=== PATIENT | male | born 1960 | race African-American/Black ===

== ENCOUNTER 2018-02-20 03:09 | Inpatient (IN) | payer OTHER, SELFPAY ==
[2018-02-20 03:38] LABS: #Basophils 0.1 thou/uL (0.0-0.2); #Eosinphils 0.3 thou/uL (0.0-0.7); #Lymphocytes 1.3 thou/uL (1.20-3.40); #Monocytes 0.7 thou/uL (0.11-0.59); #Neutrophils 5.5 thou/uL (1.40-6.50); %Basophils 0.7 % (0.0-1.0); %Eosinophils 3.7 % (0.0-10.0); %Lymphocytes 16.7 % (21.0-51.0); %Neutrophils 69.9 % (42.0-75.0); Mean Corpuscular HGB CONC 33.1 g/dL (32.0-36.0); Mean Corpuscular Hemoglobin 30.6 pg (27.0-31.0); Mean Corpuscular Volume 92.5 fL (78.0-98.0); Mean Platelet Volume 7.3 fL (7.4-10.4); Platelet Count 399 thou/uL (130-400); RBC Distribution Width 12.7 % (11.5-14.5); Red Blood Cell (RBC) Count 3.27 mill/uL (4.70-6.10); White Blood Cell (WBC) Count 7.9 thou/uL (4.8-10.8)
[2018-02-20] MEDS ORDERED: Furosemide 40 MG/4 ML VIAL ONE (03:44)
[2018-02-20] MEDS ORDERED: Nitroglycerin 2% Ointment 1 INCH/1 GM Packet ONE (03:44)
[2018-02-20 04:02] LABS: ALT (SGPT) 30 U/L (8-55); AST (SGOT) 22 U/L (5-34); Albumin 4.3 g/dL (3.5-5.0); Alkaline Phosphatase 82 U/L (40-150); Anion Gap 13 mmol/L (10-20); BUN (Urea Nitrogen) 27 mg/dL (8.4-25.7); Bilirubin, Total 0.7 mg/dL (0.2-1.2); Calc. Creatinine Clearance 0 mL/min (70-130); Calcium 9.7 mg/dL (7.8-10.44); Carbon Dioxide 23 mmol/L (22-29); Chloride 108 mmol/L (98-107); Estimated GFR-MDRD 36; Globulin 3.7 g/dL (2.4-3.5); Glucose 182 mg/dL (70-105); Potassium 4.5 mmol/L (3.5-5.1); Sodium 139 mmol/L (136-145)
[2018-02-20] MEDS ORDERED: Senokot S 8.6-50 MG TAB PO PRN (05:50)
[2018-02-20] MEDS ORDERED: Zolpidem Tartrate 5 MG TAB PO PRN (05:50)
[2018-02-20] MEDS ORDERED: Bisacodyl 10 MG SUPP PR PRN (05:50)
[2018-02-20] MEDS ORDERED: Ondansetron PF 4 MG/2 ML Vial IVP PRN (05:50)
[2018-02-20] MEDS ORDERED: Bisacodyl 5 MG TAB PO PRN (05:50)
[2018-02-20] MEDS ORDERED: Ondansetron ODT 4 MG TAB PO PRN (05:50)
[2018-02-20] MEDS ORDERED: Calcium Carbonate 500 MG ChewTAB PO PRN (05:50)
[2018-02-20] MEDS ORDERED: Acetaminophen 325 MG TAB PO PRN (05:50)
[2018-02-20 06:48] LABS: Troponin I Less than 0.010 ng/mL (< 0.028)
[2018-02-20] MEDS ORDERED: Eucerin (Mineral Oil/Petrolatum,White) 30 gm Jar TOP PRN (06:56)
[2018-02-20] MEDS ORDERED: Diabetic Tussin 200 MG/10 ML UDCUP PO PRN (06:56)
[2018-02-20] MEDS ORDERED: Loperamide HCl 2 MG CAP PO PRN (06:56)
[2018-02-20] MEDS ORDERED: Sodium Chloride 0.65% Nasal 44 ML BOT EA NARE PRN (06:56)
[2018-02-20] MEDS ORDERED: Artificial Tears 18 DROP/0.9 ML EA EYE PRN (06:56)
[2018-02-20] MEDS ORDERED: Cepastat Lozenges 1 LOZ PO PRN (06:56)
[2018-02-20] MEDS ORDERED: Loratadine 10 MG TAB PO PRN (06:56)
[2018-02-20] MEDS ORDERED: Nitroglycerin 0.4 MG TAB (25 Tab Bottle) SL PRN (06:56)
[2018-02-20] MEDS ORDERED: Dextrose 50% Abboject 50 ML SYRINGE SLOW IVP PRN (07:02)
[2018-02-20] MEDS ORDERED: Dextrose 5% in Water 1,000 ML IV PRN (07:02)
[2018-02-20] MEDS ORDERED: HumaLOG 300 UNITS/3 ML VIAL SC PRN ×2 (07:02)
--- NOTE | 2018-02-20 08:05 | RAD ---
SINGLE VIEW OF THE CHEST: COMPARISON: None. HISTORY: Shortness of breath. FINDINGS: A single view of the chest shows a normal-size cardiomediastinal silhouette. Bilateral perihilar ful lness is seen. No pleural effusion is seen. IMPRESSION: Perihilar fullness can be seen with reactive airways disease or atypical infection. POS: [facility]
[2018-02-20] MEDS: Ferrous Sulfate 325 MG TAB PO SCH (08:42)
[2018-02-20] MEDS: Carvedilol 6.25 MG TAB PO SCH ×2 (08:46→20:30)
[2018-02-20] MEDS: Heparin 5,000 UNITS/ML VIAL SC SCH ×3 (08:48→20:33)
[2018-02-20] MEDS ORDERED: Amlodipine 5 MG TAB ONE (08:57)
[2018-02-20] MEDS ORDERED: Aspirin 325 MG TAB ONE (08:57)
[2018-02-20] MEDS ORDERED: Famotidine 20 MG TAB ONE (08:57)
[2018-02-20] MEDS: Aspirin 325 MG TAB PO SCH (08:59)
[2018-02-20] MEDS: Amlodipine 5 MG TAB PO SCH (08:59)
[2018-02-20] MEDS: Famotidine 20 MG TAB PO SCH (08:59)
[2018-02-20] MEDS ORDERED: Famotidine/PF 20 mg/2ml Vial SLOW IVP SCH (09:00)
[2018-02-20] MEDS ORDERED: Amlodipine 10 MG TAB PO SCH (09:00)
[2018-02-20] MEDS ORDERED: Labetalol HCl 100 MG/20 ML VIAL SLOW IVP PRN (10:01)
[2018-02-20 10:24] LABS: Troponin I Less than 0.010 ng/mL (< 0.028)
--- NOTE | 2018-02-20 10:44 | HP ---
PRIMARY CARE PHYSICIAN: Dr. Grayson Corbin. REASON FOR ADMISSION: Acute pulmonary edema, acute diastolic heart failure. HISTORY OF PRESENT ILLNESS: A 58-year-old male, who has increasing shortness of breath for last 2 to 3 days. He also has increasing lower extremity edema for about a week or two. He has dyspnea at rest. Last night he woke up around 1:00 a.m. and he went to bathroom and he was feeling extremely short of breath and short of breath have gradually gotten worse to the point he was not able to breathe. He was not able to lie down flat and he was feeling congested in his chest and that is why he called 911 and the patient was brought to emergency room for evaluation. In the emergency room, the patient was hypertensive. His blood pressure was elevated to 217/122. He was in respiratory distress. He was given Lasix, labetalol, and nitro patch and after that, the patient slowly improved. The patient reports that he is taking medication as prescribed. He denies any chest pain, palpitation, or syncope. He denies any fever or chills. He denies any flu-like symptoms. He denies any UTI symptoms. He does report increased weight gain. He denies any constipation, diarrhea, melena, or hematochezia. REVIEW OF SYSTEMS: CONSTITUTIONAL: Negative for weight loss or gain, ability to conduct usual activities. SKIN: Negative for rash, itching. EYES: Negative for double vision, pain. ENT/MOUTH: Negative for nose bleeding, neck stiffness, pain, tenderness. CARDIOVASCULAR: Negative for palpitations, dyspnea on exertion, orthopnea. RESPIRATORY: Negative for shortness of breath, wheezing, cough, hemoptysis, fever or night sweats. GASTROINTESTINAL: Negative for poor appetite, abdominal pain, heartburn, nausea, vomiting, constipation, or diarrhea. GENITOURINARY: Negative for urgency, frequency, dysuria, nocturia. MUSCULOSKELETAL: Negative for pain, swelling. NEUROLOGIC/PSYCHIATRIC: Negative for anxiety, depression. ALLERGY/IMMUNOLOGIC: Negative for skin rash, bleeding tendency. See my HPI for pertinent positive and negative. All other review of systems reviewed and negative except as mentioned in HPI. ALLERGIES: NO KNOWN DRUG ALLERGIES. CURRENT HOME MEDICATIONS: 1. Glyburide with metformin 5/500 two tablets twice daily. 2. Coreg 25 mg twice daily. 3. Amlodipine 10 mg daily. 4. Zocor 20 mg p.o. at bedtime. PAST MEDICAL HISTORY: Diabetes, type 2; hypertension; dyslipidemia; CKD, stage 3; and normocytic anemia. PAST SURGICAL HISTORY: Reviewed and negative. PAST PSYCHIATRIC HISTORY: Reviewed and negative. SOCIAL HISTORY: The patient is , lives at home with family. No history of tobacco, alcohol, or illicit drug abuse. FAMILY HISTORY: No family history of stroke or cancer. Hypertension and diabetes runs among several family members. EMERGENCY ROOM COURSE: The patient is given labetalol 10 mg, Lasix 40 mg, and nitro patch. PHYSICAL EXAMINATION: VITAL SIGNS: On arrival, blood pressure 217/122, pulse 104, respiratory rate 25, and saturation 96% on 2 L oxygen. Weight 111.1 kg. GENERAL: The patient is currently alert, awake. No obvious acute distress. HEENT: Head; normocephalic, atraumatic. Eyes; pupils are round and reactive to light. Extraocular muscle intact. ENT; oropharynx within normal limits. Moist mucous membranes. No oral lesion. No pharyngeal erythema. No exudate. NECK: Supple. No JVD. No thyromegaly. No carotid bruit. LUNGS: Few basilar rales noted. Air entry reduced. CARDIAC: S1 and S2 regular. No murmur elicited. No gallop. No rub. ABDOMEN: Soft. Bowel sounds present. Nontender. Nondistended. No organomegaly. No mass. No suprapubic tenderness. BACK: Unremarkable. No CVA tenderness. EXTREMITIES: Upper extremities; passive movement of all joints are normal. Lower extremity; bilateral lower extremity pitting edema +2 up to knee level. NEUROLOGIC: Nonfocal examination. The patient moves all 4 limbs. Plantar bilateral flexor. SKIN: No skin rash. PSYCHIATRIC: Normal affect. SIGNIFICANT LABORATORY DATA: 1. EKG showing sinus tachycardia, low voltage QRS. 2. Chest x-ray showing pulmonary edema. 3. CBC; WBC 7.9, hemoglobin 10.0, and platelets 399. 4. BMP; sodium 139, potassium 4.5, chloride 108, carbon dioxide 23, BUN 27, creatinine 2.28, glucose 182, and calcium 9.7. 5. LFT; AST 22, ALT 30, alkaline phosphatase 82, and albumin 4.3. Cardiac enzyme negative x2. BNP 379.4. ASSESSMENT AND PLAN: 1. Acute pulmonary edema, likely due to underlying acute diastolic heart failure as well as hypertensive urgency. Currently, problem seems resolved and improved with Lasix and nitro patch. 2. Acute diastolic heart failure, stage C, likely precipitated by hypertensive urgency associated with acute pulmonary edema, seems like the condition is improving, but he still has significant fluid overload status, will require diuresis. 3. Hypertensive urgency, likely related with gradual worsening of fluid overload status. 4. Diabetes, type 2. 5. Anemia, normocytic normochromic. 6. Chronic kidney disease, stage 3. 7. Dyslipidemia. 8. Hypertension. PLAN: Full admission to telemetry floor. Nitro patch q.8 hourly. Restart amlodipine 10 mg daily. Coreg, we will reduce to 12.5 mg p.o. b.i.d. given pulmonary edema. Start Lipitor 10 mg p.o. at bedtime, ferrous sulfate 325 mg p.o. daily. Continue Lasix 40 mg IV b.i.d. We will monitor renal function, electrolytes, and replace accordingly. Daily weight. Echocardiography to assess EF and other structural abnormality. We will hold on his oral hypoglycemic medication because of renal insufficiency, instead we will start with hyperglycemia protocol order. We will check ferritin, hemoglobin A1c, magnesium, phosphorus, PTH, uric acid, TSH. Tomorrow morning, we will also check urine protein-creatinine ratio. Dietary education is given. Plan of care discussed with the patient and his . DVT prophylaxis, heparin 5000 units subcu twice daily. GI prophylaxis, Pepcid 20 mg p.o. daily. CODE STATUS: The patient is full code. The patient's is surrogate decision maker. DISPOSITION PLAN: Based on clinical course, we are expecting the patient's stay in hospital more than 2 midnights. Plan of care discussed with the patient in detail. Job ID: [id number]
[2018-02-20 11:05] VITALS: BMI 35.8
[2018-02-20] MEDS: hydrALAZINE 20 MG/ML VIAL SLOW IVP PRN ×2 (11:33→15:56)
[2018-02-20] MEDS ORDERED: hydrALAZINE 25 MG TAB PO SCH (13:15)
[2018-02-20 13:27] LABS: Bilirubin Negative (Negative); Blood, Urine Small (Negative); Clarity CLEAR (Clear); Glucose, Urine (Dipstick) 100 mg/dL (Negative); Leukocyte Negative (Negative); Nitrite Negative (Negative); Protein, Urine (Dipstick) 300 mg/dL (Neg-Trace); Specific Gravity, Urine 1.011 (1.002-1.036); pH, Urine 5.5 (5.0-9.0)
[2018-02-20 13:32] LABS: Bacteria/HPF None Seen HPF (None Seen); Hyaline Casts/LPF 0-3 HYALINE CAST LPF (0-3 Hyaline); RBC/HPF 0-3 HPF (0-3); Squamous Epithelial None Seen HPF (0-3); WBC/HPF None Seen HPF (0-3)
[2018-02-20] MEDS: Nitroglycerin 2% Ointment 1 INCH/1 GM Packet TOP SCH ×2 (13:48→21:27)
[2018-02-20] MEDS: Furosemide 40 MG/4 ML VIAL SLOW IVP SCH (13:48)
[2018-02-20 15:06] LABS: Creatinine, Urine 57.26 mg/dL (63-166)
[2018-02-20] MEDS: hydrALAZINE 25 MG TAB PO SCH ×2 (17:42→23:09)
[2018-02-20] MEDS: Atorvastatin Calcium 10 MG TAB PO SCH (20:30)
[2018-02-21] MEDS: Nitroglycerin 2% Ointment 1 INCH/1 GM Packet TOP SCH ×3 (05:29→21:26)
[2018-02-21] MEDS: hydrALAZINE 25 MG TAB PO SCH ×4 (05:29→23:19)
[2018-02-21] MEDS: Furosemide 40 MG/4 ML VIAL SLOW IVP SCH ×2 (05:29→14:12)
[2018-02-21 06:27] LABS: #Eosinphils 0.2 thou/uL (0.0-0.7); #Lymphocytes 1.6 thou/uL (1.20-3.40); #Monocytes 0.6 thou/uL (0.11-0.59); #Neutrophils 3.4 thou/uL (1.40-6.50); %Basophils 0.6 % (0.0-1.0); %Eosinophils 3.2 % (0.0-10.0); %Neutrophils 58.2 % (42.0-75.0); Hemoglobin 8.8 g/dL (14.0-18.0); Mean Corpuscular HGB CONC 32.9 g/dL (32.0-36.0); Mean Corpuscular Hemoglobin 30.8 pg (27.0-31.0); Mean Corpuscular Volume 93.7 fL (78.0-98.0); Mean Platelet Volume 7.2 fL (7.4-10.4); Platelet Count 338 thou/uL (130-400); RBC Distribution Width 12.9 % (11.5-14.5); Red Blood Cell (RBC) Count 2.85 mill/uL (4.70-6.10); White Blood Cell (WBC) Count 5.8 thou/uL (4.8-10.8)
[2018-02-21 06:32] LABS: Hemoglobin A1c 9.7 % (4.0-6.0)
[2018-02-21 06:45] LABS: Phosphorus 3.3 mg/dL (2.3-4.7)
[2018-02-21 06:52] LABS: Anion Gap 12 mmol/L (10-20); BUN (Urea Nitrogen) 26 mg/dL (8.4-25.7); Calc. Creatinine Clearance 51 mL/min (70-130); Calcium 9.1 mg/dL (7.8-10.44); Carbon Dioxide 23 mmol/L (22-29); Cardiac Risk 3.1 (Less than 4.5); Chloride 107 mmol/L (98-107); Cholesterol 118 mg/dl (< 200 Desired); Estimated GFR-MDRD 35; Glucose 142 mg/dL (70-105); HDL Cholesterol 38 mg/dL (>60 Neg Risk); LDL Cholesterol, Calculated 63 mg/dL; Magnesium 1.7 mg/dL (1.6-2.6); Potassium 3.8 mmol/L (3.5-5.1); Sodium 138 mmol/L (136-145); Triglycerides 86 mg/dL (Less than 150); Uric Acid 7.9 mg/dL (3.5-7.2)
[2018-02-21 07:08] LABS: Ferritin 111.85 ng/mL (22-322); Thyroid Stimulating Hormone 1.7295 uIU/mL (0.35-4.94)
[2018-02-21] MEDS: Amlodipine 5 MG TAB PO SCH (08:26)
[2018-02-21] MEDS: Famotidine 20 MG TAB PO SCH (08:26)
[2018-02-21] MEDS: hydrALAZINE 20 MG/ML VIAL SLOW IVP PRN (08:26)
[2018-02-21] MEDS: Heparin 5,000 UNITS/ML VIAL SC SCH ×3 (08:26→20:05)
[2018-02-21] MEDS: Ferrous Sulfate 325 MG TAB PO SCH (08:26)
[2018-02-21] MEDS: Aspirin 325 MG TAB PO SCH (08:27)
[2018-02-21] MEDS: Carvedilol 25 MG TAB PO SCH ×2 (08:29→20:04)
--- NOTE | 2018-02-21 10:54 | PDOC.PN ---
- Subjective Encounter Start Date: 02/21/18 Encounter Start Time: 07:20 Patient seen and examined. No new complaints. No overnight events - Objective MAR Reviewed: Yes Vital Signs & Weight: Vital Signs (12 hours) Temp Pulse Resp BP BP BP Pulse Ox 02/21/18 09:35 76 112/56 L 02/21/18 08:26 81 96 02/21/18 08:18 98.5 F 81 18 186/81 H 96 02/21/18 04:00 98.1 F 85 18 156/71 H 95 02/20/18 23:10 98 F 93 20 134/61 94 L 02/20/18 23:09 93 134/61 Weight Weight 230 lb I&O: 02/20/18 02/21/18 02/22/18 06:59 06:59 06:59 Intake Total 960 Output Total 1000 Balance -40 Result Diagrams: 02/21/18 06:01 02/21/18 06:01 Additional Labs: Accuchecks 02/20/18 02/20/18 02/20/18 20:24 16:45 11:15 POC Glucose 213 H 145 H 193 H EKG Reviewed by me: Yes (nsr) Phys Exam - Physical Examination Constitutional: NAD HEENT: PERRLA, moist MMs, sclera anicteric Neck: no JVD, supple Respiratory: no wheezing, no rales, no rhonchi Cardiovascular: RRR, no significant murmur, no rub Gastrointestinal: soft, non-tender, no distention, positive bowel sounds Musculoskeletal: pulses present, edema present Neurological: non-focal, normal sensation, moves all 4 limbs Lymphatic: no nodes Psychiatric: normal affect, A&O x 3 Skin: no rash, normal turgor Dx/Plan (1) Acute diastolic ACC/AHA stage C congestive heart failure Code(s): I50.31 - ACUTE DIASTOLIC (CONGESTIVE) HEART FAILURE Status: Acute (2) Acute pulmonary edema Code(s): J81.0 - ACUTE PULMONARY EDEMA Status: Resolved (3) Hypertensive urgency Code(s): I16.0 - HYPERTENSIVE URGENCY Status: Resolved (4) Nephrotic range proteinuria Code(s): R80.9 - PROTEINURIA, UNSPECIFIED Status: Acute (5) Anemia, normocytic normochromic Code(s): D64.9 - ANEMIA, UNSPECIFIED Status: Chronic (6) CKD (chronic kidney disease) stage 3, GFR 30-59 ml/min Code(s): N18.3 - CHRONIC KIDNEY DISEASE, STAGE 3 (MODERATE) Status: Chronic (7) Diabetes type 2, controlled Code(s): E11.9 - TYPE 2 DIABETES MELLITUS WITHOUT COMPLICATIONS Status: Chronic (8) Diabetic nephropathy Status: Chronic (9) Dyslipidemia Code(s): E78.5 - HYPERLIPIDEMIA, UNSPECIFIED Status: Chronic (10) Hypertension Code(s): I10 - ESSENTIAL (PRIMARY) HYPERTENSION Status: Chronic (11) Obesity (BMI 30-39.9) Code(s): E66.9 - OBESITY, UNSPECIFIED Status: Chronic - Plan cont current plan of care, plan discussed w/ family * echo pending * continue diuresis * medication reviewed as below * symptomatic treatment * discussed with * monitor labs * now BP well controlled. Review of Systems - Review of Systems Constitutional: negative: fever, chills, sweats, weakness, malaise, other Eyes: negative: Pain, Vision Change, Conjunctivae Inflammation, Eyelid Inflammation, Redness, Other ENT: negative: Ear Pain, Ear Discharge, Nose Pain, Nose Discharge, Nose Congestion, Mouth Pain, Mouth Swelling, Throat Pain, Throat Swelling, Other Respiratory: negative: Cough, Dry, Shortness of Breath, Hemoptysis, SOB with Excertion, Pleuritic Pain, Sputum, Wheezing Cardiovascular: edema. negative: chest pain, palpitations, orthopnea, paroxysmal nocturnal dyspnea, light headedness, other Gastrointestinal: negative: Nausea, Vomiting, Abdominal Pain, Diarrhea, Constipation, Melena, Hematochezia, Other Genitourinary: negative: Dysuria, Frequency, Incontinence, Hematuria, Retention , Other Musculoskeletal: negative: Neck Pain, Shoulder Pain, Arm Pain, Back Pain, Hand Pain, Leg Pain, Foot Pain, Other Skin: negative: Rash, Lesions, Garcia, Bruising, Other - Medications/Allergies Allergies/Adverse Reactions: Allergies Allergy/AdvReac Type Severity Reaction Status Date / Time No Known Allergies Allergy Verified 02/20/18 11:03 Medications: Current Medications Acetaminophen (Tylenol) 650 mg PO Q4H PRN PRN Reason: Headache/Fever/Mild Pain (1-3) Amlodipine Besylate (Norvasc) 10 mg PO DAILY [facility] Last Admin: 02/21/18 08:26 Dose: 10 mg Artificial Tears (Tears Naturale) 2 drop EA EYE PRN PRN PRN Reason: Dry Eyes Aspirin (Aspirin) 325 mg PO DAILY [facility] Last Admin: 02/21/18 08:27 Dose: 325 mg Atorvastatin Calcium (Lipitor) 10 mg PO HS [facility] Last Admin: 02/20/18 20:30 Dose: 10 mg Bisacodyl (Dulcolax) 10 mg PO DAILYPRN PRN PRN Reason: Constipation Bisacodyl (Dulcolax) 10 mg [place] DAILYPRN PRN PRN Reason: Constipation Calcium Carbonate (Tums) 1,000 mg PO Q4H PRN PRN Reason: Heartburn or Indigestion Carvedilol (Coreg) 25 mg PO BID [facility] Last Admin: 02/21/18 08:29 Dose: 25 mg Dextrose/Water (Dextrose 50%) 25 gm SLOW IVP PRN PRN PRN Reason: Hypoglycemia [facility]amotidine ([facility]epcid) [facility] Admin: 02/21/18 08:26 Dose: 20 mg Ferrous [facility] ([facility]) [facility] Last Admin: 02/21/18 08:26 Dose: 325 mg Furosemide (Lasix) 40 mg SLOW IVP 0600,1400 [facility] Last Admin: 02/21/18 05:29 Dose: 40 mg Glucagon (Glucagon) 1 mg IM PRN PRN PRN Reason: Hypoglycemia Guaifenesin (Robitussin Sf) 200 mg PO Q4H PRN PRN Reason: Cough Heparin Sodium (Porcine) (Heparin) 5,000 units SC TID [facility] Last Admin: 02/21/18 08:26 Dose: 5,000 units Hydralazine HCl (Apresoline) 10 mg SLOW IVP Q4H PRN PRN Reason: SBP > 180 and HR < 70 Last Admin: 02/21/18 08:26 Dose: 10 mg Hydralazine HCl (Apresoline) 25 mg PO Q6HR [facility] Last Admin: 02/21/18 05:29 Dose: 25 mg Dextrose/Water (D5w) 1,000 mls @ 0 mls/hr IV .Q0M PRN PRN Reason: Hypoglycemia Insulin Glargine 50 units/ (Miscellaneous Medication) 0.5 mls @ 0 mls/hr [facility] Insulin Human Lispro (Humalog) 0 units SC .MODERATE SLIDING SC PRN PRN Reason: Moderate Correctional Scale Insulin Human Lispro (Humalog) 0 units SC .BEDTIME SLIDING SC PRN PRN Reason: Bedtime Correctional Scale Loperamide HCl (Imodium) 2 mg PO PRN PRN PRN Reason: Diarrhea/Loose Stools Loratadine (Claritin) 10 mg PO DAILYPRN PRN PRN Reason: Sinus Symptoms Mineral Oil/White Petrolatum (Eucerin Cream) 0 gm TOP BIDPRN PRN PRN Reason: Dry Skin Nitroglycerin (Nitro-Bid 2% Ointment) 0.5 inch TOP Q8HR [facility] Last Admin: 02/21/18 05:29 Dose: 0.5 inch Nitroglycerin (Nitrostat) 0.4 mg SL Q5MIN PRN PRN Reason: Chest Pain Ondansetron HCl (Zofran Odt) 4 mg PO Q6H PRN PRN Reason: Nausea/Vomiting Ondansetron HCl (Zofran) 4 mg IVP Q6H PRN PRN Reason: Nausea/Vomiting Senna/Docusate Sodium (Senokot S) 2 tab PO BID PRN PRN Reason: Constipation Sodium Chloride (Flush - Normal Saline) 10 ml IVF Q12HR PRN PRN Reason: Saline Flush Sodium Chloride (Flush - Normal Saline) 10 ml IVF PRN PRN PRN Reason: Saline Flush Last Admin: 02/21/18 05:29 Dose: 10 ml Sodium Chloride ([place] Nasal [place] 0.65%) 0 ml EA NARE QIDPRN PRN PRN Reason: Nasal Congestion Throat Lozenges (Cepastat Lozenges) 1 annie PO Q2H PRN PRN Reason: Sore Throat Zolpidem Tartrate (Ambien) 5 mg PO HSPRN PRN PRN Reason: Insomnia
[2018-02-21] MEDS: Atorvastatin Calcium 10 MG TAB PO SCH (20:04)
[2018-02-21] MEDS: PRE FILLED SC SCH (20:06)
[2018-02-21] MEDS: INSULIN GLARGINE SC SCH (20:06)
[2018-02-22] MEDS: Furosemide 40 MG/4 ML VIAL SLOW IVP SCH ×2 (05:06→14:51)
[2018-02-22] MEDS: hydrALAZINE 25 MG TAB PO SCH ×4 (05:07→23:59)
[2018-02-22 05:08] LABS: #Basophils 0.1 thou/uL (0.0-0.2); #Eosinphils 0.2 thou/uL (0.0-0.7); #Lymphocytes 1.5 thou/uL (1.20-3.40); #Monocytes 0.7 thou/uL (0.11-0.59); #Neutrophils 2.7 thou/uL (1.40-6.50); %Eosinophils 4.3 % (0.0-10.0); %Lymphocytes 28.7 % (21.0-51.0); %Monocytes 13.3 % (0.0-10.0); %Neutrophils 52.7 % (42.0-75.0); Hemoglobin 8.4 g/dL (14.0-18.0); Mean Corpuscular HGB CONC 32.6 g/dL (32.0-36.0); Mean Corpuscular Hemoglobin 30.5 pg (27.0-31.0); Mean Corpuscular Volume 93.5 fL (78.0-98.0); Platelet Count 301 thou/uL (130-400); RBC Distribution Width 12.6 % (11.5-14.5); Red Blood Cell (RBC) Count 2.74 mill/uL (4.70-6.10); White Blood Cell (WBC) Count 5.2 thou/uL (4.8-10.8)
[2018-02-22] MEDS: Nitroglycerin 2% Ointment 1 INCH/1 GM Packet TOP SCH ×3 (05:08→21:14)
[2018-02-22 05:26] LABS: Anion Gap 14 mmol/L (10-20); BUN (Urea Nitrogen) 33 mg/dL (8.4-25.7); Calc. Creatinine Clearance 49 mL/min (70-130); Calcium 8.8 mg/dL (7.8-10.44); Carbon Dioxide 22 mmol/L (22-29); Chloride 106 mmol/L (98-107); Estimated GFR-MDRD 33; Glucose 83 mg/dL (70-105); Potassium 3.7 mmol/L (3.5-5.1); Sodium 138 mmol/L (136-145)
[2018-02-22] MEDS: Amlodipine 5 MG TAB PO SCH (08:16)
[2018-02-22] MEDS: Famotidine 20 MG TAB PO SCH (08:17)
[2018-02-22] MEDS: Aspirin 325 MG TAB PO SCH (08:17)
[2018-02-22] MEDS: Ferrous Sulfate 325 MG TAB PO SCH (08:17)
[2018-02-22] MEDS: Carvedilol 25 MG TAB PO SCH ×2 (08:17→21:17)
[2018-02-22] MEDS: Heparin 5,000 UNITS/ML VIAL SC SCH ×3 (08:18→21:16)
--- NOTE | 2018-02-22 09:46 | PDOC.PN ---
- Subjective Encounter Start Date: 02/22/18 Encounter Start Time: 07:20 Patient seen and examined. No new complaints. No overnight events - Objective MAR Reviewed: Yes Vital Signs & Weight: Vital Signs (12 hours) Temp Pulse Resp BP BP BP Pulse Ox 02/22/18 08:16 73 02/22/18 08:15 73 16 144/73 H 96 02/22/18 05:07 74 144/71 H 02/22/18 03:12 98.6 F 74 18 144/71 H 96 02/21/18 23:20 98.4 F 80 20 114/55 L 97 02/21/18 23:19 80 114/55 L Weight Weight 233 lb 6.4 oz I&O: 02/21/18 02/22/18 02/23/18 06:59 06:59 06:59 Intake Total 960 400 Output Total 1000 1200 800 Balance -40 -1200 -400 Result Diagrams: 02/22/18 04:56 02/22/18 04:56 Additional Labs: Accuchecks 02/22/18 02/21/18 02/21/18 05:43 20:17 16:38 POC Glucose 77 253 H 122 H 02/21/18 02/21/18 11:03 05:35 POC Glucose 208 H 146 H EKG Reviewed by me: Yes (nsr) Phys Exam - Physical Examination Constitutional: NAD HEENT: PERRLA, moist MMs, sclera anicteric Neck: no JVD, supple Respiratory: no wheezing, no rales, no rhonchi Cardiovascular: RRR, no significant murmur, no rub Gastrointestinal: soft, non-tender, no distention, positive bowel sounds Musculoskeletal: pulses present, edema present Neurological: non-focal, normal sensation, moves all 4 limbs Lymphatic: no nodes Psychiatric: normal affect, A&O x 3 Skin: no rash, normal turgor Dx/Plan (1) Acute diastolic ACC/AHA stage C congestive heart failure Code(s): I50.31 - ACUTE DIASTOLIC (CONGESTIVE) HEART FAILURE Status: Acute (2) Acute pulmonary edema Code(s): J81.0 - ACUTE PULMONARY EDEMA Status: Resolved (3) Hypertensive urgency Code(s): I16.0 - HYPERTENSIVE URGENCY Status: Resolved (4) Nephrotic range proteinuria Code(s): R80.9 - PROTEINURIA, UNSPECIFIED Status: Acute (5) Anemia, normocytic normochromic Code(s): D64.9 - ANEMIA, UNSPECIFIED Status: Chronic (6) CKD (chronic kidney disease) stage 3, GFR 30-59 ml/min Code(s): N18.3 - CHRONIC KIDNEY DISEASE, STAGE 3 (MODERATE) Status: Chronic (7) Diabetes type 2, controlled Code(s): E11.9 - TYPE 2 DIABETES MELLITUS WITHOUT COMPLICATIONS Status: Chronic (8) Diabetic nephropathy Status: Chronic (9) Dyslipidemia Code(s): E78.5 - HYPERLIPIDEMIA, UNSPECIFIED Status: Chronic (10) Hypertension Code(s): I10 - ESSENTIAL (PRIMARY) HYPERTENSION Status: Chronic (11) Obesity (BMI 30-39.9) Code(s): E66.9 - OBESITY, UNSPECIFIED Status: Chronic - Plan cont current plan of care, plan discussed w/ family * continue one more day IV diuresis * echo result pending * expecting discharge tomorrow * medication reviewed as below * symptomatic treatment. Review of Systems - Review of Systems ENT: negative: Ear Pain, Ear Discharge, Nose Pain, Nose Discharge, Nose Congestion, Mouth Pain, Mouth Swelling, Throat Pain, Throat Swelling, Other Respiratory: negative: Cough, Dry, Shortness of Breath, Hemoptysis, SOB with Excertion, Pleuritic Pain, Sputum, Wheezing Cardiovascular: edema. negative: chest pain, palpitations, orthopnea, paroxysmal nocturnal dyspnea, light headedness, other Gastrointestinal: negative: Nausea, Vomiting, Abdominal Pain, Diarrhea, Constipation, Melena, Hematochezia, Other Genitourinary: negative: Dysuria, Frequency, Incontinence, Hematuria, Retention , Other Musculoskeletal: negative: Neck Pain, Shoulder Pain, Arm Pain, Back Pain, Hand Pain, Leg Pain, Foot Pain, Other Skin: negative: Rash, Lesions, Garcia, Bruising, Other - Medications/Allergies Allergies/Adverse Reactions: Allergies Allergy/AdvReac Type Severity Reaction Status Date / Time No Known Allergies Allergy Verified 02/20/18 11:03 Medications: Current Medications Acetaminophen (Tylenol) 650 mg PO Q4H PRN PRN Reason: Headache/Fever/Mild Pain (1-3) Amlodipine Besylate (Norvasc) 10 mg PO DAILY [facility] Last Admin: 02/22/18 08:16 Dose: 10 mg Artificial Tears (Tears Naturale) 2 drop EA EYE PRN PRN PRN Reason: Dry Eyes Aspirin (Aspirin) 325 mg PO DAILY [facility] Last Admin: 02/22/18 08:17 Dose: 325 mg Atorvastatin Calcium (Lipitor) 10 mg PO [facility] Last Admin: 02/21/18 20:04 Dose: 10 mg Bisacodyl (Dulcolax) 10 mg PO DAILYPRN PRN PRN Reason: Constipation Bisacodyl (Dulcolax) 10 mg [place] DAILYPRN PRN PRN Reason: Constipation Calcium Carbonate (Tums) 1,000 mg PO Q4H PRN PRN Reason: Heartburn or Indigestion Carvedilol (Coreg) 25 mg PO BID [facility] Last Admin: 02/22/18 08:17 Dose: 25 mg Dextrose/Water (Dextrose 50%) 25 gm SLOW IVP PRN PRN PRN Reason: Hypoglycemia Famotidine (Pepcid) 20 mg PO QAM [facility] Last Admin: 02/22/18 08:17 Dose: 20 mg Ferrous Sulfate (Feosol) 325 mg PO [facility] Last Admin: 02/22/18 08:17 Dose: 325 mg Furosemide (Lasix) 40 mg SLOW IVP 0600,1400 [facility] Last Admin: 02/22/18 05:06 Dose: 40 mg Glucagon (Glucagon) 1 mg IM PRN PRN PRN Reason: Hypoglycemia Guaifenesin (Robitussin Sf) 200 mg PO Q4H PRN PRN Reason: Cough Heparin Sodium (Porcine) (Heparin) 5,000 units SC TID [facility] Last Admin: 02/22/18 08:18 Dose: 5,000 units Hydralazine HCl (Apresoline) 10 mg SLOW IVP Q4H PRN PRN Reason: SBP > 180 and HR < 70 Last Admin: 02/21/18 08:26 Dose: 10 mg Hydralazine HCl (Apresoline) 25 mg PO Q6HR [facility] Last Admin: 02/22/18 05:07 Dose: 25 mg Dextrose/Water (D5w) 1,000 mls @ 0 mls/hr IV .Q0M PRN PRN Reason: Hypoglycemia Insulin Glargine 50 units/ (Miscellaneous Medication) 0.5 mls @ 0 mls/hr SC [facility] Last Admin: 02/21/18 20:06 Dose: 0.5 mls Insulin Human Lispro (Humalog) 0 units SC .MODERATE SLIDING SC PRN PRN Reason: Moderate Correctional Scale Last Admin: 02/21/18 11:47 Dose: 4 unit Insulin Human Lispro (Humalog) 0 units SC .BEDTIME SLIDING SC PRN PRN Reason: Bedtime Correctional Scale Loperamide HCl (Imodium) 2 mg PO PRN PRN PRN Reason: Diarrhea/Loose Stools Loratadine (Claritin) 10 mg PO DAILYPRN PRN PRN Reason: Sinus Symptoms Mineral Oil/White Petrolatum (Eucerin Cream) 0 gm TOP BIDPRN PRN PRN Reason: Dry Skin Nitroglycerin (Nitro-Bid 2% Ointment) 0.5 inch TOP Q8HR [facility] Last Admin: 02/22/18 05:08 Dose: 0.5 inch Nitroglycerin (Nitrostat) 0.4 mg SL Q5MIN PRN PRN Reason: Chest Pain Ondansetron HCl (Zofran Odt) 4 mg PO Q6H PRN PRN Reason: Nausea/Vomiting Ondansetron HCl (Zofran) 4 mg IVP Q6H PRN PRN Reason: Nausea/Vomiting Senna/Docusate Sodium (Senokot S) 2 tab PO BID PRN PRN Reason: Constipation Sodium Chloride (Flush - Normal Saline) 10 ml IVF Q12HR PRN PRN Reason: Saline Flush Last Admin: 02/21/18 20:04 Dose: 10 ml Sodium Chloride (Flush - Normal Saline) 10 ml IVF PRN PRN PRN Reason: Saline Flush Last Admin: 02/22/18 05:06 Dose: 10 ml Sodium Chloride ([place] Nasal [place] 0.65%) 0 ml EA NARE QIDPRN PRN PRN Reason: Nasal Congestion Throat Lozenges (Cepastat Lozenges) 1 annie PO Q2H PRN PRN Reason: Sore Throat Zolpidem Tartrate (Ambien) 5 mg PO HSPRN PRN PRN Reason: Insomnia
[2018-02-22] MEDS: INSULIN GLARGINE SC SCH (21:17)
[2018-02-22] MEDS: Atorvastatin Calcium 10 MG TAB PO SCH (21:17)
[2018-02-22] MEDS: PRE FILLED SC SCH (21:17)
[2018-02-23] MEDS: hydrALAZINE 25 MG TAB PO SCH (05:59)
[2018-02-23] MEDS: Furosemide 40 MG/4 ML VIAL SLOW IVP SCH (05:59)
[2018-02-23] MEDS: Nitroglycerin 2% Ointment 1 INCH/1 GM Packet TOP SCH (06:00)
[2018-02-23] MEDS ORDERED: hydrALAZINE 25 MG TAB PO SCH (09:00)
[2018-02-23] MEDS: Ferrous Sulfate 325 MG TAB PO SCH (09:09)
[2018-02-23] MEDS: Carvedilol 25 MG TAB PO SCH (09:09)
[2018-02-23] MEDS: Aspirin 325 MG TAB PO SCH (09:09)
[2018-02-23] MEDS: Amlodipine 5 MG TAB PO SCH (09:09)
[2018-02-23] MEDS: Famotidine 20 MG TAB PO SCH (09:10)
[2018-02-23] MEDS: Heparin 5,000 UNITS/ML VIAL SC SCH (09:10)
--- NOTE | 2018-02-23 10:38 | DIS ---
DATE OF ADMISSION: 02/20/2018 DATE OF DISCHARGE: 02/23/2018 PRIMARY CARE PHYSICIAN: Dr. Grayson Corbin. DISCHARGE DISPOSITION: Home. PRIMARY DISCHARGE DIAGNOSES: 1. Acute pulmonary edema, resolved. 2. Hypertensive urgency, controlled. 3. Acute diastolic stage III congestive heart failure. 4. Nephrotic range proteinuria. SECONDARY DISCHARGE DIAGNOSES: 1. Obesity with BMI 33. 2. Hypertension. 3. Dyslipidemia. 4. Diabetes type 2. 5. Diabetic nephropathy. 6. Chronic kidney disease stage 3. 7. Normocytic normochromic anemia. PRIMARY PROCEDURE/OPERATION: None. RADIOLOGICAL INVESTIGATION: Chest x-ray showed pulmonary vascular congestion. Echocardiography showed diastolic dysfunction, moderate tricuspid regurgitation. SIGNIFICANT LABORATORY DATA: WBC 5.2, hemoglobin 8.4, and platelets 301. Sodium 138, potassium 3.7, BUN 23, creatinine 2.44, glucose 83, calcium 8.8. Hemoglobin A1c 9.7. Uric acid 7.9. LDL 63. DISCHARGE MEDICATIONS: 1. Amlodipine 10 mg daily. 2. Coreg 25 mg p.o. b.i.d. 3. Glyburide with metformin 5/500 two tablets twice daily. 4. Lantus insulin 50 units at bedtime. 5. Zocor 20 mg p.o. at bedtime. 6. Aspirin 325 mg daily. 7. Pepcid 20 mg daily. 8. Ferrous sulfate 325 mg daily. 9. Lasix 40 mg b.i.d. 10. Hydralazine 50 mg b.i.d. 11. Imdur 30 mg p.o. daily. CONTRAINDICATION: None. CODE STATUS: Full code. INPATIENT BELT MEASURER: None. ALLERGIES: NO KNOWN DRUG ALLERGIES. DISCHARGE PLAN: Posthospital, the patient will follow up with primary care physician in 1 week. HOSPITAL COURSE: A 58-year-old male, who was admitted by me on February 20, 2018. Please see my HPI for further details. The patient has underlying history of hypertension, diabetes, and diabetic nephropathy, who was acutely got short of breath during nighttime, but his shortness of breath and edema were gradually getting worse. He was admitted for hypertensive urgency and acute pulmonary edema in the emergency room, which were treated with Lasix and nitroglycerin patch, and after that, the patient's condition slightly improved. He was having significant edema and fluid overload status and that is why we admitted this patient to the hospital. We treated him with Lasix. His edema significantly improved. His pulmonary edema resolved. His blood pressure is well controlled with above-mentioned medication. The patient's renal function is stable in his range. We did echocardiography, which showed normal EF and tricuspid regurgitation. The patient wants to go home. I have provided necessary patient education about diet, fluid restriction, compliance with the treatment, and follow up with primary care physician. The patient agreed with the plan. I spoke with the patient and his . REVIEW OF SYSTEMS: Reviewed with him and negative. PHYSICAL EXAMINATION: VITAL SIGNS: Currently, temperature 97.9, pulse 71, respiratory rate 16, saturation 97%, and blood pressure 126/64. Weight 220 pounds. GENERAL: The patient is currently alert and awake, no obvious acute distress. HEENT: Head; normocephalic, atraumatic. Eyes; pupils round, reactive to light. Extraocular muscle intact. ENT; oropharynx within normal limits. Moist mucous membranes. No oral lesion. No pharyngeal erythema. No exudate. NECK: Supple. No JVD. No thyromegaly. No carotid bruit. LUNGS: Clear to auscultation without any rhonchi or rales. CARDIAC: S1 and S2 regular without any murmur. ABDOMEN: Soft and benign. EXTREMITIES: Trace edema noted. NEUROLOGICAL: Nonfocal examination. Overall, the patient is medically stable for discharge today. All new medication prescription sent to his pharmacy. Job ID: [id number]
[2018-02-23 12:00] VITALS: BP 134/63; TEMP 97.4
== END 2018-02-23 13:18 | disposition home or self-care (01) | DRG 291 ==
LOC: ERS 03:09 → ERHOLD 05:24 → 2NO 09:15
PROVIDERS: ADMIT Internal Medicine; ATTEND Internal Medicine
DX: I13.0 Hypertensive heart and chronic kidney disease with heart failure and stage 1 through stage 4 chronic kidney disease, or unspecified chronic kidney disease (principal); I50.31 Acute diastolic (congestive) heart failure; E11.22 Type 2 diabetes mellitus with diabetic chronic kidney disease; N18.3 Chronic kidney disease, stage 3 (moderate); E78.5 Hyperlipidemia, unspecified; I16.0 Hypertensive urgency; D64.9 Anemia, unspecified; R80.9 Proteinuria, unspecified; E11.21 Type 2 diabetes mellitus with diabetic nephropathy; Z83.3 Family history of diabetes mellitus; Z82.49 Family history of ischemic heart disease and other diseases of the circulatory system
CPT/HCPCS: 36415; 36416; 71045; 80048; 80053; 80061; 81001; 82570; 82728; 83036; 83735; 83880; 83970; 84100; 84156; 84443; 84484; 84550; 85025; 93005; 93306; 93798; 96374; 96375; J0360; J1644; J1940; J3490

== ENCOUNTER 2020-02-23 11:11 | Inpatient (IN) | payer SELFPAY ==
--- NOTE | 2020-02-23 11:43 | RAD ---
EXAM: CHEST ONE VIEW HISTORY: Altered mental status COMPARISON: 02/20/2018 FINDINGS: Cardiac silhouette is magnified by projection but does appear mildly enlarged. No consolidation or pl eural fluid is seen. Perihilar interstitial and patchy parenchymal densities seen on the prior study are no longer seen. There is mild prominence of the perihilar markings, but this is likely rela bean to vascular structures. No other interval change. IMPRESSION: 1. Cardiomegaly. 2. No acute cardiopulmonary process.
--- NOTE | 2020-02-23 11:56 | CT ---
Exam: Head CT without contrast HISTORY: Altered mental status. Patient is not driving appropriately. COMPARISON: none FINDINGS: Hemorrhage: No intraparenchymal hemorrhage or extra-axial hematoma. Brain parenchyma: Cortical boateng-white matter differentiation is preserved. No mass effect or midline shift. Basilar cisterns are patent.There appear to go white matter hypodensities due to chronic small vessel ischemic change Ventricular system: Ventricles and sulci are patent and symmetric. Calvarium: Intact. Sinuses and mastoid air cells: Mild maxillary sinus mucosal disease. IMPRESSION: No acute intracranial process.
[2020-02-23 11:59] LABS: #Lymphocytes 0.9 thou/uL (1.20-3.40); #Monocytes 0.4 thou/uL (0.11-0.59); #Neutrophils 5.9 thou/uL (1.40-6.50); %Basophils 0.2 % (0.0-1.0); %Eosinophils 0.1 % (0.0-10.0); %Lymphocytes 12.1 % (21.0-51.0); %Monocytes 5.8 % (0.0-10.0); %Neutrophils 81.9 % (42.0-75.0); Mean Corpuscular Hemoglobin 30.5 pg (27.0-31.0); Mean Corpuscular Volume 92.5 fL (78.0-98.0); Mean Platelet Volume 8.5 fL (7.4-10.4); Platelet Count 255 thou/uL (130-400); RBC Distribution Width 12.5 % (11.5-14.5); Red Blood Cell (RBC) Count 2.96 mill/uL (4.70-6.10); White Blood Cell (WBC) Count 7.2 thou/uL (4.8-10.8)
[2020-02-23] MEDS ORDERED: Acetaminophen 500 MG TAB ONE ×2 (12:01→12:16)
[2020-02-23 12:22] LABS: ALT (SGPT) 13 U/L (8-55); AST (SGOT) 21 U/L (5-34); Albumin 3.2 g/dL (3.5-5.0); Alkaline Phosphatase 51 U/L (40-110); Anion Gap 20 mmol/L (10-20); BUN (Urea Nitrogen) 83 mg/dL (8.4-25.7); Bilirubin, Total 0.7 mg/dL (0.2-1.2); Calc. Creatinine Clearance 0 mL/min (70-130); Carbon Dioxide 14 mmol/L (22-29); Chloride 102 mmol/L (98-107); Globulin 3.8 g/dL (2.4-3.5); Glucose 80 mg/dL (70-105); Potassium 3.8 mmol/L (3.5-5.1); Sodium 132 mmol/L (136-145)
[2020-02-23 13:05] LABS: SARS-CoV-2 NAA Rapid Test DETECTED (NotDetected)
--- NOTE | 2020-02-23 14:03 | PDOC.HHP ---
Hospitalist HPI - History of Present Illness confusion History of Present Illness: Patient is a 60 year old male with a PMH of HTN, type II diabetes mellitus, CAD. She presents to the ER brought in by his who was concerned about patient's driving. She states that patient was driving erratically and was slightly confused. Upon arrival in the ER, he was found to have a fever of 103 degrees. Patient states he has been lethargic over the past few days. He has been having chills and non-productive cough. Associated symptoms include malaise, poor appetite and PO intake. He denies any nausea, vomiting or diarrhea. During my encounter, patient was slow to respond to questions, was not elaborating on his answers, although he answered appropriately. ED Course: He arrived slightly lethargic, slow to answer questions but did so appropriately Multiple fever spikes Tested positive for COVID 19 CXR without infiltrates He is on room air Additional labs showed acute renal failure Hospitalist ROS - Review of Systems Constitutional: reports: fever, weakness, malaise - Exam General - other findings: Somnolent Eye: PERRL ENT: normocephalic atraumatic Gastrointestinal: soft, non-tender, non-distended Extremities: no cyanosis, no clubbing, no edema Musculoskeletal: generalized weakness Psychiatric: flat affect Hospitalist Results - Labs Result Diagrams: 02/23/20 11:34 02/23/20 11:34 Lab results: WBC 7.2 thou/uL (4.8-10.8) 02/23/20 11:34 Hgb 9.0 g/dL (14.0-18.0) L 02/23/20 11:34 Hct 27.3 % (42.0-52.0) L 02/23/20 11:34 MCV 92.5 fL (78.0-98.0) 02/23/20 11:34 Plt Count 255 thou/uL (130-400) 02/23/20 11:34 Neutrophils % 81.9 % (42.0-75.0) H 02/23/20 11:34 Sodium 132 mmol/L (136-145) L 02/23/20 11:34 Potassium 3.8 mmol/L (3.5-5.1) 02/23/20 11:34 Chloride 102 mmol/L (98-107) 02/23/20 11:34 Carbon Dioxide 14 mmol/L (22-29) L 02/23/20 11:34 BUN 83 mg/dL (8.4-25.7) H 02/23/20 11:34 Creatinine 12.73 mg/dL (0.7-1.3) H 02/23/20 11:34 Glucose 80 mg/dL (70-105) 02/23/20 11:34 Lactic Acid 1.7 mmol/L (0.5-2.2) 02/23/20 11:44 Calcium 8.0 mg/dL (7.8-10.44) 02/23/20 11:34 Total Bilirubin 0.7 mg/dL (0.2-1.2) 02/23/20 11:34 AST 21 U/L (5-34) 02/23/20 11:34 ALT 13 U/L (8-55) 02/23/20 11:34 Alkaline Phosphatase 51 U/L (40-110) 02/23/20 11:34 CK-MB (CK-2) 4.0 ng/mL (0-6.6) 02/23/20 11:34 Troponin I 0.274 ng/mL (< 0.028) H 02/23/20 11:34 B-Natriuretic Peptide 1615.0 pg/mL (0-100) H 02/23/20 11:34 Serum Total Protein 7.0 g/dL (6.0-8.3) 02/23/20 11:34 Albumin 3.2 g/dL (3.5-5.0) L 02/23/20 11:34 Hospitalist H&P A/P - Problem (1) COVID-19 Code(s): U07.1 - COVID-19 Status: Acute (2) Nephrotic range proteinuria Code(s): R80.9 - PROTEINURIA, UNSPECIFIED Status: Acute (3) CKD (chronic kidney disease) stage 3, GFR 30-59 ml/min Code(s): N18.3 - CHRONIC KIDNEY DISEASE, STAGE 3 (MODERATE) * DO NOT USE * Status: Chronic (4) Diabetes type 2, controlled Code(s): E11.9 - TYPE 2 DIABETES MELLITUS WITHOUT COMPLICATIONS Status: Chronic (5) Diabetic nephropathy Status: Chronic (6) Dyslipidemia Code(s): E78.5 - HYPERLIPIDEMIA, UNSPECIFIED Status: Chronic (7) Hypertension Code(s): I10 - ESSENTIAL (PRIMARY) HYPERTENSION Status: Chronic (8) Obesity (BMI 30-39.9) Code(s): E66.9 - OBESITY, UNSPECIFIED Status: Chronic - Plan Plan: Assessment Patient is a 60 year old male with a PMH of HTN, Type II diabetes mellitus with nephropathy, CKD stage III who presents with acute encephalopathy, which is most likely metabolic due to uremic encephalopathy and ongoing sepsis secondary to COVID 19. He is saturating well on room air. He received 2 L of IVF in the ER. He also has a mild troponin elevation, which is most likely from demand ischemia. Last echo FROM 2019 showed preserved LVEF, LVH and moderate TR. Metabolic encephalopathy COVID 19 Acute on chronic CKD stage III Nephrotic range proteinuria - hx of Metabolic acidosis Elevated troponins Type III diabetes mellitus PLAN: Admit with telemetry Remdesivir is contraindicated due to CHARLES I will hold off convalescent plasma due to lack of hypoxia and infiltrates on CXR Start patient on dexamethasone due to multiple End-organ damage I will also start him on Vitamins B1, C, D along with zinc Heparin subc for DVT ppx Renal US and renal consult Check urine Prot/Cr given history of nephrotic range proteinuria Strict intake and output Repeat BMP in the morning I will start the patient on ASA and atorvastatin given hx of CAD Trend troponin and EKG. Check for lipid panel and HbA1c Hold off long acting insulin since patient is already euglycemic
[2020-02-23] MEDS ORDERED: Aspirin 325 MG TAB PO SCH (14:15)
[2020-02-23] MEDS ORDERED: Ascorbic Acid 500 mg Chewable Tablet PO SCH (14:30)
[2020-02-23] MEDS ORDERED: Thiamine 100 MG TAB PO SCH (14:30)
[2020-02-23] MEDS ORDERED: Cholecalciferol (Vitamin D3) 400 UNITS TAB PO SCH (14:30)
[2020-02-23] MEDS ORDERED: Heparin 5,000 UNITS/ML VIAL SC SCH (15:00)
[2020-02-23] MEDS: Dexamethasone 4 mg/ml Vial SLOW IVP SCH (15:46)
[2020-02-23 16:51] LABS: Hemoglobin A1c 9.5 % (4.0-6.0)
[2020-02-23 17:02] LABS: Albumin 3.1 g/dL (3.5-5.0); Anion Gap 18 mmol/L (10-20); BUN (Urea Nitrogen) 87 mg/dL (8.4-25.7); BUN/Creatinine Ratio 7.01; Calc. Creatinine Clearance 9 mL/min (70-130); Calcium 7.6 mg/dL (7.8-10.44); Carbon Dioxide 16 mmol/L (22-29); Cardiac Risk 3.9 (Less than 4.5); Chloride 103 mmol/L (98-107); Cholesterol 109 mg/dl (< 200 Desired); HDL Cholesterol 28 mg/dL (>60 Neg Risk); LDL Cholesterol, Calculated 61 mg/dL; Potassium 3.6 mmol/L (3.5-5.1); Sodium 133 mmol/L (136-145); Triglycerides 98 mg/dL (Less than 150)
[2020-02-23 17:07] LABS: Troponin I 0.261 ng/mL (< 0.028)
--- NOTE | 2020-02-23 17:14 | ULT ---
Renal ultrasound: 02/23/2020 COMPARISON:None available HISTORY:Acute on chronic kidney disease TECHNIQUE: Multiplanar grayscale sonographic imaging of thekidneys and urinary bladder provided FINDINGS:Right kidney measures 10.2 x 5.0 x 6.3 cm and left kidney measures 11.0 x 5.8 x 2.9 cm. Urin alena bladder volume estimated at 20 cc. No renal mass, hydronephrosis, or renal stone noted on either side. IMPRESSION: No acute findings.
[2020-02-23 17:20] LABS: Glucose 43 mg/dL (70-105)
[2020-02-23] MEDS ORDERED: FLU VACC QS2020-21(6MOS UP)/PF 60 MCG/0.5 ML SYRINGE IM ONE (18:00)
[2020-02-23 19:34] LABS: Troponin I 0.227 ng/mL (< 0.028)
--- NOTE | 2020-02-23 21:05 | CON ---
DATE OF CONSULTATION: REQUESTING PHYSICIAN: Prince Marko Hensley MD REASON FOR CONSULTATION: Acute on chronic kidney disease. IMPRESSION: 1. Acute on chronic kidney disease. This is likely progression of baseline chronic kidney disease versus additional effect of COVID nephropathy. 2. Metabolic acidosis. 3. Mild hyponatremia. 4. Anemia likely anemia of chronic kidney disease. 5. Possible diabetic nephropathy. HISTORY OF PRESENT ILLNESS: A 60-year-old gentleman with chronic kidney disease stage 3, baseline creatinine is years ago. He was brought into the hospital because of mental status change and noted on presentation to be very afebrile with temperature of up to 103 and got diagnosed with COVID. The patient noted with a creatinine of 12.41 on presentation with a bicarb of 16. As a result of these findings, decision has been taken to involve Renal in the management of this case. The patient denies use of any known nephrotoxic agents recently. PAST MEDICAL HISTORY: Significant for chronic kidney disease stage 3, diabetes mellitus type 2, hypertension, coronary artery disease. MEDICATIONS: Reviewed as documented on [employer]. FAMILY HISTORY: No family history of kidney disease. SOCIAL HISTORY: Denies alcohol, tobacco, or illicit drug use. REVIEW OF SYSTEMS: As documented in the body of history. Otherwise, other systems not significantly related to present illness. PHYSICAL EXAMINATION: GENERAL: The patient was found not to be in any significant physical distress. Mild respiratory distress noted. VITAL SIGNS: With the following vital signs; afebrile, temperature 98.3, pulse 63, respiratory rate of 22, O2 saturation of 98%, blood pressure 148/67. HEENT: Unremarkable. CARDIOVASCULAR: First and second heart sounds were heard. RESPIRATORY: Clear to auscultation. DIGESTIVE: Revealed a benign abdomen. EXTREMITIES: No peripheral edema. SKIN: No new gross rash. LYMPHATICS: No peripheral lymphadenopathy. In summary, a 60-year-old gentleman with baseline chronic kidney disease stage 3, now presenting with stage 5 chronic kidney disease versus acute on chronic kidney disease compounded by COVID nephropathy. Thank you for this consultation. We will follow with you. Job ID: [id number]
[2020-02-23] MEDS: Atorvastatin Calcium 40 MG TAB PO SCH (22:03)
[2020-02-23] MEDS: Sodium Bicarbonate Tab 325 MG TAB PO SCH (22:04)
[2020-02-24 05:39] LABS: Bilirubin Negative (Negative); Blood, Urine 1+ (Negative); Clarity Turbid (Clear); Glucose, Urine (Dipstick) 300 mg/dL (Negative); Ketone, Urine Negative (Negative); Leukocyte Negative Leu/uL (Negative); Mucous/LPF Rare LPF (<2+); Nitrite Negative (Negative); Protein, Urine (Dipstick) 600 mg/dL (Neg-Trace); RBC/HPF 0-3 HPF (0-3); Specific Gravity, Urine 1.016 (1.002-1.036); Squamous Epithelial 0-3 HPF (0-3); Urobilinogen Normal mg/dL (Less than 2)
[2020-02-24 05:40] LABS: Bacteria/HPF 1+ HPF (None Seen); Urine Culture Reflex Yes Yes
[2020-02-24] MEDS ORDERED: Dextrose 50% Abboject 50 ML SYRINGE SLOW IVP PRN ×2 (05:45→08:40)
[2020-02-24] MEDS ORDERED: HumaLOG 300 UNITS/3 ML VIAL SC PRN (05:45)
[2020-02-24] MEDS ORDERED: Dextrose 5% in Water 1,000 ML IV PRN ×2 (05:45→08:40)
[2020-02-24] MEDS ORDERED: HumaLOG 300 UNITS/3 ML VIAL SC SCH (06:00)
[2020-02-24 06:02] LABS: Creatinine, Urine 165.83 mg/dL (63-166)
[2020-02-24 06:09] LABS: Albumin 3.3 g/dL (3.5-5.0); Anion Gap 25 mmol/L (10-20); BUN (Urea Nitrogen) 97 mg/dL (8.4-25.7); BUN/Creatinine Ratio 7.42; Calc. Creatinine Clearance 9 mL/min (70-130); Calcium 7.8 mg/dL (7.8-10.44); Carbon Dioxide 11 mmol/L (22-29); Chloride 99 mmol/L (98-107); Glucose 384 mg/dL (70-105); Iron 17 ug/dL (65-175); Iron Binding Capacity, Total 194 mcg/dL (261-462); Phosphorus 6.3 mg/dL (2.3-4.7); Potassium 4.6 mmol/L (3.5-5.1); Sodium 130 mmol/L (136-145)
[2020-02-24 06:11] LABS: Ferritin 297.45 ng/mL (22-322)
[2020-02-24 06:25] LABS: HBSAB Concentration Less than 8.00 mIU/mL; HBSAg Index 0.15 S/CO (0-0.99); Hep B Core Total Ab Non-Reactive (NonReactive); Hep B Core Total Index 0.06 S/CO (0-0.79); Hep B Surf AB Non-Reactive (NonReactive); Hep B Surf Ag Non-Reactive S/CO (NonReactive); Hep C IgG Ab Non-Reactive (NonReactive)
[2020-02-24] MEDS ORDERED: Sodium Ferric Gluconate 62.5 MG/5 ML AMP SLOW IVP SCH (09:00)
[2020-02-24] MEDS ORDERED: Lisinopril 20 MG TAB PO SCH (09:00)
[2020-02-24] MEDS: Zinc Sulfate 220 MG CAP PO SCH (09:06)
[2020-02-24] MEDS: Carvedilol 25 MG TAB PO SCH ×2 (09:06→21:23)
[2020-02-24] MEDS: Amlodipine 10 MG TAB PO SCH (09:07)
[2020-02-24] MEDS: Cholecalciferol (Vitamin D3) 400 UNITS TAB PO SCH (09:07)
[2020-02-24] MEDS: Thiamine 100 MG TAB PO SCH (09:07)
[2020-02-24] MEDS: Aspirin 81 mg Enteric Coated Tablet PO SCH (09:07)
[2020-02-24] MEDS: Sodium Bicarbonate Tab 325 MG TAB PO SCH ×2 (09:08→21:23)
[2020-02-24] MEDS: Ascorbic Acid 500 mg Chewable Tablet PO SCH (09:08)
[2020-02-24] MEDS: hydrALAZINE 25 MG TAB PO SCH ×2 (09:08→21:23)
[2020-02-24] MEDS ORDERED: Epoetin (ESRD) 20,000 UNITS/ML SC SCH (09:15)
[2020-02-24] MEDS: Enoxaparin Sodium 30 MG/0.3 ML SYRINGE SC SCH (09:24)
[2020-02-24] MEDS ORDERED: Iron, Sodium Ferric Gluconate 125 MG in Sodium Chloride 0.9% 100 ML IVPB SCH (10:00)
[2020-02-24 10:02] LABS: Troponin I 0.119 ng/mL (< 0.028)
[2020-02-24] MEDS: Calcium Carbonate 500 MG ChewTAB PO SCH ×2 (12:14→17:17)
[2020-02-24] MEDS: HumaLOG 300 UNITS/3 ML VIAL SC PRN (12:14)
[2020-02-24] MEDS: EPOETIN ALFA-EPBX (ESRD) 10,000 UNIT/ML VIAL SC SCH (12:14)
--- NOTE | 2020-02-24 14:03 | PDOC.HOSPP ---
- Subjective Encounter Date: 02/24/20 Subjective: Patient is doing well. No acute events overnight. He is on room air and euvolemic - Objective Vital Signs & Weight: Vital Signs (12 hours) Temp Pulse Resp BP Pulse Ox 02/24/20 11:14 97.7 F 74 16 162/77 H 100 02/24/20 09:15 98.3 F 73 20 200/91 H 97 02/24/20 03:45 97.3 F L 68 18 184/89 H 99 Weight Weight 229 lb 4.8 oz I&O: 02/23/20 02/24/20 02/25/20 06:59 06:59 06:59 Intake Total 480 Output Total 400 Balance 80 Result Diagrams: 02/23/20 11:34 02/24/20 05:02 Additional Labs: Accuchecks 02/24/20 02/24/20 02/23/20 11:14 05:29 20:37 POC Glucose 349 H 350 H 250 H 02/23/20 18:05 POC Glucose 88 Hospitalist ROS - Medication Medications: Active Medications Generic Name Dose Route Start Last Admin Trade Name Freq PRN Reason Stop Dose Admin Amlodipine Besylate 10 mg 02/24/20 09:00 02/24/20 09:07 Amlodipine 10 Mg Tab PO 10 mg DAILY ELIAS Administration Ascorbic Acid 500 mg 02/24/20 09:00 02/24/20 09:08 Ascorbic Acid 500 Mg Chewable Tablet PO 500 mg DAILY ELIAS Administration Aspirin 81 mg 02/24/20 09:00 02/24/20 09:07 Aspirin 81 Mg Enteric Coated Tablet PO 81 mg DAILY ELIAS Administration Atorvastatin Calcium 40 mg 02/23/20 21:00 02/23/20 22:03 Atorvastatin Calcium 40 Mg Tab PO 40 mg HS ELIAS Administration Calcium Carbonate 1,000 mg 02/24/20 12:00 02/24/20 12:14 Calcium Carbonate 500 Mg Chewtab PO 1,000 mg TID-WM ELIAS Administration Carvedilol 25 mg 02/24/20 09:00 02/24/20 09:06 Carvedilol 25 Mg Tab PO 25 mg BID ELIAS Administration Cholecalciferol 400 units 02/24/20 09:00 02/24/20 09:07 Cholecalciferol (Vitamin D3) 400 Units Tab PO 400 units DAILY ELIAS Administration Dexamethasone 8 mg 02/23/20 15:00 02/23/20 15:46 Dexamethasone 4 Mg/Ml Vial SLOW IVP 8 mg 1500 ELIAS Administration Enoxaparin Sodium 30 mg 02/24/20 09:00 02/24/20 09:24 Enoxaparin Sodium 30 Mg/0.3 Ml Syringe SC 30 mg 0900 ELIAS Administration Epoetin Nasim-epbx 10,000 unit 02/24/20 12:00 02/24/20 12:14 Epoetin Nasim-Epbx (Esrd) 10,000 Unit/Ml Vial SC 10,000 unit Q7D ELIAS Administration Hydralazine HCl 50 mg 02/24/20 09:00 02/24/20 09:08 Hydralazine 25 Mg Tab PO 50 mg BID ELIAS Administration Insulin Human Lispro 0 units 02/24/20 08:40 02/24/20 12:14 Humalog 300 Units/3 Ml Vial SC 11 unit .AGGRESSIVE SLIDING PRN Administration Aggressive Correctional Scale Isosorbide Mononitrate 30 mg 02/24/20 09:00 02/24/20 09:07 Isosorbide Mononitrate Er 30 Mg Tab PO 30 mg DAILY ELIAS Administration Pantoprazole Sodium 40 mg 02/24/20 09:00 02/24/20 09:08 Pantoprazole 40 Mg Tab PO 40 mg DAILY ELIAS Administration Sodium Bicarbonate 650 mg 02/23/20 21:00 02/24/20 09:08 Sodium Bicarbonate Tab 325 Mg Tab PO 650 mg BID ELIAS Administration Thiamine HCl 100 mg 02/24/20 09:00 02/24/20 09:07 Thiamine 100 Mg Tab PO 100 mg DAILY ELIAS Administration Zinc Sulfate 220 mg 02/24/20 09:00 02/24/20 09:06 Zinc Sulfate 220 Mg Cap PO 220 mg DAILY ELIAS Administration - Exam General Appearance: NAD, awake alert Eye - other findings: bilateral periorbital edema ENT: normocephalic atraumatic Neck: supple Heart: RRR, no murmur, no gallops Respiratory: CTAB, no wheezes, no rales, no ronchi Extremities: no cyanosis, no clubbing, no edema Neurological: cranial nerve grossly intact Musculoskeletal: normal tone, normal strength Psychiatric: normal affect, normal behavior Hosp A/P (1) COVID-19 Code(s): U07.1 - COVID-19 Status: Acute (2) Nephrotic range proteinuria Code(s): R80.9 - PROTEINURIA, UNSPECIFIED Status: Acute (3) CKD (chronic kidney disease) stage 3, GFR 30-59 ml/min Code(s): N18.3 - CHRONIC KIDNEY DISEASE, STAGE 3 (MODERATE) * DO NOT USE * Status: Chronic (4) Diabetes type 2, controlled Code(s): E11.9 - TYPE 2 DIABETES MELLITUS WITHOUT COMPLICATIONS Status: Chronic (5) Diabetic nephropathy Status: Chronic (6) Dyslipidemia Code(s): E78.5 - HYPERLIPIDEMIA, UNSPECIFIED Status: Chronic (7) Hypertension Code(s): I10 - ESSENTIAL (PRIMARY) HYPERTENSION Status: Chronic (8) Obesity (BMI 30-39.9) Code(s): E66.9 - OBESITY, UNSPECIFIED Status: Chronic - Plan Assessment Patient is a 60 year old male with a PMH of HTN, Type II diabetes mellitus with nephropathy, CKD stage III who presented with acute encephalopathy and was found to have acute on chronic CKD stage III along with COVID 19 without infiltrates on CXR. His mental status is back to baseline, no requirement for supplemental O2. No remdesivir or plasma given. However, his renal failure continues to persist. Urine work up suggestive of nephrotic range proteinuria. No structural abnormalities on renal US. Nephrology has been consulted. Other issues encountered include mild troponin rise. His troponin is now trending down. Patient did not report chest pain. Metabolic encephalopathy COVID 19 Acute on chronic CKD stage III Nephrotic range proteinuria - hx of Metabolic acidosis Elevated troponins Type III diabetes mellitus - A1c 8.5 Hyperlipidemia - LDL 61 PLAN: Follow up Nephrology recommendations Will defer decision to biopsy to Nephrology Continue dexamethasone along with vitamins B1, C, D along with zinc Heparin subc for DVT ppx Aggressive sliding scale insulin for hyperglycemia Start NPH 10 units while on dexamethasone Strict intake and output Continue ASA and atorvastatin given hx of CAD
[2020-02-24] MEDS: Dexamethasone 4 mg/ml Vial SLOW IVP SCH (15:11)
[2020-02-24] MEDS ORDERED: NPH, Human Insulin Isophane 300 UNIT/3 ML VIAL SC SCH (17:00)
--- NOTE | 2020-02-24 18:24 | PRG ---
DATE OF SERVICE: 02/24/2020 OBJECTIVE: VITAL SIGNS: The patient noted with the following vital signs: Afebrile, temperature 97.7, pulse 73, respiratory rate of 20, O2 saturation of 100%, blood pressure 161/72. HEENT: Unremarkable. CARDIOVASCULAR SYSTEM: First and second heart sounds were heard. RESPIRATORY SYSTEM: Clear to auscultation. DIGESTIVE SYSTEM: Revealed a benign abdomen. EXTREMITIES: Shows minimal peripheral edema. SKIN: No new gross rash. LABORATORY INVESTIGATIONS: Significant for creatinine has gone up to 13.08, BUN of 97, bicarb of 11, sodium of 130, phosphorus is 0.3, iron saturation of 9 with ferritin of 297, PTH 575. IMPRESSION: 1. Advanced kidney disease, likely stage 5. 2. Hyperphosphatemia with secondary hyperparathyroidism. 3. Anemia of chronic kidney disease. 4. COVID pneumonitis. 5. Mild hyponatremia. 6. Severe metabolic acidosis. PLAN: 1. Iron infusion. 2. Erythropoiesis stimulating agent. 3. Continue bicarb supplementation. 4. Start this patient on Tums. 5. Start the calcitriol. 6. Hemodialysis is imminent. We will re-evaluate this patient tomorrow for possible initiation of hemodialysis. 7. Further management will be dependent on the clinical course. Job ID: [id number]
[2020-02-24] MEDS: Atorvastatin Calcium 40 MG TAB PO SCH (21:23)
[2020-02-25] MEDS: HumaLOG 300 UNITS/3 ML VIAL SC PRN ×3 (00:16→12:04)
[2020-02-25 05:32] LABS: Albumin 3.1 g/dL (3.5-5.0); Anion Gap 23 mmol/L (10-20); BUN (Urea Nitrogen) 117 mg/dL (8.4-25.7); BUN/Creatinine Ratio 8.34; Calc. Creatinine Clearance 8 mL/min (70-130); Calcium 7.7 mg/dL (7.8-10.44); Carbon Dioxide 13 mmol/L (22-29); Chloride 97 mmol/L (98-107); Glucose 315 mg/dL (70-105); Phosphorus 5.3 mg/dL (2.3-4.7); Potassium 4.2 mmol/L (3.5-5.1); Sodium 129 mmol/L (136-145)
[2020-02-25] MEDS: Iron, Sodium Ferric Gluconate 125 MG in Sodium Chloride 0.9% 100 ML IVPB SCH (08:57)
[2020-02-25] MEDS: Enoxaparin Sodium 30 MG/0.3 ML SYRINGE SC SCH (08:58)
[2020-02-25] MEDS: Calcium Carbonate 500 MG ChewTAB PO SCH ×3 (08:58→17:37)
[2020-02-25] MEDS: Sodium Bicarbonate Tab 325 MG TAB PO SCH ×2 (08:59→20:13)
[2020-02-25] MEDS: Calcitriol 0.25 MCG CAP PO SCH (08:59)
[2020-02-25] MEDS: Aspirin 81 mg Enteric Coated Tablet PO SCH (08:59)
[2020-02-25] MEDS: hydrALAZINE 25 MG TAB PO SCH ×2 (08:59→20:14)
[2020-02-25] MEDS: Zinc Sulfate 220 MG CAP PO SCH (08:59)
[2020-02-25] MEDS: Thiamine 100 MG TAB PO SCH (08:59)
[2020-02-25] MEDS: Ascorbic Acid 500 mg Chewable Tablet PO SCH (08:59)
[2020-02-25] MEDS: Cholecalciferol (Vitamin D3) 400 UNITS TAB PO SCH (08:59)
[2020-02-25] MEDS: Carvedilol 25 MG TAB PO SCH ×2 (09:00→20:14)
[2020-02-25] MEDS: Amlodipine 10 MG TAB PO SCH (09:00)
[2020-02-25] MEDS ORDERED: IRON SUCROSE COMPLEX 100 MG/5 ML SLOW IVP SCH (09:00)
[2020-02-25] MEDS: NPH, Human Insulin Isophane 300 UNIT/3 ML VIAL SC SCH ×2 (09:05→20:15)
[2020-02-25] MEDS: Ferrous Sulfate 325 MG TAB PO SCH (09:40)
[2020-02-25] MEDS: Dexamethasone 4 mg/ml Vial SLOW IVP SCH (15:05)
--- NOTE | 2020-02-25 16:01 | PDOC.HOSPP ---
- Subjective Encounter Date: 02/25/20 Subjective: No acute events overnight. Patient denies any nausea, or vomiting. No function continues to worsen. Hemodialysis pending - Objective Vital Signs & Weight: Vital Signs (12 hours) Temp Pulse Resp BP Pulse Ox 02/25/20 11:15 98.7 F 71 22 H 124/65 100 02/25/20 08:58 100 02/25/20 08:00 98.3 F 73 18 154/73 H 100 Weight Weight 231 lb 14.4 oz I&O: 02/24/20 02/25/20 02/26/20 06:59 06:59 06:59 Intake Total 480 1760 Output Total 400 Balance 80 1760 Result Diagrams: 02/23/20 11:34 02/25/20 04:55 Additional Labs: Accuchecks 02/25/20 02/25/20 02/25/20 11:10 05:30 00:10 POC Glucose 310 H 284 H 309 H 02/24/20 02/24/20 20:22 16:44 POC Glucose 316 H 343 H Hospitalist ROS - Medication Medications: Active Medications Generic Name Dose Route Start Last Admin Trade Name Freq PRN Reason Stop Dose Admin Amlodipine Besylate 10 mg 02/24/20 09:00 02/25/20 09:00 Amlodipine 10 Mg Tab PO 10 mg DAILY ELIAS Administration Ascorbic Acid 500 mg 02/24/20 09:00 02/25/20 08:59 Ascorbic Acid 500 Mg Chewable Tablet PO 500 mg DAILY ELIAS Administration Aspirin 81 mg 02/24/20 09:00 02/25/20 08:59 Aspirin 81 Mg Enteric Coated Tablet PO 81 mg DAILY ELIAS Administration Atorvastatin Calcium 40 mg 02/23/20 21:00 02/24/20 21:23 Atorvastatin Calcium 40 Mg Tab PO 40 mg HS ELIAS Administration Calcitriol 0.25 mcg 02/25/20 09:00 02/25/20 08:59 Calcitriol 0.25 Mcg Cap PO 0.25 mcg DAILY ELIAS Administration Calcium Carbonate 1,000 mg 02/24/20 12:00 02/25/20 11:57 Calcium Carbonate 500 Mg Chewtab PO 1,000 mg TID- ELIAS Administration Carvedilol 25 mg 02/24/20 09:00 02/25/20 09:00 Carvedilol 25 Mg Tab PO 25 mg BID ELIAS Administration Cholecalciferol 400 units 02/24/20 09:00 02/25/20 08:59 Cholecalciferol (Vitamin D3) 400 Units Tab PO 400 units DAILY ELIAS Administration Dexamethasone 8 mg 02/23/20 15:00 02/25/20 15:05 Dexamethasone 4 Mg/Ml Vial SLOW IVP 8 mg 1500 ELIAS Administration Enoxaparin Sodium 30 mg 02/24/20 09:00 02/25/20 08:58 Enoxaparin Sodium 30 Mg/0.3 Ml Syringe SC 30 mg 0900 ELIAS Administration Epoetin Nasim-epbx 10,000 unit 02/24/20 12:00 02/24/20 12:14 Epoetin Nasim-Epbx (Esrd) 10,000 Unit/Ml Vial SC 10,000 unit Q7D [facility] Administration Ferrous Sulfate 325 mg 02/25/20 08:00 02/25/20 09:40 Ferrous Sulfate 325 Mg Tab PO Not Given QA[facility] Hydralazine HCl 50 mg 02/24/20 09:00 02/25/20 08:59 Hydralazine 25 Mg Tab PO 50 mg BID ELIAS Administration Ferric Sodium Gluconate 110 mls @ 110 mls/hr 02/25/20 09:00 02/25/20 08:57 Complex 125 mg/ Sodium IVPB 110 mls Chloride DAILY ELIAS Administration Insulin Human Lispro 0 units 02/24/20 08:40 02/25/20 12:04 Humalog 300 Units/3 Ml Vial SC 11 unit .AGGRESSIVE SLIDING PRN Administration Aggressive Correctional Scale Insulin Human Lispro 0 units 02/24/20 23:11 02/25/20 00:16 Humalog 300 Units/3 Ml Vial SC 4 unit .BEDTIME SLIDING SC PRN Administration Bedtime Correctional Scale Insulin Human NPH 20 unit 02/25/20 09:00 02/25/20 09:05 Nph, Human Insulin Isophane 300 Unit/3 Ml Vial SC 20 unit BID ELIAS Administration Isosorbide Mononitrate 30 mg 02/24/20 09:00 02/25/20 08:58 Isosorbide Mononitrate Er 30 Mg Tab PO 30 mg DAILY ELIAS Administration Pantoprazole Sodium 40 mg 02/24/20 09:00 02/25/20 09:00 Pantoprazole 40 Mg Tab PO 40 mg DAILY ELIAS Administration Sodium Bicarbonate 650 mg 02/23/20 21:00 01/15/21 08:59 Sodium Bicarbonate Tab 325 Mg Tab PO 650 mg BID ELIAS Administration Sodium Chloride 10 ml 02/24/20 21:00 02/25/20 08:58 Flush - Normal Saline 10 Ml Syringe IVF 10 ml Q12HR ELIAS Administration Thiamine HCl 100 mg 02/24/20 09:00 02/25/20 08:59 Thiamine 100 Mg Tab PO 100 mg DAILY ELIAS Administration Zinc Sulfate 220 mg 02/24/20 09:00 02/25/20 08:59 Zinc Sulfate 220 Mg Cap PO 220 mg DAILY ELIAS Administration - Exam General Appearance: NAD, awake alert Eye - other findings: Lateral periorbital edema ENT: normocephalic atraumatic Neck: supple, symmetric Heart: RRR, no murmur, no gallops, no rubs, normal peripheral pulses Respiratory: CTAB, no wheezes, no rales, no ronchi Gastrointestinal: soft, non-tender, non-distended, normal bowel sounds Extremities: no cyanosis, no clubbing, no edema Neurological: cranial nerve grossly intact Psychiatric: normal affect, normal behavior Hosp A/P (1) COVID-19 Code(s): U07.1 - COVID-19 Status: Acute (2) Nephrotic range proteinuria Code(s): R80.9 - PROTEINURIA, UNSPECIFIED Status: Acute (3) CKD (chronic kidney disease) stage 3, GFR 30-59 ml/min Code(s): N18.3 - CHRONIC KIDNEY DISEASE, STAGE 3 (MODERATE) * DO NOT USE * Status: Chronic (4) Diabetes type 2, controlled Code(s): E11.9 - TYPE 2 DIABETES MELLITUS WITHOUT COMPLICATIONS Status: Chronic (5) Diabetic nephropathy Status: Chronic (6) Dyslipidemia Code(s): E78.5 - HYPERLIPIDEMIA, UNSPECIFIED Status: Chronic (7) Hypertension Code(s): I10 - ESSENTIAL (PRIMARY) HYPERTENSION Status: Chronic (8) Obesity (BMI 30-39.9) Code(s): E66.9 - OBESITY, UNSPECIFIED Status: Chronic - Plan Assessment Patient is a 60 year old male with a PMH of HTN, Type II diabetes mellitus with nephropathy, CKD stage III who presented with acute encephalopathy and was found to have acute on chronic CKD stage III along with COVID 19 without infiltrates on CXR. His mental status is back to baseline, no requirement for supplemental O2. No remdesivir or plasma given. However, his renal failure continues to persist. Urine work up suggestive of nephrotic range proteinuria. No structural abnormalities on renal US. Infectious work-up negative so far except COVID-19. Nephrology is planning to start hemodialysis. Metabolic encephalopathy COVID 19 Acute on chronic CKD stage III Nephrotic range proteinuria - hx of Metabolic acidosis Elevated troponins Type III diabetes mellitus - A1c 8.5 Hyperlipidemia - LDL 61 PLAN: Follow up Nephrology recommendations Continue sodium bicarb, ferrous sulfate and EPO as per nephrology recommendation Continue dexamethasone along with vitamins B1, C, D along with zinc Heparin subc for DVT ppx Aggressive sliding scale insulin for hyperglycemia Increase NPH to 20 units twice daily since patient is on steroids Strict intake and output Continue ASA and atorvastatin given hx of CAD
--- NOTE | 2020-02-25 16:48 | PRG ---
DATE OF SERVICE: 02/25/2020 OBJECTIVE: VITAL SIGNS: The patient noted with the following vital signs; afebrile, temperature 98.7, pulse 71, respiratory rate of 22, O2 saturation of 100%, blood pressure 124/65. HEENT: Unremarkable. CARDIOVASCULAR SYSTEM: First and second heart sounds were heard. RESPIRATORY SYSTEM: Clear to auscultation. DIGESTIVE SYSTEM: Revealed a benign abdomen with positive bowel sounds. EXTREMITIES: No peripheral edema. SKIN: No new gross rash. LYMPHATICS: No peripheral lymphadenopathy. LABORATORY INVESTIGATION: Showed a chemistry with creatinine of 14.03, BUN of 117, bicarb of 13, and sodium of 129. IMPRESSION: 1. Advanced kidney failure. 2. Metabolic acidosis. 3. Hyperphosphatemia with secondary hyperparathyroidism. 4. COVID infection. 5. Hypocalcemia. 6. Diabetic nephropathy. PLAN: 1. The patient to be initiated on dialysis today. Therefore, we will consult surgeon for access placement. 2. The patient likely to require long-term dialysis, and once the patient's COVID infection is improved and the patient is no more in isolation, we will proceed to secure a long-term dialysis access for eventual transition to outpatient dialysis treatment. 3. Further management to be dependent on the clinical course. Meanwhile, we will continue with erythropoiesis stimulating agent. Job ID: [id number]
--- NOTE | 2020-02-25 20:06 | CON ---
DATE OF CONSULTATION: HISTORY OF PRESENT ILLNESS: Francois Altman is a 60-year-old black male, retired local [place] [employer]. He has known that he had chronic kidney disease, having seen a physician two years ago, but none since until this hospitalization. The patient is COVID positive, COVID isolation, and has diabetes, hypertension, and needs dialysis access to initiate dialysis. I have been asked by Dr. John to provide that. Plan is to place a hemodialysis catheter in femoral vein to initiate dialysis, and when he comes out of his COVID isolation, we can obtain ultrasound vein mapping of both arms and place a cuffed tunneled hemodialysis catheter and probably a primary AV fistula for long-term use. ALLERGIES: NONE. MEDICATIONS: At home: 1. Lisinopril. 2. Ferrous sulfate. 3. Hydralazine. 4. Simvastatin. 5. Isosorbide. 6. Insulin. 7. Glyburide. 8. Furosemide. 9. Famotidine. 10. Carvedilol. 11. Aspirin. 12. Amlodipine. 13. . SOCIAL HISTORY: The patient lives in [place]. He describes sedentary activity. He denies any surgical history. PAST MEDICAL HISTORY: Hypertension; diabetes mellitus, type 2; hyperlipidemia; high cholesterol. No history of colonoscopy. No past coronary artery disease known. No interventions necessary. PHYSICAL EXAMINATION: VITAL SIGNS: 5 feet 8 inches, 231 pounds, 35 BMI. 98.7, 71, 124/74. LUNGS: Clear to auscultation with few rhonchi at base. CARDIAC: Regular rate and rhythm. ABDOMEN: Soft, obese, nontender. No hernias. EXTREMITIES: Unremarkable. NEUROLOGICAL: Intact. LABORATORY DATA: White count 7.2, hemoglobin 9. Sodium 129, BUN 117, creatinine 14, GFR 4. Hemoglobin A1c 9.5 on admission. COVID positive on 02/23/2020. Brain CAT scan unremarkable. Noting past history records back as far as 2019, reveals creatinine 2.28. ASSESSMENT AND PLAN: 1. Chronic kidney disease culminating end-stage renal disease. Plan for placement of hemodialysis catheter as he is acidotic with CO2 of 13, BUN 117, creatinine 14. He understands risks and benefits and consents. He has IV in his hand. Fortunately, antecubital areas have not been violated. Once his COVID restrictions are lifted, we will obtain ultrasound vein mapping and plan placement of cuffed tunneled hemodialysis catheter as AV fistula. 2. Diabetes mellitus, type 2, insulin dependent. 3. Hypertension. 4. Elevated cholesterol. Job ID: [id number]
[2020-02-25] MEDS: Atorvastatin Calcium 40 MG TAB PO SCH (20:14)
[2020-02-26 05:42] LABS: Albumin 3.1 g/dL (3.5-5.0)
[2020-02-26 05:43] LABS: Chloride 98 mmol/L (98-107); Potassium 4.2 mmol/L (3.5-5.1); Sodium 129 mmol/L (136-145)
[2020-02-26 05:44] LABS: Calcium 7.8 mg/dL (7.8-10.44)
[2020-02-26 05:45] LABS: Glucose 161 mg/dL (70-105)
[2020-02-26 05:46] LABS: Anion Gap 20 mmol/L (10-20); Carbon Dioxide 15 mmol/L (22-29)
[2020-02-26 05:48] LABS: Calc. Creatinine Clearance 8 mL/min (70-130); Phosphorus 5.4 mg/dL (2.3-4.7)
[2020-02-26 05:49] LABS: Magnesium 2.1 mg/dL (1.6-2.6)
[2020-02-26 06:06] LABS: BUN (Urea Nitrogen) 120 mg/dL (8.4-25.7); BUN/Creatinine Ratio 8.01
--- NOTE | 2020-02-26 07:36 | OP ---
DATE OF PROCEDURE: 02/25/2020 PREOPERATIVE DIAGNOSES: End-stage renal disease, diabetes, hypertension, obesity, COVID illness. POSTOPERATIVE DIAGNOSES: End-stage renal disease, diabetes, hypertension, obesity, COVID illness. PROCEDURE PERFORMED: Right femoral vein Trialysis catheter. ANESTHESIA: 1% Xylocaine. DESCRIPTION OF PROCEDURE: With the patient at bedside in his room, his right groin had been clipped of hair, prepared with ChloraPrep, and draped in routine fashion. Local anesthetic of 1% Xylocaine was infiltrated in the skin and subcutaneous tissue. Trocar catheter cannulated the femoral vein, J-wire threaded, trocar catheter removed. Skin site enlarged sharply. Small and medium size dilators placed in the femoral vein and removed. The distal port of the Trialysis catheter placed with the J-wire into the femoral vein, J-wire removed, catheter secured with 3-0 nylon suture. Sterile dressing applied. Each port aspirated of blood, flushed with heparinized saline solution. The patient tolerated the procedure well. Job ID: [id number]
[2020-02-26] MEDS: Calcium Carbonate 500 MG ChewTAB PO SCH ×3 (08:11→15:52)
[2020-02-26] MEDS: Iron, Sodium Ferric Gluconate 125 MG in Sodium Chloride 0.9% 100 ML IVPB SCH (08:12)
[2020-02-26] MEDS: Cholecalciferol (Vitamin D3) 400 UNITS TAB PO SCH (08:13)
[2020-02-26] MEDS: Ascorbic Acid 500 mg Chewable Tablet PO SCH (08:13)
[2020-02-26] MEDS: Thiamine 100 MG TAB PO SCH (08:13)
[2020-02-26] MEDS: Aspirin 81 mg Enteric Coated Tablet PO SCH (08:13)
[2020-02-26] MEDS: Calcitriol 0.25 MCG CAP PO SCH (08:13)
[2020-02-26] MEDS: Sodium Bicarbonate Tab 325 MG TAB PO SCH ×2 (08:13→23:04)
[2020-02-26] MEDS: Zinc Sulfate 220 MG CAP PO SCH (08:13)
[2020-02-26] MEDS: Amlodipine 10 MG TAB PO SCH ×2 (08:14→15:49)
[2020-02-26] MEDS: Carvedilol 25 MG TAB PO SCH ×2 (08:15→23:04)
[2020-02-26] MEDS: Ferrous Sulfate 325 MG TAB PO SCH (08:15)
[2020-02-26] MEDS: Enoxaparin Sodium 30 MG/0.3 ML SYRINGE SC SCH (08:15)
[2020-02-26] MEDS: hydrALAZINE 25 MG TAB PO SCH ×3 (08:16→23:04)
[2020-02-26] MEDS: NPH, Human Insulin Isophane 300 UNIT/3 ML VIAL SC SCH ×2 (08:16→23:04)
[2020-02-26] MEDS ORDERED: Heparin 10,000 UNITS/ 10 ML VIAL ONE (09:56)
--- NOTE | 2020-02-26 12:23 | PDOC.HOSPP ---
- Subjective Encounter Date: 02/26/20 Subjective: Patient is doing well. R femoral HD catheter placed yesterday. Will be dialyzed this afternoon. Denies N/V or itching. No shortness of breath - Objective Vital Signs & Weight: Vital Signs (12 hours) Temp Pulse Resp BP BP Pulse Ox 02/26/20 11:54 96.2 F L 69 16 153/84 H 100 02/26/20 07:57 96.7 F L 66 20 169/79 H 02/26/20 03:26 97.8 F 65 17 155/78 H 100 Weight Weight 231 lb 14.4 oz I&O: 02/25/20 02/26/20 02/27/20 06:59 06:59 06:59 Intake Total 1760 720 Balance 1760 720 Result Diagrams: 02/23/20 11:34 02/26/20 04:30 Additional Labs: Accuchecks 02/26/20 02/26/20 02/25/20 10:04 04:34 20:09 POC Glucose 188 H 131 H 169 H 02/25/20 16:33 POC Glucose 118 H Hospitalist ROS - Medication Medications: Active Medications Generic Name Dose Route Start Last Admin Trade Name Freq PRN Reason Stop Dose Admin Amlodipine Besylate 10 mg 02/24/20 09:00 02/26/20 08:14 Amlodipine 10 Mg Tab PO Not Given DAILY ELIAS Ascorbic Acid 500 mg 02/24/20 09:00 02/26/20 08:13 Ascorbic Acid 500 Mg Chewable Tablet PO 500 mg DAILY ELIAS Administration Aspirin 81 mg 02/24/20 09:00 02/26/20 08:13 Aspirin 81 Mg Enteric Coated Tablet PO 81 mg DAILY ELIAS Administration Atorvastatin Calcium 40 mg 02/23/20 21:00 02/25/20 20:14 Atorvastatin Calcium 40 Mg Tab PO 40 mg HS ELIAS Administration Calcitriol 0.25 mcg 02/25/20 09:00 02/26/20 08:13 Calcitriol 0.25 Mcg Cap PO 0.25 mcg DAILY ELIAS Administration Calcium Carbonate 1,000 mg 02/24/20 12:00 02/26/20 11:54 Calcium Carbonate 500 Mg Chewtab PO 1,000 mg TID- ELIAS Administration Carvedilol 25 mg 02/24/20 09:00 02/26/20 08:15 Carvedilol 25 Mg Tab PO Not Given BID [facility] Cholecalciferol 400 units 02/24/20 09:00 02/26/20 08:13 Cholecalciferol (Vitamin D3) 400 Units Tab PO 400 units DAILY ELIAS Administration Dexamethasone 8 mg 02/23/20 15:00 02/25/20 15:05 Dexamethasone 4 Mg/Ml Vial SLOW IVP 8 mg 1500 ELIAS Administration Enoxaparin Sodium 30 mg 02/24/20 09:00 02/26/20 08:15 Enoxaparin Sodium 30 Mg/0.3 Ml Syringe SC 30 mg 0900 ELIAS Administration Epoetin Nasim-epbx 10,000 unit 02/24/20 12:00 02/24/20 12:14 Epoetin Nasim-Epbx (Esrd) 10,000 Unit/Ml Vial SC 10,000 unit Q7D ELIAS Administration Ferrous Sulfate 325 mg 02/25/20 08:00 02/26/20 08:15 Ferrous Sulfate 325 Mg Tab PO 325 mg QAM-WM ELIAS Administration Hydralazine HCl 50 mg 02/24/20 09:00 02/26/20 08:16 Hydralazine 25 Mg Tab PO Not Given BID [facility] Ferric Sodium Gluconate 110 mls @ 110 mls/hr 02/25/20 09:00 02/26/20 08:12 Complex 125 mg/ Sodium IVPB 110 mls Chloride DAILY ELIAS Administration Insulin Human Lispro 0 units 02/24/20 08:40 02/25/20 12:04 Humalog 300 Units/3 Ml Vial SC 11 unit .AGGRESSIVE SLIDING PRN Administration Aggressive Correctional Scale Insulin Human Lispro 0 units 02/24/20 23:11 02/25/20 00:16 Humalog 300 Units/3 Ml Vial SC 4 unit .BEDTIME SLIDING SC PRN Administration Bedtime Correctional Scale Insulin Human NPH 20 unit 02/25/20 09:00 02/26/20 08:16 Nph, Human Insulin Isophane 300 Unit/3 Ml Vial SC Not Given BID [facility] Isosorbide Mononitrate 30 mg 02/24/20 09:00 02/26/20 08:16 Isosorbide Mononitrate Er 30 Mg Tab PO Not Given DAILY ELIAS Pantoprazole Sodium 40 mg 02/24/20 09:00 02/26/20 08:13 Pantoprazole 40 Mg Tab PO 40 mg DAILY ELIAS Administration Sodium Bicarbonate 650 mg 02/23/20 21:00 02/26/20 08:13 Sodium Bicarbonate Tab 325 Mg Tab PO 650 mg BID ELIAS Administration Sodium Chloride 10 ml 02/24/20 21:00 02/26/20 08:17 Flush - Normal Saline 10 Ml Syringe IVF 10 ml Q12HR ELIAS Administration Thiamine HCl 100 mg 02/24/20 09:00 02/26/20 08:13 Thiamine 100 Mg Tab PO 100 mg DAILY ELIAS Administration Zinc Sulfate 220 mg 02/24/20 09:00 02/26/20 08:13 Zinc Sulfate 220 Mg Cap PO 220 mg DAILY ELIAS Administration - Exam General Appearance: NAD, awake alert Eye: anicteric sclera ENT: normocephalic atraumatic Neck: supple Heart: RRR, no murmur, no gallops Respiratory: CTAB, no wheezes, no rales, no ronchi Extremities: no cyanosis, no clubbing, no edema Neurological: cranial nerve grossly intact Musculoskeletal: normal tone, normal strength, no muscle wasting Psychiatric: normal affect, normal behavior Hosp A/P (1) COVID-19 Code(s): U07.1 - COVID-19 Status: Acute (2) Nephrotic range proteinuria Code(s): R80.9 - PROTEINURIA, UNSPECIFIED Status: Acute (3) CKD (chronic kidney disease) stage 3, GFR 30-59 ml/min Code(s): N18.3 - CHRONIC KIDNEY DISEASE, STAGE 3 (MODERATE) * DO NOT USE * Status: Chronic (4) Diabetes type 2, controlled Code(s): E11.9 - TYPE 2 DIABETES MELLITUS WITHOUT COMPLICATIONS Status: Chronic (5) Diabetic nephropathy Status: Chronic (6) Dyslipidemia Code(s): E78.5 - HYPERLIPIDEMIA, UNSPECIFIED Status: Chronic (7) Hypertension Code(s): I10 - ESSENTIAL (PRIMARY) HYPERTENSION Status: Chronic (8) Obesity (BMI 30-39.9) Code(s): E66.9 - OBESITY, UNSPECIFIED Status: Chronic - Plan Assessment Patient is a 60 year old male with a PMH of HTN, Type II diabetes mellitus with nephropathy, CKD stage III who presented with acute encephalopathy and was found to have acute on chronic CKD stage III, and COVID 19. He has no respirartory sx, no infiltrates on CXR. His mental status is back to baseline, no requirement for supplemental O2. No remdesivir or plasma given. However, his renal failure continues to persist. Urine work up suggestive of nephrotic range proteinuria. No structural abnormalities on renal US. Infectious work-up negative so far except COVID-19. Nephrology is planning to start hemodialysis. Metabolic encephalopathy COVID 19 Acute on chronic CKD stage III Nephrotic range proteinuria - hx of Metabolic acidosis Elevated troponins Type III diabetes mellitus - A1c 8.5 Hyperlipidemia - LDL 61 PLAN: HD this afternoon Nephrology anticipates continued outpatient HD sessions I will consult case management today to arrange for outpatient HD chair Continue sodium bicarb, ferrous sulfate and EPO as per nephrology recommendation Continue dexamethasone along with vitamins B1, C, D along with zinc Heparin subc for DVT ppx Aggressive sliding scale insulin for hyperglycemia Increase NPH to 20 units twice daily since patient is on steroids Strict intake and output Continue ASA and atorvastatin given hx of CAD
[2020-02-26] MEDS: Dexamethasone 4 mg/ml Vial SLOW IVP SCH (15:29)
[2020-02-26] MEDS: HumaLOG 300 UNITS/3 ML VIAL SC PRN ×2 (15:34→23:05)
--- NOTE | 2020-02-26 20:11 | PRG ---
DATE OF SERVICE: OBJECTIVE: VITAL SIGNS: The patient noted with the following vital signs; afebrile, temperature 97.6, pulse 73, respiratory rate of 19, O2 saturation of 100% with a blood pressure 170/84. HEENT: Unremarkable. CARDIOVASCULAR SYSTEM: Positive sounds were heard. RESPIRATORY SYSTEM: Clear to auscultation. DIGESTIVE SYSTEM: Revealed a benign abdomen. Positive bowel sounds. EXTREMITIES: No peripheral edema. SKIN: No new gross rash. LYMPHATICS: No peripheral lymphadenopathy. LABORATORY INVESTIGATION: Showed a creatinine of 15.13 with BUN of 120, bicarb of 15, sodium of 129. IMPRESSION: 1. Acute on chronic kidney disease, which seems to be progressively ending up at end-stage renal disease. 2. Metabolic acidosis. 3. Secondary hyperparathyroidism. 4. Coronavirus disease pneumonitis. PLAN: 1. The patient to be initiated on dialysis today with ultrafiltration as tolerated by hemodynamics. 2. Renally dose all medications and avoid potentially nephrotoxic agents. 3. Further management to be dependent on the clinical course. Job ID: [id number]
[2020-02-26] MEDS: Atorvastatin Calcium 40 MG TAB PO SCH (23:04)
[2020-02-27] MEDS: HumaLOG 300 UNITS/3 ML VIAL SC PRN ×3 (06:07→21:05)
[2020-02-27] MEDS: Ferrous Sulfate 325 MG TAB PO SCH (08:07)
[2020-02-27] MEDS: Calcium Carbonate 500 MG ChewTAB PO SCH ×3 (08:07→18:47)
[2020-02-27] MEDS: Thiamine 100 MG TAB PO SCH (08:08)
[2020-02-27] MEDS: Aspirin 81 mg Enteric Coated Tablet PO SCH (08:08)
[2020-02-27] MEDS: Amlodipine 10 MG TAB PO SCH (08:08)
[2020-02-27] MEDS: Ascorbic Acid 500 mg Chewable Tablet PO SCH (08:08)
[2020-02-27] MEDS: Calcitriol 0.25 MCG CAP PO SCH (08:08)
[2020-02-27] MEDS: Enoxaparin Sodium 30 MG/0.3 ML SYRINGE SC SCH (08:09)
[2020-02-27] MEDS: hydrALAZINE 25 MG TAB PO SCH ×2 (08:09→20:43)
[2020-02-27] MEDS: Carvedilol 25 MG TAB PO SCH ×2 (08:09→20:43)
[2020-02-27] MEDS: Cholecalciferol (Vitamin D3) 400 UNITS TAB PO SCH (08:09)
[2020-02-27] MEDS: NPH, Human Insulin Isophane 300 UNIT/3 ML VIAL SC SCH ×2 (08:10→20:45)
[2020-02-27] MEDS: Zinc Sulfate 220 MG CAP PO SCH (08:11)
[2020-02-27] MEDS: Sodium Bicarbonate Tab 325 MG TAB PO SCH (08:11)
[2020-02-27 09:10] LABS: #Lymphocytes 0.4 thou/uL (1.20-3.40); #Monocytes 0.4 thou/uL (0.11-0.59); #Neutrophils 8.2 thou/uL (1.40-6.50); %Eosinophils 0.2 % (0.0-10.0); %Lymphocytes 4.2 % (21.0-51.0); %Monocytes 4.2 % (0.0-10.0); %Neutrophils 91.4 % (42.0-75.0); Hemoglobin 9.5 g/dL (14.0-18.0); Mean Corpuscular HGB CONC 33.7 g/dL (32.0-36.0); Mean Corpuscular Volume 92.2 fL (78.0-98.0); Mean Platelet Volume 8.2 fL (7.4-10.4); Platelet Count 308 thou/uL (130-400); RBC Distribution Width 12.8 % (11.5-14.5); Red Blood Cell (RBC) Count 3.07 mill/uL (4.70-6.10)
[2020-02-27 09:28] LABS: Anion Gap 20 mmol/L (10-20); BUN (Urea Nitrogen) 105 mg/dL (8.4-25.7); Calc. Creatinine Clearance 9 mL/min (70-130); Calcium 7.9 mg/dL (7.8-10.44); Carbon Dioxide 19 mmol/L (22-29); Chloride 99 mmol/L (98-107); Glucose 212 mg/dL (70-105); Magnesium 2.1 mg/dL (1.6-2.6); Potassium 3.8 mmol/L (3.5-5.1); Sodium 134 mmol/L (136-145)
[2020-02-27 09:31] LABS: Phosphorus 4.2 mg/dL (2.3-4.7)
[2020-02-27] MEDS ORDERED: Heparin 10,000 UNITS/ 10 ML VIAL ONE (09:59)
[2020-02-27] MEDS: Dexamethasone 6 MG in Sodium Chloride 0.9% 50 ML IVPB SCH (11:10)
[2020-02-27] MEDS: Iron, Sodium Ferric Gluconate 125 MG in Sodium Chloride 0.9% 100 ML IVPB SCH (11:11)
[2020-02-27] MEDS: cefTRIAXone\\ROCEPHIN 1 GM in Sodium Chloride 0.9% 100 ML IVPB SCH (11:13)
--- NOTE | 2020-02-27 12:25 | PDOC.HOSPP ---
- Subjective Encounter Date: 02/27/20 Subjective: Patient was dialyzed yesterday for 2 hours. Comfortable this morning. Denies nausea, shortness of breath or itching - Objective Vital Signs & Weight: Vital Signs (12 hours) Temp Pulse Resp BP Pulse Ox 02/27/20 08:00 97.8 F 69 20 161/77 H 95 02/27/20 03:30 97.8 F 70 18 176/81 H 96 Weight Weight 226 lb 3.108 oz I&O: 02/26/20 02/27/20 02/28/20 06:59 06:59 06:59 Intake Total 720 800 Output Total 400 Balance 720 400 Result Diagrams: 02/27/20 08:40 02/27/20 08:40 Additional Labs: Accuchecks 02/27/20 02/27/20 02/26/20 11:03 05:52 22:19 POC Glucose 244 H 230 H 238 H 02/26/20 02/26/20 21:32 15:32 POC Glucose 261 H 406 H Hospitalist ROS - Medication Medications: Active Medications Generic Name Dose Route Start Last Admin Trade Name Freq PRN Reason Stop Dose Admin Amlodipine Besylate 10 mg 02/24/20 09:00 02/27/20 08:08 Amlodipine 10 Mg Tab PO 10 mg DAILY ELIAS Administration Ascorbic Acid 500 mg 02/24/20 09:00 02/27/20 08:08 Ascorbic Acid 500 Mg Chewable Tablet PO 500 mg DAILY ELIAS Administration Aspirin 81 mg 02/24/20 09:00 02/27/20 08:08 Aspirin 81 Mg Enteric Coated Tablet PO 81 mg DAILY ELIAS Administration Atorvastatin Calcium 40 mg 02/23/20 21:00 02/26/20 23:04 Atorvastatin Calcium 40 Mg Tab PO 40 mg HS ELIAS Administration Calcitriol 0.25 mcg 02/25/20 09:00 02/27/20 08:08 Calcitriol 0.25 Mcg Cap PO 0.25 mcg DAILY ELIAS Administration Calcium Carbonate 1,000 mg 02/24/20 12:00 02/27/20 11:16 Calcium Carbonate 500 Mg Chewtab PO 1,000 mg TID-WM ELIAS Administration Carvedilol 25 mg 02/24/20 09:00 02/27/20 08:09 Carvedilol 25 Mg Tab PO 25 mg BID ELIAS Administration Cholecalciferol 400 units 02/24/20 09:00 02/27/20 08:09 Cholecalciferol (Vitamin D3) 400 Units Tab PO 400 units DAILY ELIAS Administration Enoxaparin Sodium 30 mg 02/24/20 09:00 02/27/20 08:09 Enoxaparin Sodium 30 Mg/0.3 Ml Syringe SC 30 mg 0900 ELIAS Administration Epoetin Nasim-epbx 10,000 unit 02/24/20 12:00 02/24/20 12:14 Epoetin Nasim-Epbx (Esrd) 10,000 Unit/Ml Vial SC 10,000 unit Q7D ELIAS Administration Ferrous Sulfate 325 mg 02/25/20 08:00 02/27/20 08:07 Ferrous Sulfate 325 Mg Tab PO 325 mg QAM-WM ELIAS Administration Heparin Sodium (Porcine) 500 units 02/25/20 19:00 02/27/20 08:06 Heparin 500 Units/5 Ml Flush Syringe IVF 500 unit PRN PRN Administration Heparin Flush Hydralazine HCl 50 mg 02/24/20 09:00 02/27/20 08:09 Hydralazine 25 Mg Tab PO 50 mg BID ELIAS Administration Ferric Sodium Gluconate 110 mls @ 110 mls/hr 02/25/20 09:00 02/27/20 11:11 Complex 125 mg/ Sodium IVPB 110 mls Chloride DAILY ELIAS Administration Dexamethasone 6 mg/ Sodium 50.6 mls @ 100 mls/hr 02/27/20 09:00 02/27/20 11:10 Chloride IVPB 50.6 mls DAILY ELIAS Administration Ceftriaxone Sodium 1 gm/ 100 mls @ 200 mls/hr 02/27/20 08:00 02/27/20 11:13 Sodium Chloride IVPB 100 mls Q24HR ELIAS Administration Insulin Human Lispro 0 units 02/24/20 08:40 02/27/20 11:14 Humalog 300 Units/3 Ml Vial SC 6 unit .AGGRESSIVE SLIDING PRN Administration Aggressive Correctional Scale Insulin Human Lispro 0 units 02/24/20 23:11 02/26/20 23:05 Humalog 300 Units/3 Ml Vial SC 2 unit .BEDTIME SLIDING SC PRN Administration Bedtime Correctional Scale Insulin Human NPH 20 unit 02/25/20 09:00 02/27/20 08:10 Nph, Human Insulin Isophane 300 Unit/3 Ml Vial SC 20 unit BID ELIAS Administration Isosorbide Mononitrate 30 mg 02/24/20 09:00 02/27/20 08:09 Isosorbide Mononitrate Er 30 Mg Tab PO 30 mg DAILY ELIAS Administration Pantoprazole Sodium 40 mg 02/24/20 09:00 02/27/20 08:11 Pantoprazole 40 Mg Tab PO 40 mg DAILY ELIAS Administration Sodium Bicarbonate 650 mg 02/23/20 21:00 02/27/20 08:11 Sodium Bicarbonate Tab 325 Mg Tab PO 650 mg BID ELIAS Administration Sodium Chloride 10 ml 02/24/20 21:00 02/27/20 08:11 Flush - Normal Saline 10 Ml Syringe IVF 10 ml Q12HR ELIAS Administration Thiamine HCl 100 mg 02/24/20 09:00 02/27/20 08:08 Thiamine 100 Mg Tab PO 100 mg DAILY ELIAS Administration Zinc Sulfate 220 mg 02/24/20 09:00 02/27/20 08:11 Zinc Sulfate 220 Mg Cap PO 220 mg DAILY ELIAS Administration - Exam General Appearance: NAD, awake alert General - other findings: obese Eye - other findings: Periorbital edema - resolved ENT: normocephalic atraumatic Neck: supple, symmetric Heart: RRR, no murmur, no gallops Respiratory: CTAB, no wheezes, no rales, no ronchi Gastrointestinal: soft, non-tender, non-distended, normal bowel sounds Extremities: no clubbing, no edema Skin: normal turgor, no lesions, no rashes Neurological: cranial nerve grossly intact Musculoskeletal: normal tone, normal strength Psychiatric: normal affect, normal behavior Hosp A/P (1) COVID-19 Code(s): U07.1 - COVID-19 Status: Acute (2) Nephrotic range proteinuria Code(s): R80.9 - PROTEINURIA, UNSPECIFIED Status: Acute (3) CKD (chronic kidney disease) stage 3, GFR 30-59 ml/min Code(s): N18.3 - CHRONIC KIDNEY DISEASE, STAGE 3 (MODERATE) * DO NOT USE * Status: Chronic (4) Diabetes type 2, controlled Code(s): E11.9 - TYPE 2 DIABETES MELLITUS WITHOUT COMPLICATIONS Status: Chronic (5) Diabetic nephropathy Status: Chronic (6) Dyslipidemia Code(s): E78.5 - HYPERLIPIDEMIA, UNSPECIFIED Status: Chronic (7) Hypertension Code(s): I10 - ESSENTIAL (PRIMARY) HYPERTENSION Status: Chronic (8) Obesity (BMI 30-39.9) Code(s): E66.9 - OBESITY, UNSPECIFIED Status: Chronic - Plan Assessment Patient is a 60 year old male with a PMH of HTN, Type II diabetes mellitus with nephropathy, CKD stage III who presented with acute encephalopathy and was found to have acute on chronic CKD stage III, and COVID 19. He has no respiratory sx, or infiltrates on CXR. His mental status is back to baseline, no requirement for supplemental O2. No remdesivir or plasma given. HD access placed on 02/24 and he underwent his first session the next day. Well tolerated. Metabolic encephalopathy COVID 19 Acute on chronic CKD stage III Nephrotic range proteinuria - hx of Metabolic acidosis Elevated troponins Type III diabetes mellitus - A1c 8.5 Hyperlipidemia - LDL 61 UTI PLAN: Nephrology planning another HD session today Case management consult placed as Nephrology anticipates continued outpatient HD sessions Continue sodium bicarb, ferrous sulfate and EPO as per nephrology recommendation Continue dexamethasone along with vitamins B1, C, D along with zinc Lovenox subc for DVT ppx Aggressive sliding scale insulin for hyperglycemia Increase NPH to 25 units twice daily Strict intake and output Continue ASA and atorvastatin given hx of CAD
[2020-02-27] MEDS ORDERED: NPH, Human Insulin Isophane 300 UNIT/3 ML VIAL SC SCH (12:30)
--- NOTE | 2020-02-27 17:53 | PRG ---
DATE OF SERVICE: 02/27/2020 SUBJECTIVE: The patient is seen at dialysis, seems to be doing very well. OBJECTIVE: VITAL SIGNS: Noted with the following vital signs; afebrile, temperature 97.9, pulse 68, respiratory rate of 18, O2 saturation of 95%, blood pressure 127/64. HEENT: Unremarkable. CARDIOVASCULAR SYSTEM: First and second heart sounds were heard. RESPIRATORY SYSTEM: Clear to auscultation. DIGESTIVE SYSTEM: Benign abdomen. Positive bowel sounds. EXTREMITIES: No peripheral edema. SKIN: No new gross rash. LYMPHATICS: No peripheral lymphadenopathy. IMPRESSION: 1. Acute on chronic kidney disease with most likely as committing to end-stage renal disease. 2. Anemia of chronic kidney disease. 3. Metabolic acidosis, improving. 4. COVID pneumonitis. PLAN: 1. The patient is day #2 on hemodialysis today, doing very well, tolerating the procedure well. 2. We will continue with temporary dialysis for now until the access surgeon deem the patient is stable for long-term access. 3. We will begin to involve high risk case manager as relates to outpatient dialysis placement. 4. Discontinue bicarb supplementation as well as irons or oral iron supplementation. 5. Further management to be dependent on the clinical course. Job ID: [id number]
[2020-02-27] MEDS: Atorvastatin Calcium 40 MG TAB PO SCH (20:43)
[2020-02-28] MEDS: HumaLOG 300 UNITS/3 ML VIAL SC PRN ×3 (05:52→20:47)
[2020-02-28] MEDS: cefTRIAXone\\ROCEPHIN 1 GM in Sodium Chloride 0.9% 100 ML IVPB SCH (09:04)
[2020-02-28] MEDS: Enoxaparin Sodium 30 MG/0.3 ML SYRINGE SC SCH (09:06)
[2020-02-28] MEDS: Carvedilol 25 MG TAB PO SCH ×2 (09:07→20:40)
[2020-02-28] MEDS: Zinc Sulfate 220 MG CAP PO SCH (09:07)
[2020-02-28] MEDS: Calcium Carbonate 500 MG ChewTAB PO SCH ×3 (09:07→18:38)
[2020-02-28] MEDS: Aspirin 81 mg Enteric Coated Tablet PO SCH (09:07)
[2020-02-28] MEDS: Thiamine 100 MG TAB PO SCH (09:07)
[2020-02-28] MEDS: Cholecalciferol (Vitamin D3) 400 UNITS TAB PO SCH (09:07)
[2020-02-28] MEDS: Ascorbic Acid 500 mg Chewable Tablet PO SCH (09:07)
[2020-02-28] MEDS: hydrALAZINE 25 MG TAB PO SCH ×2 (09:08→20:40)
[2020-02-28] MEDS: Calcitriol 0.25 MCG CAP PO SCH (09:08)
[2020-02-28] MEDS: NPH, Human Insulin Isophane 300 UNIT/3 ML VIAL SC SCH ×2 (09:12→20:40)
[2020-02-28] MEDS: NIFEdipine XL 60 MG TAB PO SCH (09:13)
[2020-02-28] MEDS ORDERED: Heparin 10,000 UNITS/ 10 ML VIAL ONE (09:31)
[2020-02-28] MEDS: Iron, Sodium Ferric Gluconate 125 MG in Sodium Chloride 0.9% 100 ML IVPB SCH (11:02)
[2020-02-28] MEDS: Dexamethasone 6 MG in Sodium Chloride 0.9% 50 ML IVPB SCH (12:32)
--- NOTE | 2020-02-28 12:42 | PDOC.HOSPP ---
- Subjective Encounter Date: 02/28/20 Subjective: No acute events overnight. Patient was dialyzed again yesterday. Is as ymptomatic today. - Objective Vital Signs & Weight: Vital Signs (12 hours) Temp Pulse Resp BP Pulse Ox 02/28/20 08:05 97.7 F 68 17 168/82 H 98 02/28/20 06:34 174/84 H 02/28/20 05:15 97.7 F 66 18 193/96 H 96 Weight Weight 225 lb 8.526 oz I&O: 02/27/20 02/28/20 02/29/20 06:59 06:59 06:59 Intake Total 800 1000 Output Total 400 400 Balance 400 600 Result Diagrams: 02/27/20 08:40 02/27/20 08:40 Additional Labs: Accuchecks 02/28/20 02/28/20 02/27/20 10:55 05:15 20:55 POC Glucose 211 H 177 H 244 H Hospitalist ROS - Medication Medications: Active Medications Generic Name Dose Route Start Last Admin Trade Name Herve PRN Reason Stop Dose Admin Ascorbic Acid 500 mg 02/24/20 09:00 02/28/20 09:07 Ascorbic Acid 500 Mg Chewable Tablet PO 500 mg DAILY ELIAS Administration Aspirin 81 mg 02/24/20 09:00 02/28/20 09:07 Aspirin 81 Mg Enteric Coated Tablet PO 81 mg DAILY ELIAS Administration Atorvastatin Calcium 40 mg 02/23/20 21:00 02/27/20 20:43 Atorvastatin Calcium 40 Mg Tab PO 40 mg HS ELIAS Administration Calcitriol 0.25 mcg 02/25/20 09:00 02/28/20 09:08 Calcitriol 0.25 Mcg Cap PO 0.25 mcg DAILY ELIAS Administration Calcium Carbonate 1,000 mg 02/24/20 12:00 02/28/20 12:32 Calcium Carbonate 500 Mg Chewtab PO 1,000 mg TID-WM ELIAS Administration Carvedilol 25 mg 02/24/20 09:00 02/28/20 09:07 Carvedilol 25 Mg Tab PO 25 mg BID ELIAS Administration Cholecalciferol 400 units 02/24/20 09:00 02/28/20 09:07 Cholecalciferol (Vitamin D3) 400 Units Tab PO 400 units DAILY ELIAS Administration Enoxaparin Sodium 30 mg 02/24/20 09:00 02/28/20 09:06 Enoxaparin Sodium 30 Mg/0.3 Ml Syringe SC 30 mg 0900 ELIAS Administration Epoetin Nasim-epbx 10,000 unit 02/24/20 12:00 02/24/20 12:14 Epoetin Nasim-Epbx (Esrd) 10,000 Unit/Ml Vial SC 10,000 unit Q7D ELIAS Administration Heparin Sodium (Porcine) 500 units 02/25/20 19:00 02/27/20 08:06 Heparin 500 Units/5 Ml Flush Syringe IVF 500 unit PRN PRN Administration Heparin Flush Hydralazine HCl 50 mg 02/24/20 09:00 02/28/20 09:08 Hydralazine 25 Mg Tab PO 50 mg BID ELIAS Administration Ferric Sodium Gluconate 110 mls @ 110 mls/hr 02/25/20 09:00 02/28/20 11:02 Complex 125 mg/ Sodium IVPB 110 mls Chloride DAILY ELIAS Administration Dexamethasone 6 mg/ Sodium 50.6 mls @ 100 mls/hr 02/27/20 09:00 02/28/20 12:32 Chloride IVPB 50.6 mls DAILY ELIAS Administration Ceftriaxone Sodium 1 gm/ 100 mls @ 200 mls/hr 02/27/20 08:00 02/28/20 09:04 Sodium Chloride IVPB 100 mls Q24HR ELIAS Administration Insulin Human Lispro 0 units 02/24/20 08:40 02/28/20 12:33 Humalog 300 Units/3 Ml Vial SC 6 unit .AGGRESSIVE SLIDING PRN Administration Aggressive Correctional Scale Insulin Human Lispro 0 units 02/24/20 23:11 02/27/20 21:05 Humalog 300 Units/3 Ml Vial SC 2 unit .BEDTIME SLIDING SC PRN Administration Bedtime Correctional Scale Insulin Human NPH 25 unit 02/27/20 21:00 02/28/20 09:12 Nph, Human Insulin Isophane 300 Unit/3 Ml Vial SC 25 unit BID ELIAS Administration Isosorbide Mononitrate 30 mg 02/24/20 09:00 02/28/20 09:13 Isosorbide Mononitrate Er 30 Mg Tab PO Not Given DAILY [facility] Nifedipine 60 mg 02/28/20 09:00 02/28/20 09:13 Nifedipine Xl 60 Mg Tab PO Not Given DAILY [facility] Pantoprazole Sodium 40 mg 02/24/20 09:00 02/28/20 09:08 Pantoprazole 40 Mg Tab PO 40 mg DAILY ELIAS Administration Sodium Chloride 10 ml 02/24/20 21:00 02/28/20 09:07 Flush - Normal Saline 10 Ml Syringe IVF 10 ml Q12HR ELIAS Administration Thiamine HCl 100 mg 02/24/20 09:00 02/28/20 09:07 Thiamine 100 Mg Tab PO 100 mg DAILY ELIAS Administration Zinc Sulfate 220 mg 02/24/20 09:00 02/28/20 09:07 Zinc Sulfate 220 Mg Cap PO 220 mg DAILY ELIAS Administration - Exam General Appearance: NAD, awake alert Eye: anicteric sclera ENT: normocephalic atraumatic Neck: supple, symmetric Heart: RRR, no murmur, no gallops, no rubs Respiratory: CTAB, no wheezes, no rales, no ronchi Gastrointestinal - other findings: Right femoral dialysis catheter Extremities: no clubbing, no edema Neurological: cranial nerve grossly intact Psychiatric: normal affect, normal behavior Hosp A/P (1) COVID-19 Code(s): U07.1 - COVID-19 Status: Acute (2) Nephrotic range proteinuria Code(s): R80.9 - PROTEINURIA, UNSPECIFIED Status: Acute (3) CKD (chronic kidney disease) stage 3, GFR 30-59 ml/min Code(s): N18.3 - CHRONIC KIDNEY DISEASE, STAGE 3 (MODERATE) * DO NOT USE * Status: Chronic (4) Diabetes type 2, controlled Code(s): E11.9 - TYPE 2 DIABETES MELLITUS WITHOUT COMPLICATIONS Status: Chronic (5) Diabetic nephropathy Status: Chronic (6) Dyslipidemia Code(s): E78.5 - HYPERLIPIDEMIA, UNSPECIFIED Status: Chronic (7) Hypertension Code(s): I10 - ESSENTIAL (PRIMARY) HYPERTENSION Status: Chronic (8) Obesity (BMI 30-39.9) Code(s): E66.9 - OBESITY, UNSPECIFIED Status: Chronic - Plan Assessment Patient is a 60 year old male with a PMH of HTN, Type II diabetes mellitus with nephropathy, CKD stage III who presented with acute encephalopathy and was found to have acute on chronic CKD stage III, and COVID 19. He has no respiratory sx, or infiltrates on CXR. His mental status is back to baseline, no requirement for supplemental O2. No remdesivir or plasma given. HD access placed on 02/24 and he underwent his first session the next day. Well tolerated. Metabolic encephalopathy COVID 19 Acute on chronic CKD stage III Nephrotic range proteinuria - hx of Metabolic acidosis Elevated troponins Type III diabetes mellitus - A1c 8.5 Hyperlipidemia - LDL 61 UTI PLAN: Case management has been consulted to help secure a chair for outpatient dialysis Nephrology recommends discontinuing sodium bicarb and ferrous sulfate Patient is still on EPO I will continue dexamethasone along with vitamins B1, C, D along with zinc Lovenox subc for DVT ppx Continue NPH and insulin sliding scale for hyperglycemia Also on multiple blood pressure medications. Some of which are being held pre-dialysis Monitor BP post HD. Order placed to notify physician about BP after HD Strict intake and output
[2020-02-28 13:42] LABS: Anion Gap 18 mmol/L (10-20); BUN (Urea Nitrogen) 77 mg/dL (8.4-25.7); Calc. Creatinine Clearance 10 mL/min (70-130); Calcium 7.8 mg/dL (7.8-10.44); Carbon Dioxide 22 mmol/L (22-29); Chloride 99 mmol/L (98-107); Glucose 218 mg/dL (70-105); Potassium 3.6 mmol/L (3.5-5.1); Sodium 135 mmol/L (136-145)
--- NOTE | 2020-02-28 18:39 | PRG ---
DATE OF SERVICE: SUBJECTIVE: The patient noted with the following vital signs. OBJECTIVE: VITAL SIGNS: Afebrile, temperature 98.6, pulse 80, respiratory rate of 16, O2 saturations of 98%, blood pressure 170/100. HEENT: Unremarkable. CARDIOVASCULAR SYSTEM: First and second heart sounds were heard. RESPIRATORY SYSTEM: Clear to auscultation. DIGESTIVE SYSTEM: Revealed a benign abdomen with positive bowel sounds. EXTREMITIES: No peripheral edema. SKIN: No new gross rash. LYMPHATICS: No peripheral lymphadenopathy. LABORATORY INVESTIGATION: Showed a creatinine of 10.8, BUN of 77. Hemoglobin of 9. IMPRESSION: 1. End-stage renal disease, hemodialysis dependent. 2. Anemia of chronic kidney disease. 3. COVID infection. 4. Secondary hyperparathyroidism. PLAN: 1. The patient undergoing hemodialysis with ultrafiltration as tolerated by hemodynamics today. 2. Begin to involve upper caser as relates to outpatient dialysis placement. 3. Continue erythropoiesis stimulating agent. 4. Further management to be dependent on the clinical course. Job ID: [id number]
[2020-02-28] MEDS ORDERED: NIFEdipine XL 60 MG TAB PO SCH (19:30)
[2020-02-28] MEDS: Atorvastatin Calcium 40 MG TAB PO SCH (20:40)
[2020-02-28] MEDS: Labetalol HCl 100 MG/20 ML VIAL SLOW IVP PRN (23:59)
[2020-02-29] MEDS: HumaLOG 300 UNITS/3 ML VIAL SC PRN ×3 (05:43→17:32)
[2020-02-29] MEDS: Iron, Sodium Ferric Gluconate 125 MG in Sodium Chloride 0.9% 100 ML IVPB SCH (08:13)
[2020-02-29] MEDS: Enoxaparin Sodium 30 MG/0.3 ML SYRINGE SC SCH (08:14)
[2020-02-29] MEDS: cefTRIAXone\\ROCEPHIN 1 GM in Sodium Chloride 0.9% 100 ML IVPB SCH (08:16)
[2020-02-29] MEDS: Cholecalciferol (Vitamin D3) 400 UNITS TAB PO SCH (08:17)
[2020-02-29] MEDS: Zinc Sulfate 220 MG CAP PO SCH (08:17)
[2020-02-29] MEDS: Calcium Carbonate 500 MG ChewTAB PO SCH ×3 (08:18→18:15)
[2020-02-29] MEDS: Aspirin 81 mg Enteric Coated Tablet PO SCH (08:19)
[2020-02-29] MEDS: Ascorbic Acid 500 mg Chewable Tablet PO SCH (08:19)
[2020-02-29] MEDS: Calcitriol 0.25 MCG CAP PO SCH (08:19)
[2020-02-29] MEDS: Carvedilol 25 MG TAB PO SCH ×2 (08:22→20:32)
[2020-02-29] MEDS: hydrALAZINE 25 MG TAB PO SCH ×2 (08:23→20:32)
[2020-02-29] MEDS: NPH, Human Insulin Isophane 300 UNIT/3 ML VIAL SC SCH ×2 (08:24→20:49)
[2020-02-29] MEDS ORDERED: Heparin 10,000 UNITS/ 10 ML VIAL ONE (09:33)
[2020-02-29] MEDS: Thiamine 100 MG TAB PO SCH (09:46)
[2020-02-29] MEDS: NIFEdipine XL 60 MG TAB PO SCH (11:40)
--- NOTE | 2020-02-29 11:47 | PDOC.HOSPP ---
- Subjective Encounter Date: 02/29/20 Subjective: No acute events overnight. Patient is having another session of hemodialysis this morning. - Objective Vital Signs & Weight: Vital Signs (12 hours) Temp Pulse Resp BP BP Pulse Ox 02/29/20 11:40 68 02/29/20 08:55 97 02/29/20 08:23 68 02/29/20 08:15 97.8 F 71 20 123/67 97 02/29/20 03:39 97.9 F 68 14 176/84 H 98 02/28/20 23:59 70 182/84 H 02/28/20 23:46 98.2 F 70 14 188/89 H 98 Weight Weight 225 lb 8.526 oz I&O: 02/28/20 02/29/20 03/01/20 06:59 06:59 06:59 Intake Total 1000 1430 Output Total 400 2602 Balance 600 -1172 Result Diagrams: 02/27/20 08:40 02/28/20 12:58 Additional Labs: Accuchecks 02/29/20 02/29/20 02/28/20 11:17 05:07 20:44 POC Glucose 155 H 163 H 218 H 02/28/20 17:46 POC Glucose 109 H Hospitalist ROS - Medication Medications: Active Medications Generic Name Dose Route Start Last Admin Trade Name Donnieq PRN Reason Stop Dose Admin Ascorbic Acid 500 mg 02/24/20 09:00 02/29/20 08:19 Ascorbic Acid 500 Mg Chewable Tablet PO 500 mg DAILY ELIAS Administration Aspirin 81 mg 02/24/20 09:00 02/29/20 08:19 Aspirin 81 Mg Enteric Coated Tablet PO 81 mg DAILY ELIAS Administration Atorvastatin Calcium 40 mg 02/23/20 21:00 02/28/20 20:40 Atorvastatin Calcium 40 Mg Tab PO 40 mg HS ELIAS Administration Calcitriol 0.25 mcg 02/25/20 09:00 02/29/20 08:19 Calcitriol 0.25 Mcg Cap PO 0.25 mcg DAILY ELIAS Administration Calcium Carbonate 1,000 mg 02/24/20 12:00 02/29/20 08:18 Calcium Carbonate 500 Mg Chewtab PO 1,000 mg TID-WM ELIAS Administration Carvedilol 25 mg 02/24/20 09:00 02/29/20 08:22 Carvedilol 25 Mg Tab PO Not Given BID [facility] Cholecalciferol 400 units 02/24/20 09:00 02/29/20 08:17 Cholecalciferol (Vitamin D3) 400 Units Tab PO 400 units DAILY ELIAS Administration Enoxaparin Sodium 30 mg 02/24/20 09:00 02/29/20 08:14 Enoxaparin Sodium 30 Mg/0.3 Ml Syringe SC 30 mg 0900 ELIAS Administration Epoetin Nasim-epbx 10,000 unit 02/24/20 12:00 02/24/20 12:14 Epoetin Nasim-Epbx (Esrd) 10,000 Unit/Ml Vial SC 10,000 unit Q7D ELIAS Administration Heparin Sodium (Porcine) 500 units 02/25/20 19:00 02/27/20 08:06 Heparin 500 Units/5 Ml Flush Syringe IVF 500 unit PRN PRN Administration Heparin Flush Hydralazine HCl 50 mg 02/24/20 09:00 02/29/20 08:23 Hydralazine 25 Mg Tab PO Not Given BID ELIAS Ferric Sodium Gluconate 110 mls @ 110 mls/hr 02/25/20 09:00 02/29/20 08:13 Complex 125 mg/ Sodium IVPB 110 mls Chloride DAILY ELIAS Administration Dexamethasone 6 mg/ Sodium 50.6 mls @ 100 mls/hr 02/27/20 09:00 02/28/20 12:32 Chloride IVPB 50.6 mls DAILY ELIAS Administration Ceftriaxone Sodium 1 gm/ 100 mls @ 200 mls/hr 02/27/20 08:00 02/29/20 08:16 Sodium Chloride IVPB 100 mls Q24HR ELIAS Administration Insulin Human Lispro 0 units 02/24/20 08:40 02/29/20 05:45 Humalog 300 Units/3 Ml Vial SC 3 unit .AGGRESSIVE SLIDING PRN Administration Aggressive Correctional Scale Insulin Human Lispro 0 units 02/24/20 23:11 02/28/20 20:47 Humalog 300 Units/3 Ml Vial SC 2 unit .BEDTIME SLIDING SC PRN Administration Bedtime Correctional Scale Insulin Human NPH 25 unit 02/27/20 21:00 02/29/20 08:24 Nph, Human Insulin Isophane 300 Unit/3 Ml Vial SC 25 unit BID ELIAS Administration Isosorbide Mononitrate 30 mg 02/24/20 09:00 02/29/20 08:26 Isosorbide Mononitrate Er 30 Mg Tab PO 30 mg DAILY ELIAS Administration Labetalol HCl 10 mg 02/28/20 07:53 02/28/20 23:59 Labetalol Hcl 100 Mg/20 Ml Vial SLOW IVP 10 mg Q4H PRN Administration SBP Greater Than 180 Nifedipine 60 mg 02/28/20 09:00 02/29/20 11:40 Nifedipine Xl 60 Mg Tab PO Not Given DAILY ELIAS Pantoprazole Sodium 40 mg 02/24/20 09:00 02/29/20 08:17 Pantoprazole 40 Mg Tab PO 40 mg DAILY ELIAS Administration Sodium Chloride 10 ml 02/24/20 21:00 02/29/20 09:46 Flush - Normal Saline 10 Ml Syringe IVF 10 ml Q12HR ELIAS Administration Thiamine HCl 100 mg 02/24/20 09:00 02/29/20 09:46 Thiamine 100 Mg Tab PO 100 mg DAILY ELIAS Administration Zinc Sulfate 220 mg 02/24/20 09:00 02/29/20 08:17 Zinc Sulfate 220 Mg Cap PO 220 mg DAILY ELIAS Administration - Exam General Appearance: NAD, awake alert Eye: anicteric sclera ENT: normocephalic atraumatic Heart: RRR, no murmur Respiratory: CTAB, no wheezes, no rales, no ronchi Gastrointestinal: soft, non-tender, non-distended Extremities: no clubbing, no edema Neurological: cranial nerve grossly intact Musculoskeletal: normal tone, normal strength Psychiatric: normal affect, normal behavior Hosp A/P (1) COVID-19 Code(s): U07.1 - COVID-19 Status: Acute (2) Nephrotic range proteinuria Code(s): R80.9 - PROTEINURIA, UNSPECIFIED Status: Acute (3) CKD (chronic kidney disease) stage 3, GFR 30-59 ml/min Code(s): N18.3 - CHRONIC KIDNEY DISEASE, STAGE 3 (MODERATE) * DO NOT USE * Status: Chronic (4) Diabetes type 2, controlled Code(s): E11.9 - TYPE 2 DIABETES MELLITUS WITHOUT COMPLICATIONS Status: Chronic (5) Diabetic nephropathy Status: Chronic (6) Dyslipidemia Code(s): E78.5 - HYPERLIPIDEMIA, UNSPECIFIED Status: Chronic (7) Hypertension Code(s): I10 - ESSENTIAL (PRIMARY) HYPERTENSION Status: Chronic (8) Obesity (BMI 30-39.9) Code(s): E66.9 - OBESITY, UNSPECIFIED Status: Chronic - Plan Assessment Patient is a 60 year old male with a PMH of HTN, Type II diabetes mellitus with nephropathy, CKD stage III who presented with acute encephalopathy. Please refer to H&P for details. He was found to have acute on chronic CKD stage III, and COVID 19. He has no respiratory sx, or infiltrates on CXR. His mental status is back to baseline, no requirement for supplemental O2. No remdesivir or plasma given. HD access placed on 02/24 and he underwent his first session the next day. He is currently undergoing daily hemodialysis. Otherwise no complications during this hospitalization. He is pending clearance from nephrology. Metabolic encephalopathy COVID 19 Acute on chronic CKD stage III Nephrotic range proteinuria - hx of Metabolic acidosis Elevated troponins Type III diabetes mellitus - A1c 8.5 Hyperlipidemia - LDL 61 UTI PLAN: Case management has been consulted to help secure a chair for outpatient dialysis Patient has been presented choices nearby hemodialysis centers. Continue EPO as per nephrology Continue dexamethasone along with vitamins B1, C, D along with zinc Lovenox subc for DVT ppx Continue NPH and insulin sliding scale for hyperglycemia Continue current blood pressure regimen: Coreg, nifedipine and hydralazine Monitor BP post HD. Strict intake and output Patient can be discharged home once cleared by egg caser and nephrology.
[2020-02-29] MEDS: Dexamethasone 6 MG in Sodium Chloride 0.9% 50 ML IVPB SCH (14:21)
[2020-02-29 14:26] LABS: Anion Gap 13 mmol/L (10-20); BUN (Urea Nitrogen) 32 mg/dL (8.4-25.7); Calc. Creatinine Clearance 23 mL/min (70-130); Carbon Dioxide 27 mmol/L (22-29); Chloride 101 mmol/L (98-107); Glucose 194 mg/dL (70-105); Potassium 3.2 mmol/L (3.5-5.1); Sodium 138 mmol/L (136-145)
--- NOTE | 2020-02-29 17:55 | PRG ---
DATE OF SERVICE: 02/29/2020 SUBJECTIVE: The patient seems to be doing much better, noted with the following vital signs. OBJECTIVE: VITAL SIGNS: Afebrile, temperature 97.8, pulse 63, respiratory rate of 18, O2 sat is 97%, and blood pressure 124/69. HEENT: Unremarkable. CARDIOVASCULAR SYSTEM: First and second heart sounds were heard. RESPIRATORY SYSTEM: Clear to auscultation. DIGESTIVE SYSTEM: Revealed a benign abdomen. Positive bowel sounds. EXTREMITIES: No peripheral edema. SKIN: No new gross rash. LYMPHATICS: No peripheral lymphadenopathy. LABORATORY INVESTIGATION: Showed a creatinine of 4.99 with BUN of 32, potassium 3.2. IMPRESSION: 1. End-stage renal disease. 2. Metabolic acidosis, resolved. 3. COVID infection. 4. Anemia of chronic kidney disease. 5. Diabetic nephropathy. PLAN: 1. The patient dialysis today and afterwards, will be on a Friday, schedule dialysis; therefore, no dialysis tomorrow. 2. Renally dose all medications. 3. manager desktop working on outpatient dialysis placement. 4. Further management to be dependent on the clinical course. Job ID: [id number]
[2020-02-29] MEDS: Atorvastatin Calcium 40 MG TAB PO SCH (20:32)
[2020-03-01] MEDS: Labetalol HCl 100 MG/20 ML VIAL SLOW IVP PRN ×3 (00:25→12:08)
[2020-03-01] MEDS ORDERED: hydrALAZINE 20 MG/ML VIAL SLOW IVP PRN (06:14)
[2020-03-01] MEDS: Enoxaparin Sodium 30 MG/0.3 ML SYRINGE SC SCH (09:13)
[2020-03-01] MEDS: Thiamine 100 MG TAB PO SCH (09:14)
[2020-03-01] MEDS: Zinc Sulfate 220 MG CAP PO SCH (09:14)
[2020-03-01] MEDS: hydrALAZINE 25 MG TAB PO SCH ×2 (09:14→21:35)
[2020-03-01] MEDS: Ascorbic Acid 500 mg Chewable Tablet PO SCH (09:15)
[2020-03-01] MEDS: NIFEdipine XL 60 MG TAB PO SCH (09:15)
[2020-03-01] MEDS: Aspirin 81 mg Enteric Coated Tablet PO SCH (09:15)
[2020-03-01] MEDS: Calcium Carbonate 500 MG ChewTAB PO SCH ×3 (09:15→16:45)
[2020-03-01] MEDS: Carvedilol 25 MG TAB PO SCH ×2 (09:15→21:35)
[2020-03-01] MEDS: Dexamethasone 4 mg/ml Vial SLOW IVP SCH (09:16)
[2020-03-01] MEDS: Cholecalciferol (Vitamin D3) 400 UNITS TAB PO SCH (09:16)
[2020-03-01] MEDS: Calcitriol 0.25 MCG CAP PO SCH (09:16)
[2020-03-01] MEDS: cefTRIAXone\\ROCEPHIN 1 GM in Sodium Chloride 0.9% 100 ML IVPB SCH (09:17)
[2020-03-01] MEDS: NPH, Human Insulin Isophane 300 UNIT/3 ML VIAL SC SCH ×2 (09:20→21:45)
[2020-03-01] MEDS: Iron, Sodium Ferric Gluconate 125 MG in Sodium Chloride 0.9% 100 ML IVPB SCH (10:41)
[2020-03-01] MEDS: HumaLOG 300 UNITS/3 ML VIAL SC PRN ×2 (12:08→18:42)
--- NOTE | 2020-03-01 18:29 | PRG ---
DATE OF SERVICE: 03/01/2020 OBJECTIVE: VITAL SIGNS: The patient noted with the following vital signs; afebrile, temperature 98.6, pulse 76, respiratory rate of 20, O2 saturations of 99%, blood pressure 165/74. HEENT: Unremarkable. CARDIOVASCULAR SYSTEM: Positive first and second heart sounds heard. RESPIRATORY SYSTEM: Clear to auscultation. DIGESTIVE SYSTEM: Revealed a benign abdomen. Positive bowel sounds. EXTREMITIES: No peripheral edema. SKIN: No new gross rash. LYMPHATICS: No peripheral lymphadenopathy. IMPRESSION: 1. End-stage renal disease. 2. COVID pneumonitis . 3. Respiratory distress. 4. Anemia of chronic kidney disease. 5. Secondary hyperparathyroidism. PLAN: 1. The patient to continue with current schedule of dialysis with ultrafiltration as tolerated. 2. Erythropoiesis stimulating agent to continue. 3. Outpatient dialysis placement in progress; however, the patient will need a secure dialysis access prior to being discharged to outpatient dialysis facility for now. The patient does have only temporary dialysis access. 4. Further management to be dependent on the clinical course. Job ID: [id number]
[2020-03-01] MEDS: Atorvastatin Calcium 40 MG TAB PO SCH (21:35)
[2020-03-02] MEDS: Cholecalciferol (Vitamin D3) 400 UNITS TAB PO SCH (08:14)
[2020-03-02] MEDS: NIFEdipine XL 60 MG TAB PO SCH (08:15)
[2020-03-02] MEDS: Calcitriol 0.25 MCG CAP PO SCH (08:15)
[2020-03-02] MEDS: Calcium Carbonate 500 MG ChewTAB PO SCH ×3 (08:15→17:15)
[2020-03-02] MEDS: Thiamine 100 MG TAB PO SCH (08:15)
[2020-03-02] MEDS: Ascorbic Acid 500 mg Chewable Tablet PO SCH (08:15)
[2020-03-02] MEDS: Zinc Sulfate 220 MG CAP PO SCH (08:15)
[2020-03-02] MEDS: Enoxaparin Sodium 30 MG/0.3 ML SYRINGE SC SCH (08:16)
[2020-03-02] MEDS: Carvedilol 25 MG TAB PO SCH ×2 (08:16→20:26)
[2020-03-02] MEDS: hydrALAZINE 25 MG TAB PO SCH ×2 (08:16→20:25)
[2020-03-02] MEDS: Aspirin 81 mg Enteric Coated Tablet PO SCH (08:16)
[2020-03-02] MEDS: Dexamethasone 4 mg/ml Vial SLOW IVP SCH (08:17)
[2020-03-02] MEDS: NPH, Human Insulin Isophane 300 UNIT/3 ML VIAL SC SCH ×2 (08:17→20:27)
[2020-03-02] MEDS: cefTRIAXone\\ROCEPHIN 1 GM in Sodium Chloride 0.9% 100 ML IVPB SCH (08:17)
--- NOTE | 2020-03-02 08:28 | PDOC.HOSPP ---
- Subjective Encounter Date: 03/01/20 Encounter Time: 10:30 Subjective: pt up in bed no complains - Objective Vital Signs & Weight: Vital Signs (12 hours) Pulse Resp BP Pulse Ox 03/02/20 04:00 18 148/72 H 96 03/01/20 21:35 76 Weight Weight 219 lb 12.814 oz I&O: 03/01/20 03/02/20 03/03/20 06:59 06:59 06:59 Intake Total 100 1840 Output Total 300 Balance 100 1540 Result Diagrams: 02/27/20 08:40 02/29/20 13:41 Additional Labs: Accuchecks 03/02/20 03/01/20 03/01/20 05:20 21:54 17:27 POC Glucose 131 H 229 H 232 H 03/01/20 11:20 POC Glucose 162 H Hospitalist ROS - Review of Systems Cardiovascular: denies: chest pain, palpitations, orthopnea, paroxysmal noc. dyspnea, edema, light headedness, other Gastrointestinal: denies: nausea, vomiting, abdominal pain, diarrhea, constipation, melena, hematochezia, other Genitourinary: denies: dysuria, frequency, incontinence, hematuria, retention, other - Medication Medications: Active Medications Generic Name Dose Route Start Last Admin Trade Name Freq PRN Reason Stop Dose Admin Ascorbic Acid 500 mg 02/24/20 09:00 03/01/20 09:15 Ascorbic Acid 500 Mg Chewable Tablet PO 500 mg DAILY ELIAS Administration Aspirin 81 mg 02/24/20 09:00 03/01/20 09:15 Aspirin 81 Mg Enteric Coated Tablet PO 81 mg DAILY ELIAS Administration Atorvastatin Calcium 40 mg 02/23/20 21:00 03/01/20 21:35 Atorvastatin Calcium 40 Mg Tab PO 40 mg HS ELIAS Administration Calcitriol 0.25 mcg 02/25/20 09:00 03/01/20 09:16 Calcitriol 0.25 Mcg Cap PO 0.25 mcg DAILY ELIAS Administration Calcium Carbonate 1,000 mg 02/24/20 12:00 03/01/20 16:45 Calcium Carbonate 500 Mg Chewtab PO 1,000 mg TID- ELIAS Administration Carvedilol 25 mg 02/24/20 09:00 03/01/20 21:35 Carvedilol 25 Mg Tab PO 25 mg BID ELIAS Administration Cholecalciferol 400 units 02/24/20 09:00 03/01/20 09:16 Cholecalciferol (Vitamin D3) 400 Units Tab PO 400 units DAILY ELIAS Administration Dexamethasone 6 mg 03/01/20 09:00 03/01/20 09:16 Dexamethasone 4 Mg/Ml Vial SLOW IVP 6 mg DAILY ELIAS Administration Enoxaparin Sodium 30 mg 02/24/20 09:00 03/01/20 09:13 Enoxaparin Sodium 30 Mg/0.3 Ml Syringe SC 30 mg 0900 ELIAS Administration Epoetin Nasim-epbx 10,000 unit 02/24/20 12:00 02/24/20 12:14 Epoetin Nasim-Epbx (Esrd) 10,000 Unit/Ml Vial SC 10,000 unit Q7D ELIAS Administration Heparin Sodium (Porcine) 500 units 02/25/20 19:00 02/27/20 08:06 Heparin 500 Units/5 Ml Flush Syringe IVF 500 unit PRN PRN Administration Heparin Flush Hydralazine HCl 50 mg 02/24/20 09:00 03/01/20 21:35 Hydralazine 25 Mg Tab PO 50 mg BID ELIAS Administration Hydralazine HCl 10 mg 03/01/20 06:14 03/01/20 06:36 Hydralazine 20 Mg/Ml Vial SLOW IVP 10 mg Q4H PRN Administration SBP > 180 Ferric Sodium Gluconate 110 mls @ 110 mls/hr 02/25/20 09:00 03/01/20 10:41 Complex 125 mg/ Sodium IVPB 110 mls Chloride DAILY ELIAS Administration Ceftriaxone Sodium 1 gm/ 100 mls @ 200 mls/hr 02/27/20 08:00 03/01/20 09:17 Sodium Chloride IVPB 100 mls Q24HR ELIAS Administration Insulin Human Lispro 0 units 02/24/20 08:40 03/01/20 18:42 Humalog 300 Units/3 Ml Vial SC 6 unit .AGGRESSIVE SLIDING PRN Administration Aggressive Correctional Scale Insulin Human Lispro 0 units 02/24/20 23:11 02/28/20 20:47 Humalog 300 Units/3 Ml Vial SC 2 unit .BEDTIME SLIDING SC PRN Administration Bedtime Correctional Scale Insulin Human NPH 25 unit 02/27/20 21:00 03/01/20 21:45 Nph, Human Insulin Isophane 300 Unit/3 Ml Vial SC 25 unit BID ELIAS Administration Isosorbide Mononitrate 30 mg 02/24/20 09:00 03/01/20 09:16 Isosorbide Mononitrate Er 30 Mg Tab PO 30 mg DAILY ELIAS Administration Labetalol HCl 10 mg 02/28/20 07:53 03/01/20 12:08 Labetalol Hcl 100 Mg/20 Ml Vial SLOW IVP 10 mg Q4H PRN Administration SBP Greater Than 180 Nifedipine 60 mg 02/28/20 09:00 03/01/20 09:15 Nifedipine Xl 60 Mg Tab PO 60 mg DAILY ELIAS Administration Pantoprazole Sodium 40 mg 02/24/20 09:00 03/01/20 09:14 Pantoprazole 40 Mg Tab PO 40 mg DAILY ELIAS Administration Sodium Chloride 10 ml 02/24/20 21:00 03/01/20 21:36 Flush - Normal Saline 10 Ml Syringe IVF 10 ml Q12HR ELIAS Administration Thiamine HCl 100 mg 02/24/20 09:00 03/01/20 09:14 Thiamine 100 Mg Tab PO 100 mg DAILY ELIAS Administration Zinc Sulfate 220 mg 02/24/20 09:00 03/01/20 09:14 Zinc Sulfate 220 Mg Cap PO 220 mg DAILY ELIAS Administration - Exam Neck: negative: supple, symmetric, no JVD, no thyromegaly, no lymphadenopathy, no carotid bruit, JVD Heart: negative: RRR, no murmur, no gallops, no rubs, normal peripheral pulses, irregular, diminshed peripheral pulses, murmur present, II/IV, III/IV Respiratory: negative: CTAB, no wheezes, no rales, no ronchi, normal chest expansion, no tachypnea, normal percussion, rales, rhonchi, tachypneic, wheezes Gastrointestinal: negative: soft, non-tender, non-distended, normal bowel sounds, no palpable masses, no hepatomegaly, no splenomegaly, no bruit, no guarding, no rigidity, tender to palpation, distended, diminished bowl sounds, voluntary guarding Hosp A/P (1) COVID-19 Code(s): U07.1 - COVID-19 Status: Acute (2) Diabetes type 2, controlled Code(s): E11.9 - TYPE 2 DIABETES MELLITUS WITHOUT COMPLICATIONS Status: Chronic (3) Diabetic nephropathy Status: Chronic (4) Dyslipidemia Code(s): E78.5 - HYPERLIPIDEMIA, UNSPECIFIED Status: Chronic (5) Hypertension Code(s): I10 - ESSENTIAL (PRIMARY) HYPERTENSION Status: Chronic - Plan (1) COVID-19 Code(s): U07.1 - COVID-19 Status: Acute (2) Nephrotic range proteinuria Code(s): R80.9 - PROTEINURIA, UNSPECIFIED Status: Acute (3) CKD (chronic kidney disease) stage 3, GFR 30-59 ml/min Code(s): N18.3 - CHRONIC KIDNEY DISEASE, STAGE 3 (MODERATE) * DO NOT USE * Status: Chronic (4) Diabetes type 2, controlled Code(s): E11.9 - TYPE 2 DIABETES MELLITUS WITHOUT COMPLICATIONS Status: Chronic (5) Diabetic nephropathy Status: Chronic (6) Dyslipidemia Code(s): E78.5 - HYPERLIPIDEMIA, UNSPECIFIED Status: Chronic (7) Hypertension Code(s): I10 - ESSENTIAL (PRIMARY) HYPERTENSION Status: Chronic (8) Obesity (BMI 30-39.9) Code(s): E66.9 - OBESITY, UNSPECIFIED Status: Chronic - Plan Assessment Patient is a 60 year old male with a PMH of HTN, Type II diabetes mellitus with nephropathy, CKD stage III who presented with acute encephalopathy. Please refer to H&P for details. He was found to have acute on chronic CKD stage III, and COVID 19. He has no respiratory sx, or infiltrates on CXR. His mental status is back to baseline, no requirement for supplemental O2. No remdesivir or plasma given. HD access placed on 02/24 and he underwent his first session the next day. He is currently undergoing daily hemodialysis. Otherwise no complications during this hospitalization. He is pending clearance from nephrology. Metabolic encephalopathy COVID 19 Acute on chronic CKD stage III Nephrotic range proteinuria - hx of Metabolic acidosis Elevated troponins Type III diabetes mellitus - A1c 8.5 Hyperlipidemia - LDL 61 UTI PLAN: Case management has been consulted to help secure a chair for outpatient dialysis Patient has been presented choices nearby hemodialysis centers. Continue EPO as per nephrology Continue dexamethasone along with vitamins B1, C, D along with zinc Lovenox subc for DVT ppx Continue NPH and insulin sliding scale for hyperglycemia Continue current blood pressure regimen: Coreg, nifedipine and hydralazine Monitor BP post HD. Strict intake and output Patient can be discharged home once cleared by continuous pillowcase cutter and nephrology.
[2020-03-02] MEDS: Iron, Sodium Ferric Gluconate 125 MG in Sodium Chloride 0.9% 100 ML IVPB SCH (09:33)
--- NOTE | 2020-03-02 11:42 | PDOC.HOSPP ---
- Subjective Encounter Date: 03/02/20 Encounter Time: 11:00 Subjective: pt up in bed no complains. - Objective Vital Signs & Weight: Vital Signs (12 hours) Temp Pulse Resp BP Pulse Ox 03/02/20 08:00 98.3 F 76 16 169/81 H 97 03/02/20 04:00 18 148/72 H 96 Weight Weight 219 lb 12.814 oz I&O: 03/01/20 03/02/20 03/03/20 06:59 06:59 06:59 Intake Total 100 1840 Output Total 300 175 Balance 100 1540 -175 Result Diagrams: 02/27/20 08:40 02/29/20 13:41 Additional Labs: Accuchecks 03/02/20 03/02/20 03/01/20 10:40 05:20 21:54 POC Glucose 134 H 131 H 229 H 03/01/20 17:27 POC Glucose 232 H Hospitalist ROS - Review of Systems Cardiovascular: denies: chest pain, palpitations, orthopnea, paroxysmal noc. dyspnea, edema, light headedness, other Gastrointestinal: denies: nausea, vomiting, abdominal pain, diarrhea, constipation, melena, hematochezia, other Genitourinary: denies: dysuria, frequency, incontinence, hematuria, retention, other - Medication Medications: Active Medications Generic Name Dose Route Start Last Admin Trade Name Donnieq PRN Reason Stop Dose Admin Ascorbic Acid 500 mg 02/24/20 09:00 03/02/20 08:15 Ascorbic Acid 500 Mg Chewable Tablet PO 500 mg DAILY ELIAS Administration Aspirin 81 mg 02/24/20 09:00 03/02/20 08:16 Aspirin 81 Mg Enteric Coated Tablet PO 81 mg DAILY ELIAS Administration Atorvastatin Calcium 40 mg 02/23/20 21:00 03/01/20 21:35 Atorvastatin Calcium 40 Mg Tab PO 40 mg HS ELIAS Administration Calcitriol 0.25 mcg 02/25/20 09:00 03/02/20 08:15 Calcitriol 0.25 Mcg Cap PO 0.25 mcg DAILY ELIAS Administration Calcium Carbonate 1,000 mg 02/24/20 12:00 03/02/20 08:15 Calcium Carbonate 500 Mg Chewtab PO 1,000 mg TID-WM ELIAS Administration Carvedilol 25 mg 02/24/20 09:00 03/02/20 08:16 Carvedilol 25 Mg Tab PO 25 mg BID ELIAS Administration Cholecalciferol 400 units 02/24/20 09:00 03/02/20 08:14 Cholecalciferol (Vitamin D3) 400 Units Tab PO 400 units DAILY ELIAS Administration Dexamethasone 6 mg 03/01/20 09:00 03/02/20 08:17 Dexamethasone 4 Mg/Ml Vial SLOW IVP 6 mg DAILY ELIAS Administration Enoxaparin Sodium 30 mg 02/24/20 09:00 03/02/20 08:16 Enoxaparin Sodium 30 Mg/0.3 Ml Syringe SC 30 mg 0900 ELIAS Administration Epoetin Nasim-epbx 10,000 unit 02/24/20 12:00 02/24/20 12:14 Epoetin Nasim-Epbx (Esrd) 10,000 Unit/Ml Vial SC 10,000 unit Q7D ELIAS Administration Heparin Sodium (Porcine) 500 units 02/25/20 19:00 02/27/20 08:06 Heparin 500 Units/5 Ml Flush Syringe IVF 500 unit PRN PRN Administration Heparin Flush Hydralazine HCl 50 mg 02/24/20 09:00 03/02/20 08:16 Hydralazine 25 Mg Tab PO 50 mg BID ELIAS Administration Hydralazine HCl 10 mg 03/01/20 06:14 03/01/20 06:36 Hydralazine 20 Mg/Ml Vial SLOW IVP 10 mg Q4H PRN Administration SBP > 180 Ferric Sodium Gluconate 110 mls @ 110 mls/hr 02/25/20 09:00 03/02/20 09:33 Complex 125 mg/ Sodium IVPB 110 mls Chloride DAILY ELIAS Administration Ceftriaxone Sodium 1 gm/ 100 mls @ 200 mls/hr 02/27/20 08:00 03/02/20 08:17 Sodium Chloride IVPB 100 mls Q24HR ELIAS Administration Insulin Human Lispro 0 units 02/24/20 08:40 03/01/20 18:42 Humalog 300 Units/3 Ml Vial SC 6 unit .AGGRESSIVE SLIDING PRN Administration Aggressive Correctional Scale Insulin Human Lispro 0 units 02/24/20 23:11 02/28/20 20:47 Humalog 300 Units/3 Ml Vial SC 2 unit .BEDTIME SLIDING SC PRN Administration Bedtime Correctional Scale Insulin Human NPH 25 unit 02/27/20 21:00 03/02/20 08:17 Nph, Human Insulin Isophane 300 Unit/3 Ml Vial SC 25 unit BID ELIAS Administration Isosorbide Mononitrate 30 mg 02/24/20 09:00 03/02/20 08:16 Isosorbide Mononitrate Er 30 Mg Tab PO 30 mg DAILY ELIAS Administration Labetalol HCl 10 mg 02/28/20 07:53 03/01/20 12:08 Labetalol Hcl 100 Mg/20 Ml Vial SLOW IVP 10 mg Q4H PRN Administration SBP Greater Than 180 Nifedipine 60 mg 02/28/20 09:00 03/02/20 08:15 Nifedipine Xl 60 Mg Tab PO 60 mg DAILY ELIAS Administration Pantoprazole Sodium 40 mg 02/24/20 09:00 03/02/20 08:15 Pantoprazole 40 Mg Tab PO 40 mg DAILY ELIAS Administration Sodium Chloride 10 ml 02/24/20 21:00 03/02/20 08:18 Flush - Normal Saline 10 Ml Syringe IVF 10 ml Q12HR ELIAS Administration Thiamine HCl 100 mg 02/24/20 09:00 03/02/20 08:15 Thiamine 100 Mg Tab PO 100 mg DAILY ELIAS Administration Zinc Sulfate 220 mg 02/24/20 09:00 03/02/20 08:15 Zinc Sulfate 220 Mg Cap PO 220 mg DAILY ELIAS Administration - Exam Neck: negative: supple, symmetric, no JVD, no thyromegaly, no lymphadenopathy, no carotid bruit, JVD Heart: negative: RRR, no murmur, no gallops, no rubs, normal peripheral pulses, irregular, diminshed peripheral pulses, murmur present, II/IV, III/IV Respiratory: negative: CTAB, no wheezes, no rales, no ronchi, normal chest expansion, no tachypnea, normal percussion, rales, rhonchi, tachypneic, wheezes Gastrointestinal: negative: soft, non-tender, non-distended, normal bowel sounds, no palpable masses, no hepatomegaly, no splenomegaly, no bruit, no guarding, no rigidity, tender to palpation, distended, diminished bowl sounds, voluntary guarding Hosp A/P (1) COVID-19 Code(s): U07.1 - COVID-19 Status: Acute (2) Diabetes type 2, controlled Code(s): E11.9 - TYPE 2 DIABETES MELLITUS WITHOUT COMPLICATIONS Status: Chronic (3) Diabetic nephropathy Status: Chronic (4) Dyslipidemia Code(s): E78.5 - HYPERLIPIDEMIA, UNSPECIFIED Status: Chronic (5) Hypertension Code(s): I10 - ESSENTIAL (PRIMARY) HYPERTENSION Status: Chronic - Plan (1) COVID-19 Code(s): U07.1 - COVID-19 Status: Acute (2) Nephrotic range proteinuria Code(s): R80.9 - PROTEINURIA, UNSPECIFIED Status: Acute (3) CKD (chronic kidney disease) stage 3, GFR 30-59 ml/min Code(s): N18.3 - CHRONIC KIDNEY DISEASE, STAGE 3 (MODERATE) * DO NOT USE * Status: Chronic (4) Diabetes type 2, controlled Code(s): E11.9 - TYPE 2 DIABETES MELLITUS WITHOUT COMPLICATIONS Status: Chronic (5) Diabetic nephropathy Status: Chronic (6) Dyslipidemia Code(s): E78.5 - HYPERLIPIDEMIA, UNSPECIFIED Status: Chronic (7) Hypertension Code(s): I10 - ESSENTIAL (PRIMARY) HYPERTENSION Status: Chronic (8) Obesity (BMI 30-39.9) Code(s): E66.9 - OBESITY, UNSPECIFIED Status: Chronic - Plan Assessment Patient is a 60 year old male with a PMH of HTN, Type II diabetes mellitus with nephropathy, CKD stage III who presented with acute encephalopathy. Please refer to H&P for details. He was found to have acute on chronic CKD stage III, and COVID 19. He has no respiratory sx, or infiltrates on CXR. His mental status is back to baseline, no requirement for supplemental O2. No remdesivir or plasma given. HD access placed on 02/24 and he underwent his first session the next day. He is currently undergoing daily hemodialysis. Otherwise no complications during this hospitalization. He is pending clearance from nephrology. Metabolic encephalopathy COVID 19 Acute on chronic CKD stage III Nephrotic range proteinuria - hx of Metabolic acidosis Elevated troponins Type III diabetes mellitus - A1c 8.5 Hyperlipidemia - LDL 61 UTI PLAN: Case management has been consulted to help secure a chair for outpatient dialysis Patient has been presented choices nearby hemodialysis centers. Continue EPO as per nephrology Continue dexamethasone along with vitamins B1, C, D along with zinc Lovenox subc for DVT ppx Continue NPH and insulin sliding scale for hyperglycemia Continue current blood pressure regimen: Coreg, nifedipine and hydralazine Monitor BP post HD. Strict intake and output Patient can be discharged home once cleared by patient case manager and nephrology. 03/02 spoke with nephrology patient will need a tunnel catheter prior to be discharged. We will recheck Covid test. Patient cannot go home with his femoral catheter.
[2020-03-02] MEDS: EPOETIN ALFA-EPBX (ESRD) 10,000 UNIT/ML VIAL SC SCH (14:51)
--- NOTE | 2020-03-02 17:03 | PRG ---
DATE OF SERVICE: 03/02/2020 SUBJECTIVE: The patient is seen and examined, noted with following vital signs. OBJECTIVE: VITAL SIGNS: Afebrile, temperature 97.1, pulse 72, respiratory rate of 16, O2 saturation of 95%, blood pressure 110/55. HEENT: Unremarkable. CARDIOVASCULAR SYSTEM: First and second heart sounds were heard. RESPIRATORY SYSTEM: Clear to auscultation. DIGESTIVE SYSTEM: Revealed a benign abdomen. Positive bowel sounds. EXTREMITIES: No peripheral edema. SKIN: No new gross rash. LYMPHATICS: No peripheral lymphadenopathy. IMPRESSION: 1. End-stage renal disease. 2. COVID pneumonitis. 3. Anemia of chronic kidney disease. PLAN: 1. The patient to continue with current schedule of Friday, , Friday dialysis. 2. Disposition planning in progress. However, the only bottleneck to this patient's discharge is outpatient dialysis placement for which the patient will require an outpatient friendly dialysis access via tunneled dialysis catheter. I will defer to the access surgeon related to when this type of access would be possible to do placement in this patient given the COVID status of this patient. 3. Further management to be dependent on the clinical course. Job ID: [id number]
[2020-03-02] MEDS: Atorvastatin Calcium 40 MG TAB PO SCH (20:25)
[2020-03-02 23:59] LABS: SARS-CoV-2 PCR by NAA DETECTED (NotDetected)
[2020-03-03] MEDS: Thiamine 100 MG TAB PO SCH (10:00)
[2020-03-03] MEDS: Enoxaparin Sodium 30 MG/0.3 ML SYRINGE SC SCH (10:00)
[2020-03-03] MEDS: Calcium Carbonate 500 MG ChewTAB PO SCH ×3 (10:00→17:25)
[2020-03-03] MEDS: hydrALAZINE 25 MG TAB PO SCH ×2 (10:01→20:57)
[2020-03-03] MEDS: Ascorbic Acid 500 mg Chewable Tablet PO SCH (10:01)
[2020-03-03] MEDS: Aspirin 81 mg Enteric Coated Tablet PO SCH (10:01)
[2020-03-03] MEDS: Cholecalciferol (Vitamin D3) 400 UNITS TAB PO SCH (10:02)
[2020-03-03] MEDS: Zinc Sulfate 220 MG CAP PO SCH (10:02)
[2020-03-03] MEDS: Calcitriol 0.25 MCG CAP PO SCH (10:02)
[2020-03-03] MEDS: NIFEdipine XL 60 MG TAB PO SCH (10:02)
[2020-03-03] MEDS: Carvedilol 25 MG TAB PO SCH ×2 (10:03→20:57)
[2020-03-03] MEDS: Dexamethasone 4 mg/ml Vial SLOW IVP SCH (10:03)
[2020-03-03] MEDS: cefTRIAXone\\ROCEPHIN 1 GM in Sodium Chloride 0.9% 100 ML IVPB SCH (10:06)
[2020-03-03] MEDS: NPH, Human Insulin Isophane 300 UNIT/3 ML VIAL SC SCH ×2 (10:08→20:58)
[2020-03-03] MEDS: Iron, Sodium Ferric Gluconate 125 MG in Sodium Chloride 0.9% 100 ML IVPB SCH (11:45)
--- NOTE | 2020-03-03 15:42 | PDOC.HOSPP ---
- Subjective Encounter Date: 03/03/20 Encounter Time: 10:30 Subjective: Patient up in bed no complaints - Objective Vital Signs & Weight: Vital Signs (12 hours) Temp Pulse Resp BP BP Pulse Ox 03/03/20 11:45 97.8 F 61 20 154/71 H 95 03/03/20 10:00 95 03/03/20 08:00 99.5 F 73 14 154/76 H 97 Weight Admit Weight 229 lb 4.8 oz Weight 225 lb 12.054 oz I&O: 03/02/20 03/03/20 03/04/20 06:59 06:59 06:59 Intake Total 1840 1000 Output Total 300 2501 Balance 1540 -1501 Result Diagrams: 02/27/20 08:40 02/29/20 13:41 Additional Labs: Accuchecks 03/03/20 03/03/20 03/02/20 09:55 05:00 20:13 POC Glucose 149 H 147 H 226 H 03/02/20 16:10 POC Glucose 165 H Hospitalist ROS - Review of Systems Respiratory: denies: cough, dry, shortness of breath, hemoptysis, SOB with excertion, pleuritic pain, sputum, wheezing, other Cardiovascular: denies: chest pain, palpitations, orthopnea, paroxysmal noc. dyspnea, edema, light headedness, other Gastrointestinal: denies: nausea, vomiting, abdominal pain, diarrhea, constipation, melena, hematochezia, other - Medication Medications: Active Medications Generic Name Dose Route Start Last Admin Trade Name Freq PRN Reason Stop Dose Admin Ascorbic Acid 500 mg 02/24/20 09:00 03/03/20 10:01 Ascorbic Acid 500 Mg Chewable Tablet PO 500 mg DAILY ELIAS Administration Aspirin 81 mg 02/24/20 09:00 03/03/20 10:01 Aspirin 81 Mg Enteric Coated Tablet PO 81 mg DAILY ELIAS Administration Atorvastatin Calcium 40 mg 02/23/20 21:00 03/02/20 20:25 Atorvastatin Calcium 40 Mg Tab PO 40 mg HS ELIAS Administration Calcitriol 0.25 mcg 02/25/20 09:00 03/03/20 10:02 Calcitriol 0.25 Mcg Cap PO 0.25 mcg DAILY ELIAS Administration Calcium Carbonate 1,000 mg 02/24/20 12:00 03/03/20 13:31 Calcium Carbonate 500 Mg Chewtab PO 1,000 mg TID-WM ELIAS Administration Carvedilol 25 mg 02/24/20 09:00 03/03/20 10:03 Carvedilol 25 Mg Tab PO 25 mg BID ELIAS Administration Cholecalciferol 400 units 02/24/20 09:00 03/03/20 10:02 Cholecalciferol (Vitamin D3) 400 Units Tab PO 400 units DAILY ELIAS Administration Dexamethasone 6 mg 03/01/20 09:00 03/03/20 10:03 Dexamethasone 4 Mg/Ml Vial SLOW IVP 6 mg DAILY ELIAS Administration Enoxaparin Sodium 30 mg 02/24/20 09:00 03/03/20 10:00 Enoxaparin Sodium 30 Mg/0.3 Ml Syringe SC 30 mg 0900 ELIAS Administration Epoetin Nasim-epbx 10,000 unit 02/24/20 12:00 03/02/20 14:51 Epoetin Nasim-Epbx (Esrd) 10,000 Unit/Ml Vial SC 10,000 unit Q7D ELIAS Administration Heparin Sodium (Porcine) 500 units 02/25/20 19:00 03/02/20 18:27 Heparin 500 Units/5 Ml Flush Syringe IVF 500 unit PRN PRN Administration Heparin Flush Hydralazine HCl 50 mg 02/24/20 09:00 03/03/20 10:01 Hydralazine 25 Mg Tab PO 50 mg BID ELIAS Administration Hydralazine HCl 10 mg 03/01/20 06:14 03/01/20 06:36 Hydralazine 20 Mg/Ml Vial SLOW IVP 10 mg Q4H PRN Administration SBP > 180 Ferric Sodium Gluconate 110 mls @ 110 mls/hr 02/25/20 09:00 03/03/20 11:45 Complex 125 mg/ Sodium IVPB 110 mls Chloride DAILY ELIAS Administration Ceftriaxone Sodium 1 gm/ 100 mls @ 200 mls/hr 02/27/20 08:00 03/03/20 10:06 Sodium Chloride IVPB 100 mls Q24HR ELIAS Administration Insulin Human Lispro 0 units 02/24/20 08:40 03/01/20 18:42 Humalog 300 Units/3 Ml Vial SC 6 unit .AGGRESSIVE SLIDING PRN Administration Aggressive Correctional Scale Insulin Human Lispro 0 units 02/24/20 23:11 02/28/20 20:47 Humalog 300 Units/3 Ml Vial SC 2 unit .BEDTIME SLIDING SC PRN Administration Bedtime Correctional Scale Insulin Human NPH 25 unit 02/27/20 21:00 03/03/20 10:08 Nph, Human Insulin Isophane 300 Unit/3 Ml Vial SC 25 unit BID ELIAS Administration Isosorbide Mononitrate 30 mg 02/24/20 09:00 03/03/20 10:01 Isosorbide Mononitrate Er 30 Mg Tab PO 30 mg DAILY ELIAS Administration Labetalol HCl 10 mg 02/28/20 07:53 03/01/20 12:08 Labetalol Hcl 100 Mg/20 Ml Vial SLOW IVP 10 mg Q4H PRN Administration SBP Greater Than 180 Nifedipine 60 mg 02/28/20 09:00 03/03/20 10:02 Nifedipine Xl 60 Mg Tab PO 60 mg DAILY ELIAS Administration Pantoprazole Sodium 40 mg 02/24/20 09:00 03/03/20 10:02 Pantoprazole 40 Mg Tab PO 40 mg DAILY ELIAS Administration Sodium Chloride 10 ml 02/24/20 21:00 03/03/20 10:07 Flush - Normal Saline 10 Ml Syringe IVF 10 ml Q12HR ELIAS Administration Thiamine HCl 100 mg 02/24/20 09:00 03/03/20 10:00 Thiamine 100 Mg Tab PO 100 mg DAILY ELIAS Administration Zinc Sulfate 220 mg 02/24/20 09:00 03/03/20 10:02 Zinc Sulfate 220 Mg Cap PO 220 mg DAILY ELIAS Administration - Exam Respiratory: negative: CTAB, no wheezes, no rales, no ronchi, normal chest expansion, no tachypnea, normal percussion, rales, rhonchi, tachypneic, wheezes Gastrointestinal: negative: soft, non-tender, non-distended, normal bowel sounds, no palpable masses, no hepatomegaly, no splenomegaly, no bruit, no guarding, no rigidity, tender to palpation, distended, diminished bowl sounds, voluntary guarding Extremities: negative: no cyanosis, no clubbing, no edema, 1+ LE edema, 2+ LE edema, clubbing Skin: negative: normal turgor, no lesions, no rashes, tenting Hosp A/P (1) COVID-19 Code(s): U07.1 - COVID-19 Status: Acute (2) Diabetes type 2, controlled Code(s): E11.9 - TYPE 2 DIABETES MELLITUS WITHOUT COMPLICATIONS Status: Chronic (3) Diabetic nephropathy Status: Chronic (4) Dyslipidemia Code(s): E78.5 - HYPERLIPIDEMIA, UNSPECIFIED Status: Chronic (5) Hypertension Code(s): I10 - ESSENTIAL (PRIMARY) HYPERTENSION Status: Chronic - Plan (1) COVID-19 Code(s): U07.1 - COVID-19 Status: Acute (2) Nephrotic range proteinuria Code(s): R80.9 - PROTEINURIA, UNSPECIFIED Status: Acute (3) CKD (chronic kidney disease) stage 3, GFR 30-59 ml/min Code(s): N18.3 - CHRONIC KIDNEY DISEASE, STAGE 3 (MODERATE) * DO NOT USE * Status: Chronic (4) Diabetes type 2, controlled Code(s): E11.9 - TYPE 2 DIABETES MELLITUS WITHOUT COMPLICATIONS Status: Chronic (5) Diabetic nephropathy Status: Chronic (6) Dyslipidemia Code(s): E78.5 - HYPERLIPIDEMIA, UNSPECIFIED Status: Chronic (7) Hypertension Code(s): I10 - ESSENTIAL (PRIMARY) HYPERTENSION Status: Chronic (8) Obesity (BMI 30-39.9) Code(s): E66.9 - OBESITY, UNSPECIFIED Status: Chronic - Plan Assessment Patient is a 60 year old male with a PMH of HTN, Type II diabetes mellitus with nephropathy, CKD stage III who presented with acute encephalopathy. Please refer to H&P for details. He was found to have acute on chronic CKD stage III, and COVID 19. He has no respiratory sx, or infiltrates on CXR. His mental status is back to baseline, no requirement for supplemental O2. No remdesivir or plasma given. HD access placed on 02/24 and he underwent his first session the next day. He is currently undergoing daily hemodialysis. Otherwise no complications during this hospitalization. He is pending clearance from nephrology. Metabolic encephalopathy COVID 19 Acute on chronic CKD stage III Nephrotic range proteinuria - hx of Metabolic acidosis Elevated troponins Type III diabetes mellitus - A1c 8.5 Hyperlipidemia - LDL 61 UTI PLAN: Case management has been consulted to help secure a chair for outpatient dialysis Patient has been presented choices nearby hemodialysis centers. Continue EPO as per nephrology Continue dexamethasone along with vitamins B1, C, D along with zinc Lovenox subc for DVT ppx Continue NPH and insulin sliding scale for hyperglycemia Continue current blood pressure regimen: Coreg, nifedipine and hydralazine Monitor BP post HD. Strict intake and output Patient can be discharged home once cleared by child welfare caseworker and nephrology. 03/02 spoke with nephrology patient will need a tunnel catheter prior to be discharged. We will recheck Covid test. Patient cannot go home with his femoral catheter. 03/03 patient's repeat Covid test was positive. He will need a dialysis catheter before discharge. Otherwise patient is doing well.
[2020-03-03] MEDS: Atorvastatin Calcium 40 MG TAB PO SCH (20:57)
[2020-03-04 04:34] LABS: #Lymphocytes 1.6 thou/uL (1.20-3.40); #Monocytes 0.8 thou/uL (0.11-0.59); #Neutrophils 11.4 thou/uL (1.40-6.50); %Basophils 0.2 % (0.0-1.0); %Eosinophils 0.3 % (0.0-10.0); %Lymphocytes 11.4 % (21.0-51.0); Hemoglobin 9.2 g/dL (14.0-18.0); Mean Corpuscular HGB CONC 31.9 g/dL (32.0-36.0); Mean Corpuscular Hemoglobin 30.2 pg (27.0-31.0); Mean Corpuscular Volume 94.6 fL (78.0-98.0); Mean Platelet Volume 7.3 fL (7.4-10.4); Platelet Count 407 thou/uL (130-400); RBC Distribution Width 14.1 % (11.5-14.5); Red Blood Cell (RBC) Count 3.06 mill/uL (4.70-6.10); White Blood Cell (WBC) Count 13.9 thou/uL (4.8-10.8)
[2020-03-04 04:58] LABS: Anion Gap 15 mmol/L (10-20); BUN (Urea Nitrogen) 58 mg/dL (8.4-25.7); CRP (Inflammatory) Less than 0.50 mg/dL (= or < 0.5); Calc. Creatinine Clearance 15 mL/min (70-130); Calcium 8.7 mg/dL (7.8-10.44); Carbon Dioxide 28 mmol/L (22-29); Chloride 94 mmol/L (98-107); Glucose 207 mg/dL (70-105); Potassium 3.8 mmol/L (3.5-5.1); Sodium 133 mmol/L (136-145)
[2020-03-04] MEDS: HumaLOG 300 UNITS/3 ML VIAL SC PRN (05:23)
--- NOTE | 2020-03-04 05:28 | PRG ---
DATE OF SERVICE: 03/03/2020 OBJECTIVE: The patient noted with the following vital signs: Afebrile, temperature 99.5, pulse 73, respiratory rate of 14, O2 saturations of 97%, and blood pressure 154/76. HEENT: Unremarkable. CARDIOVASCULAR: First and second heart sounds were heard. RESPIRATORY: Clear to auscultation. DIGESTIVE: Revealed a benign abdomen. EXTREMITIES: No peripheral edema. SKIN: No new gross rash. LYMPHATICS: No peripheral lymphadenopathy. IMPRESSION: 1. End-stage renal disease. 2. COVID pneumonitis. 3. Anemia of chronic kidney disease. 4. Secondary hyperparathyroidism. PLAN: 1. Deescalate blood draws in this patient to avoid iatrogenic anemia needed blood draws to be conducted with dialysis treatment to avoid needle stick. 2. Erythropoiesis-stimulating agent to be continued. 3. Outpatient dialysis placement in progress. This is being hampered by an absence of outpatient friendly dialysis access. 4. Further management to be dependent on the clinical course. Job ID: [id number]
[2020-03-04] MEDS: Enoxaparin Sodium 30 MG/0.3 ML SYRINGE SC SCH (09:43)
[2020-03-04] MEDS: Calcitriol 0.25 MCG CAP PO SCH (09:43)
[2020-03-04] MEDS: NIFEdipine XL 60 MG TAB PO SCH (09:44)
[2020-03-04] MEDS: Calcium Carbonate 500 MG ChewTAB PO SCH ×3 (09:44→17:18)
[2020-03-04] MEDS: Cholecalciferol (Vitamin D3) 400 UNITS TAB PO SCH (09:44)
[2020-03-04] MEDS: Ascorbic Acid 500 mg Chewable Tablet PO SCH (09:44)
[2020-03-04] MEDS: Aspirin 81 mg Enteric Coated Tablet PO SCH (09:44)
[2020-03-04] MEDS: Zinc Sulfate 220 MG CAP PO SCH (09:44)
[2020-03-04] MEDS: Dexamethasone 4 mg/ml Vial SLOW IVP SCH (09:46)
[2020-03-04] MEDS: hydrALAZINE 25 MG TAB PO SCH ×2 (09:46→21:23)
[2020-03-04] MEDS: Carvedilol 25 MG TAB PO SCH ×2 (09:46→21:23)
[2020-03-04] MEDS: Thiamine 100 MG TAB PO SCH (09:46)
[2020-03-04] MEDS: NPH, Human Insulin Isophane 300 UNIT/3 ML VIAL SC SCH (09:47)
[2020-03-04] MEDS: cefTRIAXone\\ROCEPHIN 1 GM in Sodium Chloride 0.9% 100 ML IVPB SCH (09:47)
[2020-03-04] MEDS: Iron, Sodium Ferric Gluconate 125 MG in Sodium Chloride 0.9% 100 ML IVPB SCH (10:50)
[2020-03-04] MEDS ORDERED: Heparin 10,000 UNITS/ 10 ML VIAL ONE (12:48)
--- NOTE | 2020-03-04 15:37 | PDOC.HOSPP ---
- Subjective Encounter Date: 03/04/20 Encounter Time: 10:00 Subjective: Patient up in bed no complaints - Objective Vital Signs & Weight: Vital Signs (12 hours) Temp Pulse Resp BP Pulse Ox 03/04/20 11:50 98.6 F 68 16 176/84 H 97 03/04/20 09:45 97 03/04/20 08:00 98.6 F 71 17 164/77 H 97 03/04/20 04:05 97.6 F 70 16 139/71 98 Weight Admit Weight 229 lb 4.8 oz Weight 223 lb 9.6 oz I&O: 03/03/20 03/04/20 03/05/20 06:59 06:59 06:59 Intake Total 1000 1221.5 Output Total 2501 400 Balance -1501 821.5 Result Diagrams: 03/04/20 04:15 03/04/20 04:15 Additional Labs: Accuchecks 03/04/20 03/03/20 03/03/20 11:57 19:41 16:22 POC Glucose 109 H 294 H 212 H Hospitalist ROS - Review of Systems Cardiovascular: denies: chest pain, palpitations, orthopnea, paroxysmal noc. dyspnea, edema, light headedness, other Gastrointestinal: denies: nausea, vomiting, abdominal pain, diarrhea, constipation, melena, hematochezia, other Genitourinary: denies: dysuria, frequency, incontinence, hematuria, retention, other - Medication Medications: Active Medications Generic Name Dose Route Start Last Admin Trade Name Freq PRN Reason Stop Dose Admin Ascorbic Acid 500 mg 02/24/20 09:00 03/04/20 09:44 Ascorbic Acid 500 Mg Chewable Tablet PO 500 mg DAILY ELIAS Administration Aspirin 81 mg 02/24/20 09:00 03/04/20 09:44 Aspirin 81 Mg Enteric Coated Tablet PO 81 mg DAILY ELIAS Administration Atorvastatin Calcium 40 mg 02/23/20 21:00 03/03/20 20:57 Atorvastatin Calcium 40 Mg Tab PO 40 mg HS ELIAS Administration Calcitriol 0.25 mcg 02/25/20 09:00 03/04/20 09:43 Calcitriol 0.25 Mcg Cap PO 0.25 mcg DAILY ELIAS Administration Calcium Carbonate 1,000 mg 02/24/20 12:00 03/04/20 11:51 Calcium Carbonate 500 Mg Chewtab PO 1,000 mg TID- ELIAS Administration Carvedilol 25 mg 02/24/20 09:00 03/04/20 09:46 Carvedilol 25 Mg Tab PO 25 mg BID ELIAS Administration Cholecalciferol 400 units 02/24/20 09:00 03/04/20 09:44 Cholecalciferol (Vitamin D3) 400 Units Tab PO 400 units DAILY ELIAS Administration Dexamethasone 6 mg 03/01/20 09:00 03/04/20 09:46 Dexamethasone 4 Mg/Ml Vial SLOW IVP 6 mg DAILY ELIAS Administration Enoxaparin Sodium 30 mg 02/24/20 09:00 03/04/20 09:43 Enoxaparin Sodium 30 Mg/0.3 Ml Syringe SC 30 mg 0900 ELIAS Administration Epoetin Nasim-epbx 10,000 unit 02/24/20 12:00 03/02/20 14:51 Epoetin Nasim-Epbx (Esrd) 10,000 Unit/Ml Vial SC 10,000 unit Q7D ELIAS Administration Heparin Sodium (Porcine) 500 units 02/25/20 19:00 03/02/20 18:27 Heparin 500 Units/5 Ml Flush Syringe IVF 500 unit PRN PRN Administration Heparin Flush Hydralazine HCl 50 mg 02/24/20 09:00 03/04/20 09:46 Hydralazine 25 Mg Tab PO 50 mg BID ELIAS Administration Hydralazine HCl 10 mg 03/01/20 06:14 03/01/20 06:36 Hydralazine 20 Mg/Ml Vial SLOW IVP 10 mg Q4H PRN Administration SBP > 180 Ferric Sodium Gluconate 110 mls @ 110 mls/hr 02/25/20 09:00 03/04/20 10:50 Complex 125 mg/ Sodium IVPB 110 mls Chloride DAILY ELIAS Administration Ceftriaxone Sodium 1 gm/ 100 mls @ 200 mls/hr 02/27/20 08:00 03/04/20 09:47 Sodium Chloride IVPB 100 mls Q24HR ELIAS Administration Insulin Human Lispro 0 units 02/24/20 08:40 03/04/20 05:23 Humalog 300 Units/3 Ml Vial SC 6 unit .AGGRESSIVE SLIDING PRN Administration Aggressive Correctional Scale Insulin Human Lispro 0 units 02/24/20 23:11 02/28/20 20:47 Humalog 300 Units/3 Ml Vial SC 2 unit .BEDTIME SLIDING SC PRN Administration Bedtime Correctional Scale Insulin Human NPH 25 unit 02/27/20 21:00 03/04/20 09:47 Nph, Human Insulin Isophane 300 Unit/3 Ml Vial SC 25 unit BID ELIAS Administration Isosorbide Mononitrate 30 mg 02/24/20 09:00 03/04/20 09:44 Isosorbide Mononitrate Er 30 Mg Tab PO 30 mg DAILY ELIAS Administration Labetalol HCl 10 mg 02/28/20 07:53 03/01/20 12:08 Labetalol Hcl 100 Mg/20 Ml Vial SLOW IVP 10 mg Q4H PRN Administration SBP Greater Than 180 Nifedipine 60 mg 02/28/20 09:00 03/04/20 09:44 Nifedipine Xl 60 Mg Tab PO 60 mg DAILY ELIAS Administration Pantoprazole Sodium 40 mg 02/24/20 09:00 03/04/20 09:46 Pantoprazole 40 Mg Tab PO 40 mg DAILY ELIAS Administration Sodium Chloride 10 ml 02/24/20 21:00 03/04/20 09:50 Flush - Normal Saline 10 Ml Syringe IVF 10 ml Q12HR ELIAS Administration Thiamine HCl 100 mg 02/24/20 09:00 03/04/20 09:46 Thiamine 100 Mg Tab PO 100 mg DAILY ELIAS Administration Zinc Sulfate 220 mg 02/24/20 09:00 03/04/20 09:44 Zinc Sulfate 220 Mg Cap PO 220 mg DAILY ELIAS Administration - Exam Neck: negative: supple, symmetric, no JVD, no thyromegaly, no lymphadenopathy, no carotid bruit, JVD Heart: negative: RRR, no murmur, no gallops, no rubs, normal peripheral pulses, irregular, diminshed peripheral pulses, murmur present, II/IV, III/IV Respiratory: negative: CTAB, no wheezes, no rales, no ronchi, normal chest expansion, no tachypnea, normal percussion, rales, rhonchi, tachypneic, wheezes Hosp A/P (1) COVID-19 Code(s): U07.1 - COVID-19 Status: Acute (2) Diabetes type 2, controlled Code(s): E11.9 - TYPE 2 DIABETES MELLITUS WITHOUT COMPLICATIONS Status: Chronic (3) Diabetic nephropathy Status: Chronic (4) Dyslipidemia Code(s): E78.5 - HYPERLIPIDEMIA, UNSPECIFIED Status: Chronic (5) Hypertension Code(s): I10 - ESSENTIAL (PRIMARY) HYPERTENSION Status: Chronic - Plan (1) COVID-19 Code(s): U07.1 - COVID-19 Status: Acute (2) Nephrotic range proteinuria Code(s): R80.9 - PROTEINURIA, UNSPECIFIED Status: Acute (3) CKD (chronic kidney disease) stage 3, GFR 30-59 ml/min Code(s): N18.3 - CHRONIC KIDNEY DISEASE, STAGE 3 (MODERATE) * DO NOT USE * Status: Chronic (4) Diabetes type 2, controlled Code(s): E11.9 - TYPE 2 DIABETES MELLITUS WITHOUT COMPLICATIONS Status: Chronic (5) Diabetic nephropathy Status: Chronic (6) Dyslipidemia Code(s): E78.5 - HYPERLIPIDEMIA, UNSPECIFIED Status: Chronic (7) Hypertension Code(s): I10 - ESSENTIAL (PRIMARY) HYPERTENSION Status: Chronic (8) Obesity (BMI 30-39.9) Code(s): E66.9 - OBESITY, UNSPECIFIED Status: Chronic - Plan Assessment Patient is a 60 year old male with a PMH of HTN, Type II diabetes mellitus with nephropathy, CKD stage III who presented with acute encephalopathy. Please refer to H&P for details. He was found to have acute on chronic CKD stage III, and COVID 19. He has no respiratory sx, or infiltrates on CXR. His mental status is back to baseline, no requirement for supplemental O2. No remdesivir or plasma given. HD access placed on 02/24 and he underwent his first session the next day. He is currently undergoing daily hemodialysis. Otherwise no complications during this hospitalization. He is pending clearance from nephrology. Metabolic encephalopathy COVID 19 Acute on chronic CKD stage III Nephrotic range proteinuria - hx of Metabolic acidosis Elevated troponins Type III diabetes mellitus - A1c 8.5 Hyperlipidemia - LDL 61 UTI PLAN: Case management has been consulted to help secure a chair for outpatient dialysis Patient has been presented choices nearby hemodialysis centers. Continue EPO as per nephrology Continue dexamethasone along with vitamins B1, C, D along with zinc Lovenox subc for DVT ppx Continue NPH and insulin sliding scale for hyperglycemia Continue current blood pressure regimen: Coreg, nifedipine and hydralazine Monitor BP post HD. Strict intake and output Patient can be discharged home once cleared by lining caser and nephrology. 03/02 spoke with nephrology patient will need a tunnel catheter prior to be discharged. We will recheck Covid test. Patient cannot go home with his femoral catheter. 03/03 patient's repeat Covid test was positive. He will need a dialysis catheter before discharge. Otherwise patient is doing well. 03/04 patient currently has no symptoms doing well. Waiting for surgery to put a tunneled catheter prior to discharge.
[2020-03-04] MEDS: Atorvastatin Calcium 40 MG TAB PO SCH (21:23)
[2020-03-05] MEDS: NPH, Human Insulin Isophane 300 UNIT/3 ML VIAL SC SCH ×3 (05:30→20:05)
--- NOTE | 2020-03-05 05:32 | PRG ---
DATE OF SERVICE: 03/04/2020 SUBJECTIVE: The patient was seen and noted with the following vial signs. OBJECTIVE: VITAL SIGNS: Afebrile temperature 98, pulse 70, respiratory rate of 20, O2 saturation of 95%, blood pressure 150/71. HEENT: Unremarkable. CARDIOVASCULAR SYSTEM: First and second heart sounds were heard. RESPIRATORY SYSTEM: Clear to auscultation. DIGESTIVE SYSTEM: Revealed a benign abdomen. Positive bowel sounds. EXTREMITIES: No peripheral edema. SKIN: No new gross rash. LYMPHATICS: No peripheral lymphadenopathy. IMPRESSION: 1. End-stage renal disease, on hemodialysis. 2. Anemia of chronic kidney disease. 3. COVID infection. PLAN: 1. The patient to continue with temporary dialysis catheter for now pending when the long-time tunneled dialysis catheter is placed. That is when patient can safely be transitioned to outpatient . 2. Defer to the [facility] to place permanent dialysis catheter. 3. Further management to be dependent on the clinical course. Job ID: [id number]
[2020-03-05] MEDS: Calcium Carbonate 500 MG ChewTAB PO SCH ×3 (10:01→16:51)
[2020-03-05] MEDS: Zinc Sulfate 220 MG CAP PO SCH (10:01)
[2020-03-05] MEDS: Enoxaparin Sodium 30 MG/0.3 ML SYRINGE SC SCH (10:01)
[2020-03-05] MEDS: NIFEdipine XL 60 MG TAB PO SCH (10:02)
[2020-03-05] MEDS: Cholecalciferol (Vitamin D3) 400 UNITS TAB PO SCH (10:02)
[2020-03-05] MEDS: hydrALAZINE 25 MG TAB PO SCH ×2 (10:02→20:05)
[2020-03-05] MEDS: Carvedilol 25 MG TAB PO SCH ×2 (10:02→20:05)
[2020-03-05] MEDS: Calcitriol 0.25 MCG CAP PO SCH (10:03)
[2020-03-05] MEDS: Thiamine 100 MG TAB PO SCH (10:03)
[2020-03-05] MEDS: Aspirin 81 mg Enteric Coated Tablet PO SCH (10:03)
[2020-03-05] MEDS: Ascorbic Acid 500 mg Chewable Tablet PO SCH (10:20)
[2020-03-05] MEDS: cefTRIAXone\\ROCEPHIN 1 GM in Sodium Chloride 0.9% 100 ML IVPB SCH (10:21)
[2020-03-05] MEDS: Dexamethasone 4 mg/ml Vial SLOW IVP SCH (10:22)
[2020-03-05] MEDS: Iron, Sodium Ferric Gluconate 125 MG in Sodium Chloride 0.9% 100 ML IVPB SCH (12:03)
--- NOTE | 2020-03-05 13:30 | PDOC.HOSPP ---
- Subjective Encounter Date: 03/05/20 Encounter Time: 10:30 Subjective: pt up in bed no complains - Objective Vital Signs & Weight: Vital Signs (12 hours) Temp Pulse Resp BP Pulse Ox 03/05/20 12:06 98.3 F 66 16 151/76 H 97 03/05/20 08:27 98.1 F 67 12 159/77 H 97 03/05/20 04:38 97.8 F 64 14 125/66 97 Weight Admit Weight 229 lb 4.8 oz Weight 223 lb 9.6 oz I&O: 03/04/20 03/05/20 03/06/20 06:59 06:59 06:59 Intake Total 1221.5 931.5 Output Total 400 325 Balance 821.5 606.5 Result Diagrams: 03/04/20 04:15 03/04/20 04:15 Additional Labs: Accuchecks 03/05/20 03/05/20 03/04/20 10:47 04:36 20:31 POC Glucose 236 H 145 H 129 H Hospitalist ROS - Review of Systems Cardiovascular: denies: chest pain, palpitations, orthopnea, paroxysmal noc. dyspnea, edema, light headedness, other Gastrointestinal: denies: nausea, vomiting, abdominal pain, diarrhea, constipation, melena, hematochezia, other Genitourinary: denies: dysuria, frequency, incontinence, hematuria, retention, other - Medication Medications: Active Medications Generic Name Dose Route Start Last Admin Trade Name Freq PRN Reason Stop Dose Admin Ascorbic Acid 500 mg 02/24/20 09:00 03/05/20 10:20 Ascorbic Acid 500 Mg Chewable Tablet PO 500 mg DAILY ELIAS Administration Aspirin 81 mg 02/24/20 09:00 03/05/20 10:03 Aspirin 81 Mg Enteric Coated Tablet PO 81 mg DAILY ELIAS Administration Atorvastatin Calcium 40 mg 02/23/20 21:00 03/04/20 21:23 Atorvastatin Calcium 40 Mg Tab PO 40 mg HS ELIAS Administration Calcitriol 0.25 mcg 02/25/20 09:00 03/05/20 10:03 Calcitriol 0.25 Mcg Cap PO 0.25 mcg DAILY ELIAS Administration Calcium Carbonate 1,000 mg 02/24/20 12:00 03/05/20 12:04 Calcium Carbonate 500 Mg Chewtab PO 1,000 mg TID- ELIAS Administration Carvedilol 25 mg 02/24/20 09:00 03/05/20 10:02 Carvedilol 25 Mg Tab PO 25 mg BID ELIAS Administration Cholecalciferol 400 units 02/24/20 09:00 03/05/20 10:02 Cholecalciferol (Vitamin D3) 400 Units Tab PO 400 units DAILY ELIAS Administration Dexamethasone 6 mg 03/01/20 09:00 03/05/20 10:22 Dexamethasone 4 Mg/Ml Vial SLOW IVP 6 mg DAILY ELIAS Administration Enoxaparin Sodium 30 mg 02/24/20 09:00 03/05/20 10:01 Enoxaparin Sodium 30 Mg/0.3 Ml Syringe SC 30 mg 0900 ELIAS Administration Epoetin Nasim-epbx 10,000 unit 02/24/20 12:00 03/02/20 14:51 Epoetin Nasim-Epbx (Esrd) 10,000 Unit/Ml Vial SC 10,000 unit Q7D ELIAS Administration Heparin Sodium (Porcine) 500 units 02/25/20 19:00 03/02/20 18:27 Heparin 500 Units/5 Ml Flush Syringe IVF 500 unit PRN PRN Administration Heparin Flush Hydralazine HCl 50 mg 02/24/20 09:00 03/05/20 10:02 Hydralazine 25 Mg Tab PO 50 mg BID ELIAS Administration Hydralazine HCl 10 mg 03/01/20 06:14 03/01/20 06:36 Hydralazine 20 Mg/Ml Vial SLOW IVP 10 mg Q4H PRN Administration SBP > 180 Ferric Sodium Gluconate 110 mls @ 110 mls/hr 02/25/20 09:00 03/05/20 12:03 Complex 125 mg/ Sodium IVPB 110 mls Chloride DAILY ELIAS Administration Ceftriaxone Sodium 1 gm/ 100 mls @ 200 mls/hr 02/27/20 08:00 03/05/20 10:21 Sodium Chloride IVPB 100 mls Q24HR ELIAS Administration Insulin Human Lispro 0 units 02/24/20 08:40 03/04/20 05:23 Humalog 300 Units/3 Ml Vial SC 6 unit .AGGRESSIVE SLIDING PRN Administration Aggressive Correctional Scale Insulin Human Lispro 0 units 02/24/20 23:11 02/28/20 20:47 Humalog 300 Units/3 Ml Vial SC 2 unit .BEDTIME SLIDING SC PRN Administration Bedtime Correctional Scale Insulin Human NPH 25 unit 02/27/20 21:00 03/05/20 10:23 Nph, Human Insulin Isophane 300 Unit/3 Ml Vial SC Not Given BID ELIAS Isosorbide Mononitrate 30 mg 02/24/20 09:00 03/05/20 10:03 Isosorbide Mononitrate Er 30 Mg Tab PO 30 mg DAILY ELIAS Administration Labetalol HCl 10 mg 02/28/20 07:53 03/01/20 12:08 Labetalol Hcl 100 Mg/20 Ml Vial SLOW IVP 10 mg Q4H PRN Administration SBP Greater Than 180 Nifedipine 60 mg 02/28/20 09:00 03/05/20 10:02 Nifedipine Xl 60 Mg Tab PO 60 mg DAILY ELIAS Administration Pantoprazole Sodium 40 mg 02/24/20 09:00 03/05/20 10:02 Pantoprazole 40 Mg Tab PO 40 mg DAILY ELIAS Administration Sodium Chloride 10 ml 02/24/20 21:00 03/05/20 10:22 Flush - Normal Saline 10 Ml Syringe IVF 10 ml Q12HR ELIAS Administration Thiamine HCl 100 mg 02/24/20 09:00 03/05/20 10:03 Thiamine 100 Mg Tab PO 100 mg DAILY ELIAS Administration Zinc Sulfate 220 mg 02/24/20 09:00 03/05/20 10:01 Zinc Sulfate 220 Mg Cap PO 220 mg DAILY ELIAS Administration - Exam Heart: negative: RRR, no murmur, no gallops, no rubs, normal peripheral pulses, irregular, diminshed peripheral pulses, murmur present, II/IV, III/IV Respiratory: negative: CTAB, no wheezes, no rales, no ronchi, normal chest expansion, no tachypnea, normal percussion, rales, rhonchi, tachypneic, wheezes Gastrointestinal: negative: soft, non-tender, non-distended, normal bowel sounds, no palpable masses, no hepatomegaly, no splenomegaly, no bruit, no guarding, no rigidity, tender to palpation, distended, diminished bowl sounds, voluntary guarding Extremities: negative: no cyanosis, no clubbing, no edema, 1+ LE edema, 2+ LE edema, clubbing Hosp A/P (1) COVID-19 Code(s): U07.1 - COVID-19 Status: Acute (2) Diabetes type 2, controlled Code(s): E11.9 - TYPE 2 DIABETES MELLITUS WITHOUT COMPLICATIONS Status: Chronic (3) Diabetic nephropathy Status: Chronic (4) Dyslipidemia Code(s): E78.5 - HYPERLIPIDEMIA, UNSPECIFIED Status: Chronic (5) Hypertension Code(s): I10 - ESSENTIAL (PRIMARY) HYPERTENSION Status: Chronic - Plan (1) COVID-19 Code(s): U07.1 - COVID-19 Status: Acute (2) Nephrotic range proteinuria Code(s): R80.9 - PROTEINURIA, UNSPECIFIED Status: Acute (3) CKD (chronic kidney disease) stage 3, GFR 30-59 ml/min Code(s): N18.3 - CHRONIC KIDNEY DISEASE, STAGE 3 (MODERATE) * DO NOT USE * Status: Chronic (4) Diabetes type 2, controlled Code(s): E11.9 - TYPE 2 DIABETES MELLITUS WITHOUT COMPLICATIONS Status: Chronic (5) Diabetic nephropathy Status: Chronic (6) Dyslipidemia Code(s): E78.5 - HYPERLIPIDEMIA, UNSPECIFIED Status: Chronic (7) Hypertension Code(s): I10 - ESSENTIAL (PRIMARY) HYPERTENSION Status: Chronic (8) Obesity (BMI 30-39.9) Code(s): E66.9 - OBESITY, UNSPECIFIED Status: Chronic - Plan Assessment Patient is a 60 year old male with a PMH of HTN, Type II diabetes mellitus with nephropathy, CKD stage III who presented with acute encephalopathy. Please refer to H&P for details. He was found to have acute on chronic CKD stage III, and COVID 19. He has no respiratory sx, or infiltrates on CXR. His mental status is back to baseline, no requirement for supplemental O2. No remdesivir or plasma given. HD access placed on 02/24 and he underwent his first session the next day. He is currently undergoing daily hemodialysis. Otherwise no complications during this hospitalization. He is pending clearance from nephrology. Metabolic encephalopathy COVID 19 Acute on chronic CKD stage III Nephrotic range proteinuria - hx of Metabolic acidosis Elevated troponins Type III diabetes mellitus - A1c 8.5 Hyperlipidemia - LDL 61 UTI PLAN: Case management has been consulted to help secure a chair for outpatient dialysis Patient has been presented choices nearby hemodialysis centers. Continue EPO as per nephrology Continue dexamethasone along with vitamins B1, C, D along with zinc Lovenox subc for DVT ppx Continue NPH and insulin sliding scale for hyperglycemia Continue current blood pressure regimen: Coreg, nifedipine and hydralazine Monitor BP post HD. Strict intake and output Patient can be discharged home once cleared by case hardener and nephrology. 03/02 spoke with nephrology patient will need a tunnel catheter prior to be discharged. We will recheck Covid test. Patient cannot go home with his femoral catheter. 03/03 patient's repeat Covid test was positive. He will need a dialysis catheter before discharge. Otherwise patient is doing well. 03/04 patient currently has no symptoms doing well. Waiting for surgery to put a tunneled catheter prior to discharge. 03/05 pt currently has no symptoms doing well. pt will need tunnel cath prior to discharge.
[2020-03-05] MEDS: HumaLOG 300 UNITS/3 ML VIAL SC PRN (16:52)
--- NOTE | 2020-03-05 18:56 | PRG ---
DATE OF SERVICE: 03/05/2020 SUBJECTIVE: The patient noted to be doing okay with the following vital signs. OBJECTIVE: VITAL SIGNS: Afebrile, temperature 98.9, pulse 69, respiratory rate of 16, O2 saturation of 98%, blood pressure 154/74. HEENT: On admission, unremarkable. CARDIOVASCULAR SYSTEM: First and second heart sounds were heard. RESPIRATORY SYSTEM: Clear to auscultation. DIGESTIVE SYSTEM: Revealed a benign abdomen. Positive bowel sounds. EXTREMITIES: No peripheral edema. SKIN: No new gross rash. LYMPHATICS: No peripheral lymphadenopathy. IMPRESSION: 1. End-stage renal disease, on dialysis. 2. COVID infection. 3. Hypertension. PLAN: 1. The patient is awaiting tunneled dialysis catheter placement for outpatient dialysis placement. Once the patient secures, tunneled dialysis catheter in the outpatient dialysis facility is fully arranged, we will discharge this patient. 2. Further management to be dependent on the clinical course. Job ID: [id number]
[2020-03-05] MEDS: Atorvastatin Calcium 40 MG TAB PO SCH (20:05)
[2020-03-06] MEDS: Cholecalciferol (Vitamin D3) 400 UNITS TAB PO SCH (09:39)
[2020-03-06] MEDS: Calcium Carbonate 500 MG ChewTAB PO SCH ×3 (09:39→17:07)
[2020-03-06] MEDS: hydrALAZINE 25 MG TAB PO SCH ×2 (09:39→21:00)
[2020-03-06] MEDS: Zinc Sulfate 220 MG CAP PO SCH (09:39)
[2020-03-06] MEDS: Aspirin 81 mg Enteric Coated Tablet PO SCH (09:40)
[2020-03-06] MEDS: NIFEdipine XL 60 MG TAB PO SCH (09:40)
[2020-03-06] MEDS: Ascorbic Acid 500 mg Chewable Tablet PO SCH (09:40)
[2020-03-06] MEDS: Calcitriol 0.25 MCG CAP PO SCH (09:40)
[2020-03-06] MEDS: Thiamine 100 MG TAB PO SCH (09:40)
[2020-03-06] MEDS: Carvedilol 25 MG TAB PO SCH ×2 (09:40→21:00)
[2020-03-06] MEDS: Dexamethasone 4 mg/ml Vial SLOW IVP SCH (09:41)
[2020-03-06] MEDS: NPH, Human Insulin Isophane 300 UNIT/3 ML VIAL SC SCH ×2 (09:42→21:00)
[2020-03-06] MEDS: Enoxaparin Sodium 30 MG/0.3 ML SYRINGE SC SCH (09:42)
[2020-03-06] MEDS: cefTRIAXone\\ROCEPHIN 1 GM in Sodium Chloride 0.9% 100 ML IVPB SCH (09:43)
[2020-03-06] MEDS: Iron, Sodium Ferric Gluconate 125 MG in Sodium Chloride 0.9% 100 ML IVPB SCH (11:07)
[2020-03-06] MEDS: HumaLOG 300 UNITS/3 ML VIAL SC PRN ×3 (13:29→21:00)
--- NOTE | 2020-03-06 17:22 | PRG ---
DATE OF SERVICE: 03/06/2020 SUBJECTIVE: The patient was seen and examined, noted with the following vital signs. OBJECTIVE: VITAL SIGNS: Afebrile, temperature 98.3, pulse 66, respiratory rate of 16, O2 saturations of 98%, blood pressure 137/67. HEENT: Unremarkable. CARDIOVASCULAR SYSTEM: First and second heart sounds were heard. RESPIRATORY SYSTEM: Clear to auscultation. DIGESTIVE SYSTEM: Revealed a benign abdomen. Positive bowel sounds. EXTREMITIES: No peripheral edema. SKIN: No new gross rash. LYMPHATICS: No peripheral lymphadenopathy. IMPRESSION: 1. End-stage renal disease, on dialysis. 2. Anemia of chronic kidney disease. 3. COVID pneumonitis. PLAN: 1. The patient is to continue with current schedule of dialysis. 2. Once the patient secures a tunneled dialysis catheter, the patient can be discharged to outpatient facility. 3. Further management to be dependent on the clinical course. Job ID: [id number]
--- NOTE | 2020-03-06 19:14 | PDOC.HOSPP ---
- Subjective Encounter Date: 03/06/20 Encounter Time: 14:00 Subjective: Patient seen in follow-up for COVID-19 infection. He denies any complaints. - Objective Vital Signs & Weight: Vital Signs (12 hours) Temp Pulse Resp BP BP Pulse Ox 03/06/20 17:07 97.9 F 69 14 122/53 L 96 03/06/20 12:00 98.3 F 66 16 137/67 98 03/06/20 09:50 98.3 F 65 16 169/80 H 98 Weight Admit Weight 229 lb 4.8 oz Weight 223 lb 9.6 oz I&O: 03/05/20 03/06/20 03/07/20 06:59 06:59 06:59 Intake Total 931.5 1041.5 Output Total 325 300 Balance 606.5 741.5 Result Diagrams: 03/04/20 04:15 03/04/20 04:15 Additional Labs: Accuchecks 03/06/20 03/06/20 03/06/20 16:40 12:05 05:07 POC Glucose 237 H 175 H 148 H 03/05/20 20:12 POC Glucose 343 H I reviewed patient's labs and MAR Hospitalist ROS - Review of Systems Cardiovascular: denies: chest pain, palpitations, orthopnea, paroxysmal noc. dyspnea, edema, light headedness Gastrointestinal: denies: nausea, vomiting, abdominal pain, diarrhea, constipation, melena, hematochezia - Medication Medications: Active Medications Generic Name Dose Route Start Last Admin Trade Name Donnieq PRN Reason Stop Dose Admin Ascorbic Acid 500 mg 02/24/20 09:00 03/06/20 09:40 Ascorbic Acid 500 Mg Chewable Tablet PO 500 mg DAILY ELIAS Administration Aspirin 81 mg 02/24/20 09:00 03/06/20 09:40 Aspirin 81 Mg Enteric Coated Tablet PO 81 mg DAILY ELIAS Administration Atorvastatin Calcium 40 mg 02/23/20 21:00 03/05/20 20:05 Atorvastatin Calcium 40 Mg Tab PO 40 mg HS ELIAS Administration Calcitriol 0.25 mcg 02/25/20 09:00 03/06/20 09:40 Calcitriol 0.25 Mcg Cap PO 0.25 mcg DAILY ELIAS Administration Calcium Carbonate 1,000 mg 02/24/20 12:00 03/06/20 17:07 Calcium Carbonate 500 Mg Chewtab PO 1,000 mg TID-WM ELIAS Administration Carvedilol 25 mg 02/24/20 09:00 03/06/20 09:40 Carvedilol 25 Mg Tab PO 25 mg BID ELIAS Administration Cholecalciferol 400 units 02/24/20 09:00 03/06/20 09:39 Cholecalciferol (Vitamin D3) 400 Units Tab PO 400 units DAILY ELIAS Administration Dexamethasone 6 mg 03/01/20 09:00 03/06/20 09:41 Dexamethasone 4 Mg/Ml Vial SLOW IVP 6 mg DAILY ELIAS Administration Enoxaparin Sodium 30 mg 02/24/20 09:00 03/06/20 09:42 Enoxaparin Sodium 30 Mg/0.3 Ml Syringe SC 30 mg 0900 ELIAS Administration Epoetin Nasim-epbx 10,000 unit 02/24/20 12:00 03/02/20 14:51 Epoetin Nasim-Epbx (Esrd) 10,000 Unit/Ml Vial SC 10,000 unit Q7D ELIAS Administration Heparin Sodium (Porcine) 500 units 02/25/20 19:00 03/02/20 18:27 Heparin 500 Units/5 Ml Flush Syringe IVF 500 unit PRN PRN Administration Heparin Flush Hydralazine HCl 50 mg 02/24/20 09:00 03/06/20 09:39 Hydralazine 25 Mg Tab PO 50 mg BID ELIAS Administration Hydralazine HCl 10 mg 03/01/20 06:14 03/01/20 06:36 Hydralazine 20 Mg/Ml Vial SLOW IVP 10 mg Q4H PRN Administration SBP > 180 Ferric Sodium Gluconate 110 mls @ 110 mls/hr 02/25/20 09:00 03/06/20 11:07 Complex 125 mg/ Sodium IVPB 110 mls Chloride DAILY ELIAS Administration Ceftriaxone Sodium 1 gm/ 100 mls @ 200 mls/hr 02/27/20 08:00 03/06/20 09:43 Sodium Chloride IVPB 100 mls Q24HR ELIAS Administration Insulin Human Lispro 0 units 02/24/20 08:40 03/06/20 17:07 Humalog 300 Units/3 Ml Vial SC 6 unit .AGGRESSIVE SLIDING PRN Administration Aggressive Correctional Scale Insulin Human Lispro 0 units 02/24/20 23:11 02/28/20 20:47 Humalog 300 Units/3 Ml Vial SC 2 unit .BEDTIME SLIDING SC PRN Administration Bedtime Correctional Scale Insulin Human NPH 25 unit 02/27/20 21:00 03/06/20 09:42 Nph, Human Insulin Isophane 300 Unit/3 Ml Vial SC 25 unit BID ELIAS Administration Isosorbide Mononitrate 30 mg 02/24/20 09:00 03/06/20 09:40 Isosorbide Mononitrate Er 30 Mg Tab PO 30 mg DAILY ELIAS Administration Labetalol HCl 10 mg 02/28/20 07:53 03/01/20 12:08 Labetalol Hcl 100 Mg/20 Ml Vial SLOW IVP 10 mg Q4H PRN Administration SBP Greater Than 180 Nifedipine 60 mg 02/28/20 09:00 03/06/20 09:40 Nifedipine Xl 60 Mg Tab PO 60 mg DAILY ELIAS Administration Pantoprazole Sodium 40 mg 02/24/20 09:00 03/06/20 09:40 Pantoprazole 40 Mg Tab PO 40 mg DAILY ELIAS Administration Sodium Chloride 10 ml 02/24/20 21:00 03/06/20 11:07 Flush - Normal Saline 10 Ml Syringe IVF 10 ml Q12HR ELIAS Administration Thiamine HCl 100 mg 02/24/20 09:00 03/06/20 09:40 Thiamine 100 Mg Tab PO 100 mg DAILY ELIAS Administration Zinc Sulfate 220 mg 02/24/20 09:00 03/06/20 09:39 Zinc Sulfate 220 Mg Cap PO 220 mg DAILY ELIAS Administration - Exam General Appearance: awake alert Eye: anicteric sclera Neck: supple Heart: RRR Respiratory: CTAB Gastrointestinal: soft Skin: no rashes Psychiatric: normal affect Hosp A/P - Plan -Assessment (1) COVID-19 Code(s): U07.1 - COVID-19 Status: Acute (2) Nephrotic range proteinuria Code(s): R80.9 - PROTEINURIA, UNSPECIFIED Status: Acute (3) CKD (chronic kidney disease) stage 3, GFR 30-59 ml/min Code(s): N18.3 - CHRONIC KIDNEY DISEASE, STAGE 3 (MODERATE) * DO NOT USE * Status: Chronic (4) Diabetes type 2, controlled Code(s): E11.9 - TYPE 2 DIABETES MELLITUS WITHOUT COMPLICATIONS Status: Chronic (5) Diabetic nephropathy Status: Chronic (6) Dyslipidemia Code(s): E78.5 - HYPERLIPIDEMIA, UNSPECIFIED Status: Chronic (7) Hypertension Code(s): I10 - ESSENTIAL (PRIMARY) HYPERTENSION Status: Chronic (8) Obesity (BMI 30-39.9) Code(s): E66.9 - OBESITY, UNSPECIFIED Status: Chronic - Plan Assessment Patient is a 60 year old male with a PMH of HTN, 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 Please refer to H&P for details. He was found to have acute on chronic CKD stage III, and COVID 19. He has no respiratory sx, or infiltrates on CXR. His mental status is back to baseline, no requirement for supplemental O2. No remdesivir or plasma given. HD access placed on 02/24 and he underwent his first session the next day. He is currently undergoing daily hemodialysis. Otherwise no complications during this hospitalization. He is pending clearance from nephrology. Continue dexamethasone along with vitamins B1, C, D along with zinc Lovenox subc for DVT ppx Continue NPH and insulin sliding scale for hyperglycemia Continue current blood pressure regimen: Coreg, nifedipine and hydralazine Monitor BP post HD. Strict intake and output Disposition: Patient is awaiting hemodialysis access, which will be done once his deemed free of Covid infection.
[2020-03-06] MEDS: Atorvastatin Calcium 40 MG TAB PO SCH (21:00)
[2020-03-07] MEDS: Cholecalciferol (Vitamin D3) 400 UNITS TAB PO SCH (08:50)
[2020-03-07] MEDS: Carvedilol 25 MG TAB PO SCH ×2 (08:50→20:40)
[2020-03-07] MEDS: hydrALAZINE 25 MG TAB PO SCH ×2 (08:50→20:40)
[2020-03-07] MEDS: Zinc Sulfate 220 MG CAP PO SCH (08:50)
[2020-03-07] MEDS: Thiamine 100 MG TAB PO SCH (08:50)
[2020-03-07] MEDS: Ascorbic Acid 500 mg Chewable Tablet PO SCH (08:50)
[2020-03-07] MEDS: NIFEdipine XL 60 MG TAB PO SCH (08:50)
[2020-03-07] MEDS: Calcium Carbonate 500 MG ChewTAB PO SCH ×3 (08:51→17:31)
[2020-03-07] MEDS: Calcitriol 0.25 MCG CAP PO SCH (08:51)
[2020-03-07] MEDS: Dexamethasone 4 mg/ml Vial SLOW IVP SCH (08:51)
[2020-03-07] MEDS: Aspirin 81 mg Enteric Coated Tablet PO SCH (08:51)
[2020-03-07] MEDS: Enoxaparin Sodium 30 MG/0.3 ML SYRINGE SC SCH (08:51)
[2020-03-07] MEDS: cefTRIAXone\\ROCEPHIN 1 GM in Sodium Chloride 0.9% 100 ML IVPB SCH (08:54)
[2020-03-07 11:44] VITALS: BMI 34.7
[2020-03-07] MEDS: NPH, Human Insulin Isophane 300 UNIT/3 ML VIAL SC SCH ×2 (13:19→20:40)
--- NOTE | 2020-03-07 14:02 | PDOC.HOSPP ---
- Subjective Encounter Date: 03/07/20 Encounter Time: 08:30 Subjective: Patient seen in follow-up for COVID-19 infection. He denies any complaints today. - Objective Vital Signs & Weight: Vital Signs (12 hours) Temp Pulse Resp BP Pulse Ox 03/07/20 12:00 97.6 F 61 16 153/73 H 98 03/07/20 08:00 98.3 F 63 18 178/86 H 97 03/07/20 04:00 98.4 F 68 14 146/69 H 97 Weight Admit Weight 229 lb 4.8 oz Weight 228 lb 9.91 oz I&O: 03/06/20 03/07/20 03/08/20 06:59 06:59 06:59 Intake Total 1041.5 1220 Output Total 300 450 725 Balance 741.5 770 -725 Result Diagrams: 03/04/20 04:15 03/04/20 04:15 Additional Labs: Accuchecks 03/07/20 03/07/20 03/06/20 11:07 05:57 21:04 POC Glucose 105 H 81 220 H 03/06/20 03/06/20 20:13 16:40 POC Glucose 226 H 237 H Labs and MAR reviewed by wi Hospitalist ROS - Review of Systems Respiratory: denies: cough, shortness of breath, SOB with excertion, pleuritic pain, wheezing Genitourinary: denies: dysuria, frequency, incontinence, hematuria, retention Skin: denies: rash, lesions, virgilio, bruising - Medication Medications: Active Medications Generic Name Dose Route Start Last Admin Trade Name Herve PRN Reason Stop Dose Admin Ascorbic Acid 500 mg 02/24/20 09:00 03/07/20 08:50 Ascorbic Acid 500 Mg Chewable Tablet PO 500 mg DAILY ELIAS Administration Aspirin 81 mg 02/24/20 09:00 03/07/20 08:51 Aspirin 81 Mg Enteric Coated Tablet PO 81 mg DAILY ELIAS Administration Atorvastatin Calcium 40 mg 02/23/20 21:00 03/06/20 21:00 Atorvastatin Calcium 40 Mg Tab PO 40 mg HS ELIAS Administration Calcitriol 0.25 mcg 02/25/20 09:00 03/07/20 08:51 Calcitriol 0.25 Mcg Cap PO 0.25 mcg DAILY ELIAS Administration Calcium Carbonate 1,000 mg 02/24/20 12:00 03/07/20 13:28 Calcium Carbonate 500 Mg Chewtab PO 1,000 mg TID-WM ELIAS Administration Carvedilol 25 mg 02/24/20 09:00 03/07/20 08:50 Carvedilol 25 Mg Tab PO 25 mg BID ELIAS Administration Cholecalciferol 400 units 02/24/20 09:00 03/07/20 08:50 Cholecalciferol (Vitamin D3) 400 Units Tab PO 400 units DAILY ELIAS Administration Dexamethasone 6 mg 03/01/20 09:00 03/07/20 08:51 Dexamethasone 4 Mg/Ml Vial SLOW IVP 6 mg DAILY ELIAS Administration Enoxaparin Sodium 30 mg 02/24/20 09:00 03/07/20 08:51 Enoxaparin Sodium 30 Mg/0.3 Ml Syringe SC 30 mg 0900 ELIAS Administration Epoetin Nasim-epbx 10,000 unit 02/24/20 12:00 03/02/20 14:51 Epoetin Nasim-Epbx (Esrd) 10,000 Unit/Ml Vial SC 10,000 unit Q7D ELIAS Administration Heparin Sodium (Porcine) 500 units 02/25/20 19:00 03/02/20 18:27 Heparin 500 Units/5 Ml Flush Syringe IVF 500 unit PRN PRN Administration Heparin Flush Hydralazine HCl 50 mg 02/24/20 09:00 03/07/20 08:50 Hydralazine 25 Mg Tab PO 50 mg BID ELIAS Administration Hydralazine HCl 10 mg 03/01/20 06:14 03/01/20 06:36 Hydralazine 20 Mg/Ml Vial SLOW IVP 10 mg Q4H PRN Administration SBP > 180 Ferric Sodium Gluconate 110 mls @ 110 mls/hr 02/25/20 09:00 03/06/20 11:07 Complex 125 mg/ Sodium IVPB 110 mls Chloride DAILY ELIAS Administration Ceftriaxone Sodium 1 gm/ 100 mls @ 200 mls/hr 02/27/20 08:00 03/07/20 08:54 Sodium Chloride IVPB 100 mls Q24HR ELIAS Administration Insulin Human Lispro 0 units 02/24/20 08:40 03/06/20 17:07 Humalog 300 Units/3 Ml Vial SC 6 unit .AGGRESSIVE SLIDING PRN Administration Aggressive Correctional Scale Insulin Human Lispro 0 units 02/24/20 23:11 03/06/20 21:00 Humalog 300 Units/3 Ml Vial SC 2 unit .BEDTIME SLIDING SC PRN Administration Bedtime Correctional Scale Insulin Human NPH 25 unit 02/27/20 21:00 03/07/20 13:19 Nph, Human Insulin Isophane 300 Unit/3 Ml Vial SC Not Given BID ELIAS Isosorbide Mononitrate 30 mg 02/24/20 09:00 03/07/20 08:50 Isosorbide Mononitrate Er 30 Mg Tab PO 30 mg DAILY ELIAS Administration Labetalol HCl 10 mg 02/28/20 07:53 03/01/20 12:08 Labetalol Hcl 100 Mg/20 Ml Vial SLOW IVP 10 mg Q4H PRN Administration SBP Greater Than 180 Nifedipine 60 mg 02/28/20 09:00 03/07/20 08:50 Nifedipine Xl 60 Mg Tab PO 60 mg DAILY ELIAS Administration Pantoprazole Sodium 40 mg 02/24/20 09:00 03/07/20 08:51 Pantoprazole 40 Mg Tab PO 40 mg DAILY ELIAS Administration Sodium Chloride 10 ml 02/24/20 21:00 03/07/20 09:06 Flush - Normal Saline 10 Ml Syringe IVF 10 ml Q12HR ELIAS Administration Thiamine HCl 100 mg 02/24/20 09:00 03/07/20 08:50 Thiamine 100 Mg Tab PO 100 mg DAILY ELIAS Administration Zinc Sulfate 220 mg 02/24/20 09:00 03/07/20 08:50 Zinc Sulfate 220 Mg Cap PO 220 mg DAILY ELIAS Administration Hospitalist Exam Vitals: Vital Signs (12 hours) Temp Pulse Resp BP Pulse Ox 03/07/20 12:00 97.6 F 61 16 153/73 H 98 03/07/20 08:00 98.3 F 63 18 178/86 H 97 03/07/20 04:00 98.4 F 68 14 146/69 H 97 Weight Admit Weight 229 lb 4.8 oz Weight 228 lb 9.91 oz General Appearance: awake alert Eye: PERRL ENT: normocephalic atraumatic Neck: supple Heart: RRR Respiratory: CTAB Gastrointestinal: soft Extremities: no cyanosis Skin: no rashes Psychiatric: normal affect, normal behavior Hosp A/P - Plan -Assessment (1) COVID-19 Code(s): U07.1 - COVID-19 Status: Acute (2) Nephrotic range proteinuria Code(s): R80.9 - PROTEINURIA, UNSPECIFIED Status: Acute (3) CKD (chronic kidney disease) stage 3, GFR 30-59 ml/min Code(s): N18.3 - CHRONIC KIDNEY DISEASE, STAGE 3 (MODERATE) * DO NOT USE * Status: Chronic (4) Diabetes type 2, controlled Code(s): E11.9 - TYPE 2 DIABETES MELLITUS WITHOUT COMPLICATIONS Status: Chronic (5) Diabetic nephropathy Status: Chronic (6) Dyslipidemia Code(s): E78.5 - HYPERLIPIDEMIA, UNSPECIFIED Status: Chronic (7) Hypertension Code(s): I10 - ESSENTIAL (PRIMARY) HYPERTENSION Status: Chronic (8) Obesity (BMI 30-39.9) Code(s): E66.9 - OBESITY, UNSPECIFIED Status: Chronic - Plan Assessment Patient is a 60 year old male with a PMH of HTN, Type II diabetes mellitus with nephropathy, CKD stage III who presented with acute encephalopathy. Please refer to H&P for details. He was found to have acute on chronic CKD stage III, and COVID 19. He has no respiratory sx, or infiltrates on CXR. His mental status is back to baseline, no requirement for supplemental O2. No remdesivir or plasma given. HD access placed on 02/24 and he underwent his first session the next day. He is currently undergoing daily hemodialysis. Otherwise no complications during this hospitalization. He is pending clearance from nephrology. Discontinue dexamethasone. Discontinue Covid 19 precautions Continue NPH and insulin sliding scale for hyperglycemia Continue current blood pressure regimen: Coreg, nifedipine and hydralazine Patient is awaiting hemodialysis access.
[2020-03-07] MEDS: Iron, Sodium Ferric Gluconate 125 MG in Sodium Chloride 0.9% 100 ML IVPB SCH (14:23)
[2020-03-07] MEDS ORDERED: CEFAZOLIN 2 GM in Premix Bag 1 BAG IVPB SCH (15:15)
--- NOTE | 2020-03-07 17:04 | ULT ---
PREDIALYSIS ACCESS DUPLEX EXAMINATION: 03/07/20 INDICATIONS: End-stage renal disease. FINDINGS: RIGHT UPPER EXTREMITY BRACHIAL ARTERY: 6.5 mm RADIAL ARTERY: 3.4 mm ULNAR ARTERY: 3.4 mm CEPHALIC VEIN Proximal Arm: 3.3 mm Mid Arm: 3.8 mm Distal Arm: 5.0 mm Antecubital Fossa: 5.6 mm Proximal Forearm: 2.4 mm Mid Forearm: 2.3 mm Distal Forearm: 2.0 mm BASILIC VEIN Proximal Arm: 3.6 mm Mid Arm: 3.7 mm Distal Arm: 3.5 mm Antecubital Fossa: 2.8 mm Proximal Forearm: 1.6 mm Mid Forearm: 1.2 mm Distal Forearm: 1.2 mm LEFT UPPER EXTREMITY BRACHIAL ARTERY: 6.3 mm RADIAL ARTERY: 3.8 mm ULNAR ARTERY: 3.0 mm CEPHALIC VEIN Proximal Arm: 2.1 mm Mid Arm: 2.2 mm Distal Arm: 1.7 mm Antecubital Fossa: 2.1 mm Proximal Forearm: 2.7 mm Mid Forearm: 2.4 mm Distal Forearm: 1.1 mm BASILIC VEIN Proximal Arm: 3.0 mm Mid Arm: 3.3 mm Distal Arm: 3.1 mm Antecubital Fossa: 2.4 mm Proximal Forearm: 1.2 mm Mid Forearm: 1.1 mm Distal Forearm: 1.0 mm IMPRESSION: Predialysis access duplex examination with sizes as above. POS: BETHANY
--- NOTE | 2020-03-07 17:18 | PRG ---
DATE OF SERVICE: 03/07/2020 OBJECTIVE: VITAL SIGNS: The patient noted with the following vital signs; afebrile, temperature 97.6, pulse 61, respiratory rate of 16, O2 saturations of 98%, blood pressure 163/73. HEENT: Unremarkable. CARDIOVASCULAR SYSTEM: First and second heart sounds were heard. RESPIRATORY SYSTEM: Clear to auscultation. DIGESTIVE SYSTEM: Revealed a benign abdomen with positive bowel sounds. EXTREMITIES: No peripheral edema. SKIN: No new gross rash. LYMPHATICS: No peripheral lymphadenopathy. IMPRESSION: 1. End-stage renal disease, on hemodialysis. 2. COVID pneumonitis. 3. Hypertension. PLAN: The patient seems to be coming off the COVID precaution, therefore will be a candidate for tunneled dialysis catheter placement now. Once tunneled dialysis catheter placement is done, the patient from the renal standpoint is good for discharge to continue with outpatient dialysis treatment. Job ID: [id number]
[2020-03-07] MEDS: Atorvastatin Calcium 40 MG TAB PO SCH (20:40)
[2020-03-08] MEDS ORDERED: Bupivacaine HCl 0.5%/Epinephrine 1:200,000/PF 30 ml Vial ONE (09:11)
[2020-03-08] MEDS ORDERED: PHENYLEPHRINE-NS 100 MCG/ML 10 ML SYRINGE ONE (09:11)
[2020-03-08] MEDS ORDERED: PROPOFOL 200 MG/20 ML VIAL ONE (09:11)
[2020-03-08] MEDS ORDERED: Ondansetron PF 4 MG/2 ML Vial ONE (09:11)
[2020-03-08] MEDS ORDERED: Dexamethasone 20 MG/5 ML VIAL ONE (09:11)
[2020-03-08] MEDS: hydrALAZINE 25 MG TAB PO SCH (09:26)
[2020-03-08] MEDS: Cholecalciferol (Vitamin D3) 400 UNITS TAB PO SCH (09:26)
[2020-03-08] MEDS: Calcium Carbonate 500 MG ChewTAB PO SCH ×3 (09:27→16:08)
[2020-03-08] MEDS: Zinc Sulfate 220 MG CAP PO SCH (09:27)
[2020-03-08] MEDS: Ascorbic Acid 500 mg Chewable Tablet PO SCH (09:27)
[2020-03-08] MEDS: Aspirin 81 mg Enteric Coated Tablet PO SCH (09:27)
[2020-03-08] MEDS: Carvedilol 25 MG TAB PO SCH (09:27)
[2020-03-08] MEDS: Calcitriol 0.25 MCG CAP PO SCH (09:27)
[2020-03-08] MEDS: NIFEdipine XL 60 MG TAB PO SCH (09:27)
[2020-03-08] MEDS: Thiamine 100 MG TAB PO SCH (09:27)
[2020-03-08] MEDS: Enoxaparin Sodium 30 MG/0.3 ML SYRINGE SC SCH (09:30)
[2020-03-08] MEDS: NPH, Human Insulin Isophane 300 UNIT/3 ML VIAL SC SCH (09:31)
[2020-03-08] MEDS: cefTRIAXone\\ROCEPHIN 1 GM in Sodium Chloride 0.9% 100 ML IVPB SCH (10:18)
[2020-03-08] MEDS: Iron, Sodium Ferric Gluconate 125 MG in Sodium Chloride 0.9% 100 ML IVPB SCH (11:03)
[2020-03-08] MEDS ORDERED: Propofol 500 MG/50 ML VIAL ONE (11:59)
[2020-03-08] MEDS ORDERED: Heparin 5,000 UNITS/ML VIAL ONE (12:17)
[2020-03-08] MEDS ORDERED: Protamine Sulfate 50 MG/5 ML VIAL ONE (12:17)
[2020-03-08] MEDS ORDERED: XYLOCAINE 2%-EPI 1:100,000 20 ML VIAL ONE (12:17)
[2020-03-08] MEDS ORDERED: Heparin 10,000 UNITS/ 10 ML VIAL ONE (12:17)
[2020-03-08] MEDS ORDERED: Bupivacaine PF 0.5% 30 ML VIAL ONE (12:17)
[2020-03-08] MEDS ORDERED: Sodium Chloride 0.9% 30 ML ONE (12:18)
[2020-03-08] MEDS ORDERED: Fentanyl 100 MCG/2 ML VIAL ONE (13:26)
--- NOTE | 2020-03-08 14:01 | PDOC.DS.DS ---
Provider Date of Admission: 02/23/20 13:33 Date of Discharge: 03/08/20 Admitting Provider: Prince Marko Hensley MD Consultations: General Surgery (Dr. Harrison), Nephrology (Dr. Fulton) Primary Care Physician: MARY ALICE PCP PROVIDER Course Hospital Course: Discharge diagnosis: 1. Acute metabolic encephalopathy 2. COVID-19 infection 3. End-stage renal disease needing dialysis 4. Metabolic acidosis 5. Non-ST elevation myocardial infarction type II 6. Hyponatremia Hospital course: Patient is a pleasant 60-year-old gentleman who was admitted to the hospital on February 23, 2020 for acute metabolic encephalopathy and COVID-19 infection. He received dexamethasone, vitamin C, vitamin D and zinc. He was not hypoxic. He improved clinically. He also had acute on chronic stage III renal failure and needed dialysis. He was seen by nephrology service and underwent dialysis. After discontinuation of COVID-19 precautions, he is scheduled to undergo tunneled dialysis catheter placement prior to discharge. He already has a dialysis chair arranged. Many thanks for allowing me to participate in your patient's care. Please feel free to contact me with any questions or concerns. Discharge destination: Home Total amount of time spent coordinating this discharge: 32 minutes Lab Results: 03/04/20 04:15 03/04/20 04:15 Microbiology - Entire Visit 02/23/20 12:15 Venous blood - Left Hand Blood Culture - Final NO GROWTH IN 5 DAYS 02/23/20 11:41 Venous blood - Left Arm Blood Culture - Final NO GROWTH IN 5 DAYS 02/24/20 05:40 Urine clean catch Urine Culture - Final NO GROWTH AT 48 HOURS Vitals: Vital Signs (12 hours) Temp Pulse Resp BP Pulse Ox 03/08/20 12:00 98.3 F 69 19 128/79 98 03/08/20 09:27 69 03/08/20 09:26 69 03/08/20 08:00 98.2 F 68 19 159/73 H 97 03/08/20 04:15 98.4 F 69 16 127/67 98 Weight Admit Weight 229 lb 4.8 oz Weight 221 lb 5.506 oz Physical Exam: The patient was seen and examined on the day of discharge. Patient denies chest pain or shortness of breath. Vital signs are stable. S1 and S2 are heard. Lungs are clear to auscultation bilaterally. Plan Home Medications: Medication Instructions Recorded Confirmed Type Amlodipine Besylate [amLODIPine 10 mg PO DAILY 02/20/18 02/23/20 History Besylate] Carvedilol 25 mg PO BID 02/20/18 02/23/20 History Glyburide/Metformin HCl 2 tablet PO BID-WM 02/20/18 02/23/20 History [glyBURIDE/metFORMIN] Insulin Glargine,Hum.Rec.Anlog 50 units SC HS 02/20/18 02/23/20 History [Lantus] Simvastatin [Zocor] 20 mg PO HS 02/20/18 02/23/20 History Aspirin 325 mg PO DAILY #30 tab 02/23/18 02/23/20 Rx Ferrous Sulfate [Feosol] 325 mg PO QA- #30 tab 02/23/18 02/23/20 Rx Furosemide [Lasix] 40 mg PO BID #60 tab 02/23/18 02/23/20 Rx Isosorbide Mononitrate [Imdur ER] 30 mg PO DAILY #30 tab 02/23/18 02/23/20 Rx hydrALAZINE HCl [Hydralazine HCl] 50 mg PO BID #60 tablet 02/23/18 02/23/20 Rx Famotidine [Pepcid] 40 mg PO QAM 02/23/20 02/23/20 History Lisinopril [Zestril] 1 tab PO DAILY 02/23/20 02/23/20 History Allergies: No Known Allergies Allergy (Verified 02/23/20 17:03) Discharge Instructions:: Approved for outpatient dialysis with [facility] at [address] [place] [address] , , Sa schedule at 5 pm Appt 03/09/20 at 4:45 Referrals: PROVIDER,NO PCP [Primary Care Provider] - 3 Days Disposition: HOME Quality CORE MEASURES:: N/A
[2020-03-08] MEDS ORDERED: traMADol HCl 50 MG TAB PO PRN (14:05)
[2020-03-08] MEDS ORDERED: Acetaminophen 500 MG TAB PO PRN (14:05)
--- NOTE | 2020-03-08 15:31 | RAD ---
Exam: Chest one view HISTORY:Central line placement Comparison: 03/11/2020 FINDINGS: Cardiac silhouette:Body megaly. Aorta: Unremarkable Pulmonary vessels: Normal Costophrenic angles: Clear LUNGS: Diminished due to poor inspiratory effort. Accentuation interstitial is present. Superimposed edema cannot be excluded Lines: Interval placement of right-sided HemoSplit osseous catheter with the distal tip projecting ov er the expected region superior vena cava. Pneumothorax: None Osseous abnormalities: None IMPRESSION: Right-sided HemoSplit osseous catheter placement as above. No pneumothorax
[2020-03-08 15:58] VITALS: BP 133/64
[2020-03-08 16:08] VITALS: TEMP 98.7
--- NOTE | 2020-03-08 16:13 | PRG ---
DATE OF SERVICE: 03/08/2020 OBJECTIVE: VITAL SIGNS: The patient is noted with the following vital signs. Afebrile, hemodynamically stable. HEENT: Unremarkable. CARDIOVASCULAR SYSTEM: First and second heart sounds were heard. RESPIRATORY SYSTEM: Clear to auscultation. DIGESTIVE SYSTEM: Revealed a benign abdomen. EXTREMITIES: No peripheral edema. SKIN: No new gross rash. LYMPHATICS: No peripheral lymphadenopathy. IMPRESSION: 1. End-stage renal disease, hemodialysis dependent. 2. COVID pneumonitis. 3. Anemia of chronic kidney disease. PLAN: 1. The patient to secure tunneled dialysis catheter today, after which the patient can be discharged any time once the outpatient dialysis facility is going to finalize. 2. Further management to be dependent on the clinical course. Job ID: [id number]
--- NOTE | 2020-03-08 20:51 | OP ---
DATE OF PROCEDURE: 03/08/2020 PREOPERATIVE DIAGNOSIS: End-stage renal disease. POSTOPERATIVE DIAGNOSIS: End-stage renal disease. PROCEDURES PERFORMED: Right IJ cuffed tunneled hemodialysis catheter, ultrasound and fluoroscopy used. Right arm primary fistula, antecubital vein to proximal radial artery, outflow primary cephalic vein. ANESTHESIA: Regional, TIVA. DESCRIPTION OF PROCEDURE: The patient was taken to the operating room, where under regional right arm anesthesia and intravenous sedation, neck and chest and right upper extremity were prepared with ChloraPrep and draped in routine fashion. Ultrasound guidance was used to cannulate right internal jugular vein. Trocar catheter introduced, J-wire threaded, trocar catheter removed. Skin incision site enlarged sharply. Stab incision made over the right chest. Tunneling device used to tunnel the pre-curved Ang[employer] hemodialysis catheter between 2 incisions, placed the fabric cuff beneath the skin exit site. Catheter secured with 2 interrupted sutures of 3-0 nylon. Sterile dressing applied. Small and medium size dilators placed over the J-wire in the internal jugular vein and removed. Dilator and Peel-Away sheath placed over the J-wire in the superior vena cava, and dilator and J-wire removed. Catheter placed over the Peel-Away sheath. Peel-Away sheath removed. Platysma was approximated with 4-0 Monocryl, skin with subdermal 4-0 Monocryl and [place] glue applied. Fluoroscopic images revealed good line placement. Each port aspirated of blood, flushed with heparinized saline solution, 1000 units heparin per mL, indicating volume of the port. Attention was then turned to the right arm. Proximal volar forearm incision was made longitudinally below the antecubital fossa, carried down through skin and subcutaneous tissue, and an excellent antecubital cephalic vein identified and perforating branch was small and ligated with 4-0 silk tie. The patient was given 6000 units of heparin intravenously. Cephalic vein on the forearm side was dissected free. Branches divided between clips and 4-0 and 3-0 silk ties, spatulated over branch point and it was of excellent caliber. Proximal radial artery clamped proximally and distally, and after adequate circulation time, 6000 units of heparin intravenously administered. Proximal radial artery clamped proximally and distally, and longitudinal arteriotomy made sharply, elongated with Asher scissors, and an end vein to side proximal radial artery anastomosis created with continuous suture of 6-0 Prolene, completing the anastomosis, releasing the vascular clamps, noting good Doppler signals in cephalic vein upper arm outflow. The patient tolerated the procedure well. The patient was given 25 mg of protamine intravenously by Anesthesia. Subcutaneous tissue was approximated with 3-0 Monocryl, skin with subdermal 4-0 Monocryl, and [place] glue applied. Job ID: [id number]
== END 2020-03-08 18:35 | disposition home or self-care (01) | DRG 871 ==
LOC: ERS 11:11 → 2SW 13:33
PROVIDERS: ADMIT Internal Medicine; ATTEND Internal Medicine
PROC: 8E0ZXY6 Isolation (ICD-10-PCS; principal; 2020-02-23)
PROC: 06HY33Z Insertion of Infusion Device into Lower Vein, Percutaneous Approach (ICD-10-PCS; 2020-02-25)
PROC: 5A1D70Z Performance of Urinary Filtration, Intermittent, Less than 6 Hours Per Day (ICD-10-PCS; 2020-02-26)
PROC: 5A1D70Z Performance of Urinary Filtration, Intermittent, Less than 6 Hours Per Day (ICD-10-PCS; 2020-02-27)
PROC: 5A1D70Z Performance of Urinary Filtration, Intermittent, Less than 6 Hours Per Day (ICD-10-PCS; 2020-02-28)
PROC: 5A1D70Z Performance of Urinary Filtration, Intermittent, Less than 6 Hours Per Day (ICD-10-PCS; 2020-02-29)
PROC: 5A1D70Z Performance of Urinary Filtration, Intermittent, Less than 6 Hours Per Day (ICD-10-PCS; 2020-03-04)
PROC: 5A1D70Z Performance of Urinary Filtration, Intermittent, Less than 6 Hours Per Day (ICD-10-PCS; 2020-03-07)
PROC: 0JH63XZ Insertion of Tunneled Vascular Access Device into Chest Subcutaneous Tissue and Fascia, Percutaneous Approach (ICD-10-PCS; 2020-03-08)
PROC: 02HV33Z Insertion of Infusion Device into Superior Vena Cava, Percutaneous Approach (ICD-10-PCS; 2020-03-08)
DX: A41.89 Other specified sepsis (principal); U07.1 COVID-19; G93.41 Metabolic encephalopathy; J12.82 Pneumonia due to coronavirus disease 2019; I21.A1 Myocardial infarction type 2; N18.6 End stage renal disease; N17.9 Acute kidney failure, unspecified; E87.2 Acidosis; E87.1 Hypo-osmolality and hyponatremia; I12.0 Hypertensive chronic kidney disease with stage 5 chronic kidney disease or end stage renal disease; N39.0 Urinary tract infection, site not specified; E78.5 Hyperlipidemia, unspecified; E78.00 Pure hypercholesterolemia, unspecified; I25.10 Atherosclerotic heart disease of native coronary artery without angina pectoris; R80.9 Proteinuria, unspecified; E11.22 Type 2 diabetes mellitus with diabetic chronic kidney disease; N18.30 Chronic kidney disease, stage 3 unspecified; E11.65 Type 2 diabetes mellitus with hyperglycemia; E21.3 Hyperparathyroidism, unspecified; E66.9 Obesity, unspecified; E11.21 Type 2 diabetes mellitus with diabetic nephropathy; D63.1 Anemia in chronic kidney disease; E83.39 Other disorders of phosphorus metabolism; E83.51 Hypocalcemia; Z68.33 Body mass index [BMI] 33.0-33.9, adult; Z79.4 Long term (current) use of insulin; Z79.82 Long term (current) use of aspirin; Z79.899 Other long term (current) drug therapy
CPT/HCPCS: 0240U; 36415; 36416; 70450; 71045; 76770; 80048; 80053; 80061; 80069; 81001; 82553; 82570; 82728; 83036; 83540; 83550; 83605; 83735; 83880; 83970; 84100; 84156; 84484; 85025; 86140; 86704; 86706; 86803; 87040; 87086; 87340; 87635; 90935; 93005; 93970; C1752; G0257; J0360; J0690; J0696; J1100; J1642; J1644; J1650; J1815; J2405; J2704; J2720; J2916; J3010; J3490; Q5105; S0020; U0003; U0005

== ENCOUNTER 2020-05-06 10:26 | Observation (INO) | payer SELFPAY ==
[2020-05-06 11:01] LABS: #Basophils 0.1 thou/uL (0.0-0.2); #Eosinphils 0.2 thou/uL (0.0-0.7); #Lymphocytes 1.5 thou/uL (1.20-3.40); #Monocytes 0.5 thou/uL (0.11-0.59); #Neutrophils 4.1 thou/uL (1.40-6.50); %Basophils 0.8 % (0.0-1.0); %Eosinophils 3.3 % (0.0-10.0); %Lymphocytes 23.9 % (21.0-51.0); %Monocytes 7.6 % (0.0-10.0); %Neutrophils 64.4 % (42.0-75.0); Hemoglobin 11.3 g/dL (14.0-18.0); Mean Corpuscular HGB CONC 32.9 g/dL (32.0-36.0); Mean Corpuscular Hemoglobin 32.2 pg (27.0-31.0); Mean Corpuscular Volume 97.9 fL (78.0-98.0); Platelet Count 275 thou/uL (130-400); RBC Distribution Width 14.5 % (11.5-14.5); Red Blood Cell (RBC) Count 3.51 mill/uL (4.70-6.10); White Blood Cell (WBC) Count 6.4 thou/uL (4.8-10.8)
[2020-05-06 11:24] LABS: ALT (SGPT) 27 U/L (8-55); AST (SGOT) 25 U/L (5-34); Albumin 4.1 g/dL (3.5-5.0); Alkaline Phosphatase 75 U/L (40-110); Anion Gap 14 mmol/L (10-20); BUN (Urea Nitrogen) 14 mg/dL (8.4-25.7); Bilirubin, Total 0.8 mg/dL (0.2-1.2); Calc. Creatinine Clearance 0 mL/min (70-130); Calcium 9.4 mg/dL (7.8-10.44); Carbon Dioxide 31 mmol/L (22-29); Chloride 101 mmol/L (98-107); Globulin 3.1 g/dL (2.4-3.5); Glucose 104 mg/dL (70-105); Magnesium 1.8 mg/dL (1.6-2.6); Potassium 3.6 mmol/L (3.5-5.1); Protein, Total 7.2 g/dL (6.0-8.3); Sodium 142 mmol/L (136-145)
[2020-05-06] MEDS ORDERED: Aspirin Chewable 81 MG TAB ONE (13:05)
[2020-05-06] MEDS ORDERED: GUAIFENESIN SF SOLN 200 MG/10 ML UDCUP PO PRN (14:36)
[2020-05-06] MEDS ORDERED: Ondansetron ODT 4 MG TAB PO PRN (14:36)
[2020-05-06] MEDS ORDERED: Calcium Carbonate 500 MG ChewTAB PO PRN (14:36)
[2020-05-06] MEDS ORDERED: Ondansetron PF 4 MG/2 ML Vial IVP PRN (14:36)
[2020-05-06] MEDS ORDERED: Guaifenesin DM 100-10/5 ML UDCUP PO PRN (14:36)
[2020-05-06] MEDS ORDERED: Acetaminophen 325 MG TAB PO PRN (14:36)
[2020-05-06] MEDS ORDERED: HYDROcodone/Acetaminophen 5/325 mg Tablet PO PRN (14:36)
[2020-05-06] MEDS ORDERED: Sodium Chloride 0.65% Nasal 44 ML BOT EA NARE PRN (14:36)
[2020-05-06] MEDS ORDERED: hydrALAZINE 20 MG/ML VIAL SLOW IVP PRN (14:36)
[2020-05-06] MEDS ORDERED: Nitroglycerin 0.4 MG TAB (25 Tab Bottle) SL PRN (14:36)
[2020-05-06] MEDS ORDERED: Bisacodyl 10 MG SUPP PR PRN (14:36)
[2020-05-06] MEDS ORDERED: Dextrose 50% Abboject 50 ML SYRINGE SLOW IVP PRN (14:36)
[2020-05-06] MEDS ORDERED: Benzonatate 100 MG CAP PO PRN (14:36)
[2020-05-06] MEDS ORDERED: Loperamide HCl 2 MG CAP PO PRN (14:36)
[2020-05-06] MEDS ORDERED: Senokot S 8.6-50 MG TAB PO PRN (14:36)
[2020-05-06] MEDS ORDERED: Dextrose 5% in Water 1,000 ML IV PRN (14:36)
[2020-05-06] MEDS ORDERED: Zolpidem Tartrate 5 MG TAB PO PRN (14:36)
[2020-05-06] MEDS ORDERED: HumaLOG 300 UNITS/3 ML VIAL SC PRN ×2 (14:36)
[2020-05-06] MEDS ORDERED: Cepastat Lozenges 1 LOZ PO PRN (14:36)
[2020-05-06] MEDS ORDERED: Loratadine 10 MG TAB PO PRN (14:36)
[2020-05-06 14:54] VITALS: BMI 32.6
[2020-05-06] MEDS: hydrALAZINE 25 MG TAB PO SCH (20:07)
[2020-05-06] MEDS: Carvedilol 25 MG TAB PO SCH (20:08)
[2020-05-06] MEDS ORDERED: Lantus 1000 UNITS/10 ML VIAL SC SCH (21:00)
[2020-05-06] MEDS ORDERED: Atorvastatin Calcium 10 MG TAB PO SCH (21:00)
[2020-05-06] MEDS: Lantus 1000 UNITS/10 ML VIAL SC SCH (21:01)
[2020-05-07 05:49] LABS: #Eosinphils 0.3 thou/uL (0.0-0.7); #Lymphocytes 1.6 thou/uL (1.20-3.40); #Monocytes 0.6 thou/uL (0.11-0.59); #Neutrophils 2.5 thou/uL (1.40-6.50); %Basophils 0.9 % (0.0-1.0); %Monocytes 12.5 % (0.0-10.0); %Neutrophils 48.6 % (42.0-75.0); Hemoglobin 10.5 g/dL (14.0-18.0); Mean Corpuscular HGB CONC 33.5 g/dL (32.0-36.0); Mean Corpuscular Volume 98.4 fL (78.0-98.0); Mean Platelet Volume 7.6 fL (7.4-10.4); Platelet Count 247 thou/uL (130-400); RBC Distribution Width 14.3 % (11.5-14.5); Red Blood Cell (RBC) Count 3.19 mill/uL (4.70-6.10)
[2020-05-07 06:18] LABS: Anion Gap 12 mmol/L (10-20); BUN (Urea Nitrogen) 23 mg/dL (8.4-25.7); Calc. Creatinine Clearance 26 mL/min (70-130); Carbon Dioxide 28 mmol/L (22-29); Chloride 99 mmol/L (98-107); Potassium 3.2 mmol/L (3.5-5.1); Sodium 136 mmol/L (136-145)
[2020-05-07 06:19] LABS: ALT (SGPT) 22 U/L (8-55); AST (SGOT) 18 U/L (5-34); Albumin 3.5 g/dL (3.5-5.0); Alkaline Phosphatase 68 U/L (40-110); Bilirubin, Total 0.6 mg/dL (0.2-1.2); Calcium 8.7 mg/dL (7.8-10.44); Cardiac Risk 3.8 (Less than 4.5); Cholesterol 145 mg/dl (< 200 Desired); Globulin 2.7 g/dL (2.4-3.5); Glucose 243 mg/dL (70-105); HDL Cholesterol 38 mg/dL (>60 Neg Risk); LDL Cholesterol, Calculated 74 mg/dL; Protein, Total 6.2 g/dL (6.0-8.3); Triglycerides 166 mg/dL (Less than 150)
[2020-05-07] MEDS ORDERED: Ferrous Sulfate 325 MG TAB PO SCH (08:00)
[2020-05-07] MEDS ORDERED: Aspirin 81 mg Enteric Coated Tablet PO SCH (09:00)
[2020-05-07] MEDS ORDERED: Folic Acid/Vit B Comp W-C PO SCH (09:00)
[2020-05-07] MEDS ORDERED: Calcitriol 0.25 MCG CAP PO SCH (09:00)
[2020-05-07] MEDS ORDERED: NIFEdipine XL 60 MG TAB PO SCH (09:00)
[2020-05-07] MEDS: hydrALAZINE 25 MG TAB PO SCH (09:01)
[2020-05-07] MEDS: Lantus 1000 UNITS/10 ML VIAL SC SCH (09:02)
[2020-05-07] MEDS: Carvedilol 25 MG TAB PO SCH (09:03)
[2020-05-07] MEDS ORDERED: Sodium Chloride 0.9% 500 ML IV SCH (11:30)
[2020-05-07 15:58] VITALS: BP 149/74; TEMP 97.8
== END 2020-05-07 17:15 | disposition home or self-care (01) ==
LOC: ERS 10:26 → 2SW 12:05
PROVIDERS: ADMIT Internal Medicine; ATTEND Internal Medicine
DX: R55 Syncope and collapse (principal); I12.0 Hypertensive chronic kidney disease with stage 5 chronic kidney disease or end stage renal disease; E11.21 Type 2 diabetes mellitus with diabetic nephropathy; E11.22 Type 2 diabetes mellitus with diabetic chronic kidney disease; N18.6 End stage renal disease; D63.1 Anemia in chronic kidney disease; I65.23 Occlusion and stenosis of bilateral carotid arteries; R77.8 Other specified abnormalities of plasma proteins; I45.10 Unspecified right bundle-branch block; E78.5 Hyperlipidemia, unspecified; E78.00 Pure hypercholesterolemia, unspecified; E66.9 Obesity, unspecified; Z68.33 Body mass index [BMI] 33.0-33.9, adult; Z79.4 Long term (current) use of insulin; Z79.82 Long term (current) use of aspirin; Z79.899 Other long term (current) drug therapy; Z99.2 Dependence on renal dialysis
CPT/HCPCS: 36415; 36416; 70450; 71045; 78451; 80053; 80061; 82553; 83735; 83880; 84484; 85025; 85379; 93306; 93880; 93970; A9540; G0378; J1815